=== PATIENT | female | born 1975 | race African-American/Black ===

== ENCOUNTER 2020-06-11 05:25 | Inpatient (IN) | payer MEDICARE, OTHER ==
[~2020-06-11] VITALS: Ht 167.6 cm; Wt 72.6 kg
[2020-06-11] VITALS (11 sets, daily range): BP systolic 120–170; BP diastolic 75–97
[2020-06-11] MEDS ORDERED: METFORMIN HCL500 M1 ORAL (05:31)
[2020-06-11] MEDS ORDERED: ASPIRIN81 MG ORAL (05:31)
--- NOTE | 2020-06-11 06:12 | Emergency Room Report ---
History of Present Illness General Chief Complaint: Dyspnea/Respdistress Source: Patient, EMS Present Illness HPI Disclaimer: Please note that this report is being documented using DRAGON technology. This can lead to erroneous entry secondary to incorrect interpretation by the dictating instrument. HPI: 44-year-old female history of HIV undetectable viral load, prediabetes, hypertension presents for evaluation of cough and shortness of breath. Arrives by EMS who stated she was 95% on room air and improved to the low 90s with facemask. Diagnosed with pneumonia [facility] 2 days ago. Reportedly tested negative for COVID-19 virus at that time. She was discharged on azithromycin, amoxicillin and steroids. Reports getting worse. Increasing shortness of breath and cough as well as fatigue and myalgias. Denies fever vomiting or diarrhea. Denies chest pain, palpitations. No exacerbating or relieving factors. PMH: HIV, prediabetes, obesity PSH: Reviewed Allergies: None Social Hx: Denies Allergies: Coded Allergies: No Known Allergies (Unverified , 06/11/20) COVID-19 Screening Contact w/high risk pt: No Experienced COVID-19 symptoms?: Yes COVID-19 Testing performed MATHEMATICS LECTURER: No COVID-19 Screening: Negative COVID-19 COVID-19 Testing Source: 06/09/20 Nursing Documentation-PMH Hx Asthma: Yes Hx Diabetes: Yes Review of Systems All Other Systems: negative except mentioned in HPI Physical Exam Vital Signs Date Time Temp Pulse Resp B/P (MAP) Pulse Ox O2 Delivery O2 Flow Rate FiO2 06/11/20 05:26 99.0 110 20 150/90 (110) 93 Non-Rebreather 15.0 General: Awake and alert, no acute distress HEENT: NC/AT. EOMI. Cardiovascular: Tachycardic Resp: Increased work of breathing, tachypnea, crackles left side Abdomen: Abdomen is soft, nondistended. Nontender Skin: Intact. No abrasions, laceration or rash over the exposed skin MSK: Normal tone and bulk. Moving all extremities. No obvious deformity. Neuro: Awake and alert. Mentating appropriately. Procedures Critical Care Time Critical Care Time Total critical care time: Approximately 45 minutes Due to a high probability of clinically significant, life threatening deterioration, the patient required the highest level of preparedness to intervene emergently and I personally spent this critical care time directly and personally managing the patient. This critical care time included obtaining a history, examining the patient, pulse oximetry, ordering and reviewing studies, ordering treatments, evaluating response to treatment and updating management plan as needed, frequent reassessment and discussion with other providers as well as arranging for ultimate disposition. This critical to care time was performed to assess and manage the high probability of life-threatening deterioration that could result in multiorgan failure. This critical care time is separate from the separately billable procedures and treating other patients. Medical Decision Making Diagnostic Impression: Primary Impression: Pneumonia Additional Impressions: Suspected COVID-19 virus infection Hypoxia JIMENA (acute kidney injury) Elevated d-dimer ER Course Is a 44-year-old female presenting for evaluation of worsening cough and shortness of breath recently being diagnosed with pneumonia. Patient is on antibiotics but appears to be getting worse. Concern for worsening pneumonia, COVID-19 infection, influenza, sepsis among others. Started on 30 cc/kg bolus. Patient was reportedly hypoxic on room air and improving with facemask but work of breathing remains increased. Will require admission. EKG shows sinus tachycardia but no obvious ischemic changes. Chest x-ray shows bilateral basilar congestion possible infiltrate right lower lobe. Patient treated with Zosyn. IV steroids given. Initial ABG shows 94% oxygen saturation. We will continue nonrebreather and recheck. Inflammatory markers and D-dimer elevated. Treated with Lovenox. Suspicious for COVID-19 infection. Patient admitted to panel physician, Dr. Bolton. Laboratory Tests Test 06/11/20 06:00 06/11/20 06:53 White Blood Count 8.0 K/UL (4.8-10.8) Red Blood Count 5.23 M/UL (4.20-5.40) Hemoglobin 16.1 G/DL (12.0-16.0) H Hematocrit 45.9 % (37.0-47.0) Mean Corpuscular Volume 88 FL (80-99) Mean Corpuscular Hemoglobin 30.8 PG (27.0-31.0) Mean Corpuscular Hemoglobin Concent 35.1 G/DL (32.0-36.0) Red Cell Distribution Width 12.8 % (11.6-14.8) Platelet Count 222 K/UL (150-450) Mean Platelet Volume 7.2 FL (6.5-10.1) Neutrophils (%) (Auto) 83.5 % (45.0-75.0) H Lymphocytes (%) (Auto) 11.5 % (20.0-45.0) L Monocytes (%) (Auto) 4.7 % (1.0-10.0) Eosinophils (%) (Auto) 0.0 % (0.0-3.0) Basophils (%) (Auto) 0.3 % (0.0-2.0) Prothrombin Time 10.7 SEC (9.30-11.50) Prothrombin Time INR 1.0 (0.9-1.1) Activated Partial Thromboplast Time 29 SEC (23-33) D-Dimer 2.05 mg/L FEU (0.00-0.49) H Sodium Level 136 MMOL/L (136-145) Potassium Level 4.5 MMOL/L (3.5-5.1) Chloride Level 101 MMOL/L (98-107) Carbon Dioxide Level 22 MMOL/L (21-32) Anion Gap 13 mmol/L (5-15) Blood Urea Nitrogen 18 mg/dL (7-18) Creatinine 1.8 MG/DL (0.55-1.30) H Estimated Glomerular Filtration Rate 37.1 mL/min (>60) Glucose Level 131 MG/DL (74-106) H Lactic Acid Level 1.30 mmol/L (0.4-2.0) Calcium Level 8.8 MG/DL (8.5-10.1) Phosphorus Level 3.2 MG/DL (2.5-4.9) Magnesium Level 2.2 MG/DL (1.8-2.4) Ferritin 493 NG/ML (8-388) H Total Bilirubin 0.5 MG/DL (0.2-1.0) Aspartate Amino Transferase (AST) 98 U/L (15-37) H Alanine Aminotransferase (ALT) 66 U/L (12-78) Alkaline Phosphatase 91 U/L (46-116) Lactate Dehydrogenase 425 U/L (81-234) H Total Creatine Kinase 2158 U/L (26-308) H Creatine Kinase MB 0.7 NG/ML (0.0-3.6) Creatine Kinase MB Relative Index 0.0 Troponin I 0.000 ng/mL (0.000-0.056) C-Reactive Protein, Quantitative 9.5 mg/dL (0.00-0.90) H Pro-B-Type Natriuretic Peptide Pending Total Protein 9.4 G/DL (6.4-8.2) H Albumin 3.7 G/DL (3.4-5.0) Globulin 5.7 g/dL Albumin/Globulin Ratio 0.6 (1.0-2.7) L Lipase 131 U/L (73-393) Arterial Blood pH 7.413 (7.350-7.450) Arterial Blood Partial Pressure CO2 30.8 mmHg (35.0-45.0) L Arterial Blood Partial Pressure O2 73.0 mmHg (75.0-100.0) L Arterial Blood HCO3 19.2 mmol/L (22.0-26.0) L Arterial Blood Oxygen Saturation 94.1 % (95-100) L Arterial Blood Base Excess -4.0 (-2-2) L Manan Test Positive EKG Diagnostic Results Troponin ordered: Yes When was troponin ordered?: Jun 11, 2020 EKG Time: 06:18 Rate: tachycardiac Rhythm: NSR ST Segments: no acute changes Other Impression Sinus rhythm, normal axis, normal intervals, no ST segment changes. Rhythm Strip Diag. Results Rhythm Strip Time: 06:18 EP Interpretation: yes Rate: 104 Rhythm: NSR, no PVC's, no ectopy Chest X-Ray Diagnostic Results Chest X-Ray Diagnostic Results : Chest X-Ray Ordered: Yes # of Views/Limited/Complete: 1 View Indication: Shortness of Breath EP Interpretation: Yes Interpretation: no effusion, no pneumothorax, other - Infiltrate right lower lobe with bilateral basilar congestion. Impression: Other - Right lower lobe pneumonia Electronically Signed by: Electronically signed by Dr. Reagan Gutierrez MD Last Vital Signs Date Time Temp Pulse Resp B/P (MAP) Pulse Ox O2 Delivery O2 Flow Rate FiO2 06/11/20 05:45 110 20 Non-Rebreather 15.0 06/11/20 05:45 99.0 150/90 93 Disposition: ADMITTED INPATIENT Condition: Serious Reagan Gutierrez MD Jun 11, 2020 06:12
[2020-06-11] MEDS ORDERED: dexAMETHasone 10mg/ml Inj IV ONE (06:45)
--- NOTE | 2020-06-11 06:50 | Diagnostic Imaging Report ---
EXAM: XR Chest, 1 View CLINICAL HISTORY: COUGH TECHNIQUE: Frontal view of the chest. COMPARISON: 10/03/2006. FINDINGS: Lungs: Patient's overlying oxygen mask partly obscures the right lung apex. Hazy opacities in the lower lung zones which may partly reflect atelectasis. Small effusion difficult to exclude. Severe low lung volume limit evaluation. Pleural space: Unremarkable. No pneumothorax. Heart: Cardiovascular silhouette appears prominent and accentuated by low lung volume. Mediastinum: Unremarkable. Bones/joints: Scoliosis of the thoracic spine. Vasculature: Slight prominence of the central vasculature. Tubes, lines and devices: Overlying chest leads obscure portion of the chest. IMPRESSION: 1. Low lung volume. 2. Possible mild congestion. 3. Mild bibasilar atelectasis. Tiny bilateral pleural effusions difficult to exclude 4. Upper limits of normal cardiovascular silhouette
[2020-06-11 07:14] LABS: BASOPHILS % (AUTO) 0.3 % (0.0-2.0); HEMATOCRIT 45.9 % (37.0-47.0); HEMOGLOBIN 16.1 G/DL (12.0-16.0); LYMPHOCYTES % (AUTO) 11.5 % (20.0-45.0); MEAN CORPUSCULAR VOLUME 88 FL (80-99); MONOCYTES % (AUTO) 4.7 % (1.0-10.0); NEUTROPHILS % (AUTO) 83.5 % (45.0-75.0); PLATELET COUNT 222 K/UL (150-450); RED BLOOD COUNT 5.23 M/UL (4.20-5.40); RED CELL DISTRIBUTION WIDTH 12.8 % (11.6-14.8)
[2020-06-11 07:27] LABS: ANION GAP 13 mmol/L (5-15); BLOOD UREA NITROGEN 18 mg/dL (7-18); CALCIUM 8.8 MG/DL (8.5-10.1); CARBON DIOXIDE 22 MMOL/L (21-32); CHLORIDE 101 MMOL/L (98-107); CREATININE 1.8 MG/DL (0.55-1.30); POTASSIUM 4.5 MMOL/L (3.5-5.1); SODIUM 136 MMOL/L (136-145)
[2020-06-11] MEDS ORDERED: Piperacillin/Tazobactam 3.375 GM in NS 110 ML IVPB ONE (07:30)
[2020-06-11 07:42] LABS: ALANINE AMINOTRANSFERASE 66 U/L (12-78); ALBUMIN 3.7 G/DL (3.4-5.0); ALBUMIN/GLOBULIN RATIO 0.6 (1.0-2.7); ALKALINE PHOSPHATASE 91 U/L (46-116); ASPARTATE AMINO TRANSFERASE 98 U/L (15-37); BILIRUBIN,TOTAL 0.5 MG/DL (0.2-1.0); CKMB 0.7 NG/ML (0.0-3.6); CREATINE KINASE 2158 U/L (26-308); FERRITIN 493 NG/ML (8-388); LACTATE DEHYDROGENASE 425 U/L (81-234); PHOSPHORUS 3.2 MG/DL (2.5-4.9)
[2020-06-11] MEDS ORDERED: Acetaminophen 500mg (ES) tab ORAL ONE (08:00)
[2020-06-11] MEDS ORDERED: Enoxaparin 60mg Inj SUBQ ONE (08:00)
[2020-06-11 09:24] LABS: APPEARANCE,URINE CLEAR; BILIRUBIN, URINE NEGATIVE (NEGATIVE); COLOR,URINE PALE YELLOW; GLUCOSE, URINE (UA) NEGATIVE (NEGATIVE); KETONES,URINE 1+ (NEGATIVE); LEUKOCYTE ESTERASE ,URINE NEGATIVE (NEGATIVE); NITRITE,URINE NEGATIVE (NEGATIVE); PH,URINE 5 (4.5-8.0); PROTEIN,URINE 3+ (NEGATIVE); UROBILINOGEN,URINE NORMAL MG/DL (0.0-1.0)
--- NOTE | 2020-06-11 10:15 | History and Physical Report ---
DATE OF ADMISSION: 06/11/2020 REASON FOR ADMISSION: Possible COVID pneumonia. HISTORY OF PRESENT ILLNESS: The patient is a 44-year-old female who presents with what appears to be atelectasis and what was described as fevers and recent pneumonia. The patient is unsure as to COVID status. The patient currently diagnosed with pneumonia at an outside hospital three days ago with negative COVID rapid test. The patient presents with worsening shortness of breath. The patient with significantly low oxygen saturations on admission but is now 94% on 2 liters. The patient's care discussed and reviewed with the ER physician. The patient also has a history of HIV. PAST MEDICAL HISTORY: HIV, prediabetes, obesity. PAST SURGICAL HISTORY: Reviewed. ALLERGIES: None. SOCIAL HISTORY: Nonsmoker and nondrinker. No IV drug use. PHYSICAL EXAMINATION: GENERAL: A well-developed female, in mild distress. VITAL SIGNS: Reviewed. Temperature 99, pulse 100, respiratory rate 29, blood pressure 147/86, O2 saturation 94% on 2 liters. LUNGS: Moderate breath sounds. CARDIAC: Mildly tachycardic. ABDOMEN: Soft, nontender. EXTREMITIES: No edema. LABORATORY DATA: Reviewed. Creatinine 1.8. Ferritin 493. LDH 425. Total CK 2158. C-reactive protein 9.5. IMPRESSION: 1. Pneumonia, possible COVID. 2. Elevated creatine kinase, possible mild rhabdo. 3. Elevated creatinine with acute renal failure. 4. HIV, currently nondetectable. 5. Noted metabolic acidosis and hypoxemia. RECOMMENDATION: Admit. ID evaluation to see. close monitoring in ICU . IV hydration. Empiric antibiotics. DVT prophylaxis. Obtain venous ultrasound to rule out DVT. Monitor clinically for changes. Admitted to telemetry and monitor oxygen saturation and worsening overall respiratory status. We will follow clinically for further changes. Robinson Bolton M.D. DR: Oniel JOB#: [id number] CC: ESTRELLA
--- NOTE | 2020-06-11 14:00 | Consultation ---
DATE OF CONSULTATION: 06/11/2020 INFECTIOUS DISEASE CONSULTATION CONSULTING PHYSICIAN: Kyle Calderon MD. REFERRING PHYSICIAN: Robinson Bolton MD. REASON FOR CONSULTATION: Pneumonia. HISTORY OF PRESENTING ILLNESS: This is a 44-year-old lady with history of HIV, T-cell count of 326, viral load undetectable, who comes in with cough, shortness of breath, fever, chills along with nausea. She was found to have pneumonia. COVID-19 test was negative and an Infectious Diseases consultation has been obtained for antibiotics. PAST MEDICAL HISTORY: 1. History of HIV. 2. History of prediabetes. SOCIAL HISTORY: She does not smoke, drink, or use drugs. FAMILY HISTORY: Noncontributory. REVIEW OF SYSTEMS: RESPIRATORY: She has fever and chills. She has cough. She has shortness of breath. No chest pain. CARDIAC: No chest pain. No palpitation. No dizziness. No syncope. GASTROINTESTINAL: No nausea. No vomiting. No abdominal pain or diarrhea. MEDICATIONS: As an inpatient, she has received Tylenol, Zosyn, dexamethasone. ALLERGIES: No known drug allergies. PHYSICAL EXAMINATION: VITAL SIGNS: Temperature is 99, T-max of 99, pulse of 100, respiratory rate of 29, blood pressure 147/86. O2 saturation of 94% on 2 liters of oxygen. Examination deferred due to possibility of COVID-19. LABORATORY AND DIAGNOSTIC DATA: White count of 8, hemoglobin 16.1, hematocrit 45.9, MCV 88, platelet count of 222,000, neutrophils of 83%. Sodium 136, potassium 4.5, chloride 101, bicarb 22, BUN 18, creatinine 1.8. Glucose 131. Calcium 8. Ferritin 493. Total bilirubin 0.5, AST 98, ALT 66, alkaline phosphatase 91. LDH 425. CK of 2158, CK-MB of 0.7. Troponin 0. C-reactive protein 9.5. Total protein 9.4, albumin 3.7. Lipase of 131. UA showing 0 to 2 white cells. Chest x-ray showing low lung volumes. Mild bibasilar atelectasis. Tiny bilateral pleural effusion. ASSESSMENT: This is a 44-year-old lady with history of HIV, T-cell count of 326, viral load undetectable, and prediabetes, who comes in with fever, chills, cough, shortness of breath and is found to have, 1. Community-acquired pneumonia versus atypical pneumonia. 2. COVID-19 at an outside facility. 3. Prediabetes. 4. HIV. PLAN: 1. We will start the patient on ceftriaxone and doxycycline. 2. We will follow up cultures and adjust antibiotics accordingly. 3. We will order sputum for Gram stain and culture. I would like to thank Dr. Bolton for this consultation. Kyle Calderon M.D. DR: MARISSA JOB#: [id number] CC:
[2020-06-11] MEDS ORDERED: Azithromycin 500 MG in NS 275 ML IV ONE (16:15)
[2020-06-11] MEDS ORDERED: Albuterol/Ipratropium 3ml neb HHN ONE (19:30)
[2020-06-11] MEDS ORDERED: propofoL 1,000mg/100ml 100 ML IV ONE (21:11)
--- NOTE | 2020-06-11 21:22 | Diagnostic Imaging Report ---
EXAM: XR Chest, 1 View CLINICAL HISTORY: SOB TECHNIQUE: Frontal view of the chest. COMPARISON: 06/11/2020. FINDINGS: Lungs: Bilateral vague opacities within the mid lower lung field suggestive of atelectasis versus infiltrates, stable. Pleural space: Unremarkable. No pneumothorax. Heart: Unremarkable. No cardiomegaly. Mediastinum: Unremarkable. Bones/joints: Unremarkable. Other findings: Decreased inspiratory effort. IMPRESSION: Unchanged bilateral mid lower lung field density suggestive of atelectasis versus infiltrates. Cannot exclude underlying pleural effusions.
[2020-06-11] MEDS: Doxycycline Monohydrate 100mg ORAL SCH (21:30)
[2020-06-11] MEDS: cefTRIAXone 1 GM in NS 55 ML IVPB SCH (21:32)
--- NOTE | 2020-06-11 21:42 | Emergency Room Report ---
History of Present Illness General Chief Complaint: Dyspnea/Respdistress Source: Patient, EMS Present Illness Allergies: Coded Allergies: No Known Allergies (Unverified , 06/11/20) COVID-19 Screening Contact w/high risk pt: No Experienced COVID-19 symptoms?: Yes COVID-19 Testing performed SURGICAL CONSULTANT: No COVID-19 Screening: Negative COVID-19 COVID-19 Testing Source: 06/09/20 Nursing Documentation-[facility] Hx Asthma: Yes Hx Diabetes: Yes Physical Exam Vital Signs Date Time Temp Pulse Resp B/P (MAP) Pulse Ox O2 Delivery O2 Flow Rate FiO2 06/11/20 05:26 99.0 110 40 150/90 (110) 93 Non-Rebreather 15.0 Procedures Intubation Intubation : Consent: Emergent Time of Intubation: 21:17 Intubation Method: orotracheal Tube Size (cm): 7.5 Medications: Etomidate, Rocuronium, Succinylcholine Breath Sounds after Intubation: equal, right greater than left Post Intubation Xray: Yes Attempts: One Patient Tolerated: Well Complications: None Progress Bilateral patchy infiltrates continue. Adequate intratracheal tube position. Direct visualization of vocal cords with MAC 4 blade, positive end-tidal CO2. He was premedicated with rocuronium as well as etomidate. Patient was started on a propofol drip. Medical Decision Making Diagnostic Impression: Primary Impression: Pneumonia Additional Impressions: Elevated d-dimer Suspected COVID-19 virus infection Hypoxia JIMENA (acute kidney injury) Last Vital Signs Date Time Temp Pulse Resp B/P (MAP) Pulse Ox O2 Delivery O2 Flow Rate FiO2 06/11/20 19:45 99.0 92 43 149/78 88 Non-Rebreather 15.0 Disposition: ADMITTED INPATIENT Condition: Serious Referrals: NOT CHOSEN IPA/,REFERRING (PCP) Arron Christie MD Jun 11, 2020 21:42
[2020-06-11] MEDS: propofoL 1,000mg/100ml 100 ML IV SCH (21:48)
[2020-06-11] MEDS ORDERED: LORazepam Inj 2mg/ml 1ml ONE (22:10)
--- NOTE | 2020-06-11 22:12 | Diagnostic Imaging Report ---
EXAM: XR Chest, 1 View CLINICAL HISTORY: TUBE PLCMT TECHNIQUE: Frontal view of the chest. COMPARISON: 06/11/2020. FINDINGS: Lungs: Mild bilateral basilar airspace opacity suggestive of atelectasis versus infiltrates, stable in the interval. Pleural space: Unremarkable. No pneumothorax. Heart: Unremarkable. No cardiomegaly. Mediastinum: Unremarkable. Bones/joints: Unremarkable. Tubes, lines and devices: There is an endotracheal tube with the tip 3 cm above kyung. IMPRESSION: 1. Stable bilateral basilar densities suggestive of atelectasis versus infiltrates. 2. Lines and tubes as described.
[2020-06-11] MEDS ORDERED: LORazepam Inj 2mg/ml 1ml IV ONE (22:30)
[2020-06-11] MEDS: fentaNYL 2500mcg/NS 250ml 250 ML IV SCH (23:05)
[2020-06-11 23:09] LABS: BASOPHILS % (AUTO) 0.2 % (0.0-2.0); HEMATOCRIT 45.6 % (37.0-47.0); LYMPHOCYTES % (AUTO) 12.6 % (20.0-45.0); MEAN CORPUSCULAR VOLUME 88 FL (80-99); MONOCYTES % (AUTO) 6.4 % (1.0-10.0); NEUTROPHILS % (AUTO) 80.9 % (45.0-75.0); PLATELET COUNT 228 K/UL (150-450); RED BLOOD COUNT 5.19 M/UL (4.20-5.40); RED CELL DISTRIBUTION WIDTH 13.4 % (11.6-14.8)
[2020-06-11 23:28] LABS: CALCIUM 8.4 MG/DL (8.5-10.1); CREATININE 1.6 MG/DL (0.55-1.30); POTASSIUM 4.7 MMOL/L (3.5-5.1)
[2020-06-12] VITALS (23 sets, daily range): BP systolic 112–136; BP diastolic 67–87
[2020-06-12] MEDS: propofoL 1,000mg/100ml 100 ML IV SCH ×5 (00:46→20:01)
[2020-06-12 05:37] LABS: BASOPHILS % (AUTO) 0.7 % (0.0-2.0); HEMATOCRIT 40.9 % (37.0-47.0); HEMOGLOBIN 14.6 G/DL (12.0-16.0); LYMPHOCYTES % (AUTO) 13.4 % (20.0-45.0); MEAN CORPUSCULAR VOLUME 86 FL (80-99); MONOCYTES % (AUTO) 6.6 % (1.0-10.0); NEUTROPHILS % (AUTO) 79.3 % (45.0-75.0); PLATELET COUNT 231 K/UL (150-450); RED BLOOD COUNT 4.75 M/UL (4.20-5.40); RED CELL DISTRIBUTION WIDTH 14.5 % (11.6-14.8); WHITE BLOOD COUNT 9.8 K/UL (4.8-10.8)
[2020-06-12 06:12] LABS: ANION GAP 10 mmol/L (5-15); BLOOD UREA NITROGEN 21 mg/dL (7-18); CALCIUM 7.9 MG/DL (8.5-10.1); CARBON DIOXIDE 24 MMOL/L (21-32); CHLORIDE 103 MMOL/L (98-107); CREATINE KINASE 951 U/L (26-308); CREATININE 1.4 MG/DL (0.55-1.30); POTASSIUM 5.1 MMOL/L (3.5-5.1); SODIUM 137 MMOL/L (136-145)
[2020-06-12] MEDS: fentaNYL 2500mcg/NS 250ml 250 ML IV SCH ×2 (08:17→16:16)
[2020-06-12] MEDS: Doxycycline Monohydrate 100mg ORAL SCH ×2 (08:20→18:22)
[2020-06-12] MEDS: Enoxaparin 40mg Inj SUBQ SCH (08:31)
--- NOTE | 2020-06-12 09:17 | General Progress Note ---
Subjective ROS Limited/Unobtainable: No Constitutional: Reports: no symptoms HEENT: Reports: no symptoms Cardiovascular: Reports: no symptoms Respiratory: Reports: cough, shortness of breath Gastrointestinal/Abdominal: Reports: no symptoms Genitourinary: Reports: no symptoms Neurologic/Psychiatric: Reports: no symptoms Endocrine: Reports: no symptoms Hematologic/Lymphatic: Reports: no symptoms Allergies: Coded Allergies: No Known Allergies (Unverified , 06/11/20) All Systems: reviewed and negative except above Subjective 44 yo female hx hiv and recent pna(covid neg) BIBA ambulance for sob and hypoxemia. intubated for resp failure. PMH: as above PSH: Unknown Meds: none All: NKDA Fhx:Unknown SHx: no known Hx t/e/d Objective Last 24 Hour Vital Signs Date Time Temp Pulse Resp B/P (MAP) Pulse Ox O2 Delivery O2 Flow Rate FiO2 06/12/20 08:17 18 116/72 Mechanical Ventilator 100 06/12/20 06:45 86 16 100 06/12/20 06:00 99.0 86 18 112/74 98 Mechanical Ventilator 100 06/12/20 06:00 18 112/74 Mechanical Ventilator 100 06/12/20 06:00 18 112/74 Mechanical Ventilator 100 06/12/20 05:05 18 121/81 Mechanical Ventilator 15.0 100 06/12/20 05:00 99.0 86 16 121/81 97 Mechanical Ventilator 100 06/12/20 05:00 16 121/81 Mechanical Ventilator 100 06/12/20 05:00 16 121/81 Mechanical Ventilator 100 06/12/20 04:00 99.0 82 16 112/74 98 Mechanical Ventilator 100 06/12/20 04:00 16 112/74 Mechanical Ventilator 100 06/12/20 04:00 16 112/74 100 06/12/20 03:00 99.0 80 17 116/75 97 Mechanical Ventilator 100 06/12/20 03:00 17 116/75 Mechanical Ventilator 100 06/12/20 03:00 17 116/75 Mechanical Ventilator 100 06/12/20 02:38 102 16 100 06/12/20 02:00 18 120/80 Mechanical Ventilator 100 06/12/20 02:00 18 120/80 Mechanical Ventilator 100 06/12/20 02:00 99.0 80 18 120/80 97 Mechanical Ventilator 100 12/15/20 01:00 99.0 83 20 123/80 97 Mechanical Ventilator 100 06/12/20 01:00 20 123/80 Mechanical Ventilator 100 06/12/20 01:00 20 123/80 Mechanical Ventilator 100 06/12/20 00:46 24 123/78 Mechanical Ventilator 100 06/12/20 00:00 22 123/79 Mechanical Ventilator 100 06/12/20 00:00 22 123/79 Mechanical Ventilator 100 06/12/20 00:00 99.0 84 22 123/79 98 Mechanical Ventilator 100 06/11/20 23:05 36 121/84 Mechanical Ventilator 100 06/11/20 23:00 99.0 94 32 134/88 97 Mechanical Ventilator 100 06/11/20 23:00 119 36 121/84 88 06/11/20 23:00 32 134/88 Mechanical Ventilator 100 06/11/20 22:29 119 16 149/78 88 06/11/20 22:00 99.0 111 21 170/97 96 Mechanical Ventilator 100 06/11/20 22:00 21 170/97 Mechanical Ventilator 100 06/11/20 22:00 100 06/11/20 21:48 16 149/78 Non-Rebreather 100 06/11/20 21:33 119 16 100 06/11/20 21:00 99.0 118 21 148/82 92 Non-Rebreather 15.0 06/11/20 19:45 99.0 92 43 149/78 88 Non-Rebreather 15.0 06/11/20 19:43 88 41 88 Simple Mask 10.0 97 38 87 06/11/20 19:30 99.0 118 40 138/84 85 Simple Mask 10.0 06/11/20 19:10 99.0 120 40 135/84 70 Nasal Cannula 2.0 06/11/20 16:47 88 26 120/75 93 Nasal Cannula 2.0 06/11/20 13:46 96 22 140/86 94 Nasal Cannula 2.0 Intake and Output 06/11/20 06/12/20 19:00 07:00 Intake Total 1250.338 ml Balance 1250.338 ml Intake IV Total 1250.338 ml Laboratory Tests 06/11/20 20:00: Arterial Blood pH 7.394, Arterial Blood Partial Pressure CO2 30.0L, Arterial Blood Partial Pressure O2 60.4L, Arterial Blood HCO3 17.9*L, Arterial Blood Oxygen Saturation 90.3L, Arterial Blood Base Excess -5.5L, Manan Test Positive 06/11/20 22:40: White Blood Count 10.0, Red Blood Count 5.19, Hemoglobin 16.0, Hematocrit 45.6, Mean Corpuscular Volume 88, Mean Corpuscular Hemoglobin 30.7, Mean Corpuscular Hemoglobin Concent 35.0, Red Cell Distribution Width 13.4, Platelet Count 228, Mean Platelet Volume 7.4, Neutrophils (%) (Auto) 80.9H, Lymphocytes (%) (Auto) 12.6L, Monocytes (%) (Auto) 6.4, Eosinophils (%) (Auto) 0.0, Basophils (%) (Auto) 0.2, Sodium Level 137, Potassium Level 4.7, Chloride Level 102, Carbon Dioxide Level 23, Anion Gap 13, Blood Urea Nitrogen 18, Creatinine 1.6H, Estimat Glomerular Filtration Rate 42.4, Glucose Level 156H, Calcium Level 8.4L, Triglycerides Level 217H 06/11/20 22:50: Arterial Blood pH 7.285L, Arterial Blood Partial Pressure CO2 42.5, Arterial Blood Partial Pressure O2 98.3, Arterial Blood HCO3 19.7L, Arterial Blood Oxygen Saturation 96.1, Arterial Blood Base Excess -6.7L, Manan Test Positive 06/12/20 05:00: White Blood Count 9.8, Red Blood Count 4.75, Hemoglobin 14.6, Hematocrit 40.9, Mean Corpuscular Volume 86, Mean Corpuscular Hemoglobin 30.8, Mean Corpuscular Hemoglobin Concent 35.7, Red Cell Distribution Width 14.5, Platelet Count 231, Mean Platelet Volume 7.3, Neutrophils (%) (Auto) 79.3H, Lymphocytes (%) (Auto) 13.4L, Monocytes (%) (Auto) 6.6, Eosinophils (%) (Auto) 0.0, Basophils (%) (Auto) 0.7, Sodium Level 137, Potassium Level 5.1, Chloride Level 103, Carbon Dioxide Level 24, Anion Gap 10, Blood Urea Nitrogen 21H, Creatinine 1.4H, Estimat Glomerular Filtration Rate 49.6, Glucose Level 150H, Calcium Level 7.9L, Total Creatine Kinase 951H Height (Feet): 5 Height (Inches): 6.00 Weight (Pounds): 160 General Appearance: WD/WN, lethargic EENT: normal ENT inspection Neck: supple Cardiovascular: normal rate, regular rhythm Respiratory/Chest: lungs clear, normal breath sounds, no respiratory distress, no accessory muscle use Abdomen: normal bowel sounds, non tender, soft, no organomegaly Edema: no edema noted Leg (R), no edema noted Pedal (L) Neurologic: unresponsive Assessment/Plan Assessment/Plan: a/ resp failure pna/possible covid hiv arf rhabdo p/ vent resp rx follow up covid abx per id monitor ck dvt/stress ulcer prophylaxis check venous duplex Karel Key MD Jun 12, 2020 09:17
--- NOTE | 2020-06-12 12:40 | Critical Care Progress Note ---
Assessment/Plan Assessment/Plan IMPRESSION: 1. Pneumonia, possible COVID. 2. Elevated creatine kinase, possible mild rhabdo. 3. Elevated creatinine with acute renal failure. 4. HIV, currently nondetectable. 5. metabolic acidosis 6. hypoxemia. 7. Acute hypoxemic respiratory failure RECOMMENDATION: ID to see. IV hydration. Empiric antibiotics as is and Decadron. DVT prophylaxis. venous ultrasound to rule out DVT. Monitor clinically for changes. dietary and NGT supportive care medications/laboratory data/nursing notes/ICU care reviewed in detail note reviewed and edited care discussed with RN and RT ICU time spent >40 minutes Critical Care - Subjective Interval Events: care noted intubated last night acidemic repeat pending sedated still awaiting ICU bed ROS Limited/Unobtainable: Yes Condition: critical I&O: Intake and Output 06/11/20 06/12/20 19:00 07:00 Intake Total 1272.111 ml Balance 1272.111 ml Intake IV Total 1272.111 ml Critical Care - Objective ET-Tube: 7.0 ET Position: 24 Last 24 Hour Vital Signs Date Time Temp Pulse Resp B/P (MAP) Pulse Ox O2 Delivery O2 Flow Rate FiO2 06/12/20 10:40 81 21 100 06/12/20 09:12 18 119/78 Mechanical Ventilator 100 06/12/20 09:10 18 115/65 Mechanical Ventilator 100 06/12/20 09:00 93 18 118/68 98 Mechanical Ventilator 100 06/12/20 09:00 18 118/68 Mechanical Ventilator 100 06/12/20 08:17 18 116/72 Mechanical Ventilator 100 06/12/20 08:00 99.3 89 18 121/72 99 Mechanical Ventilator 100 06/12/20 08:00 16 121/72 Mechanical Ventilator 100 06/12/20 07:00 18 123/84 Mechanical Ventilator 100 06/12/20 07:00 16 117/69 Mechanical Ventilator 100 06/12/20 07:00 90 18 117/69 99 Mechanical Ventilator 100 06/12/20 06:45 86 16 100 06/12/20 06:00 99.0 86 18 112/74 98 Mechanical Ventilator 100 06/12/20 06:00 18 112/74 Mechanical Ventilator 100 06/12/20 06:00 18 112/74 Mechanical Ventilator 100 06/12/20 05:05 18 121/81 Mechanical Ventilator 15.0 100 06/12/20 05:00 99.0 86 16 121/81 97 Mechanical Ventilator 100 06/12/20 05:00 16 121/81 Mechanical Ventilator 100 06/12/20 05:00 16 121/81 Mechanical Ventilator 100 06/12/20 04:00 99.0 82 16 112/74 98 Mechanical Ventilator 100 06/12/20 04:00 16 112/74 Mechanical Ventilator 100 06/12/20 04:00 16 112/74 100 06/12/20 03:00 99.0 80 17 116/75 97 Mechanical Ventilator 100 06/12/20 03:00 17 116/75 Mechanical Ventilator 100 06/12/20 03:00 17 116/75 Mechanical Ventilator 100 06/12/20 02:38 102 16 100 06/12/20 02:00 18 120/80 Mechanical Ventilator 100 06/12/20 02:00 18 120/80 Mechanical Ventilator 100 06/12/20 02:00 99.0 80 18 120/80 97 Mechanical Ventilator 100 06/12/20 01:00 99.0 83 20 123/80 97 Mechanical Ventilator 100 06/12/20 01:00 20 123/80 Mechanical Ventilator 100 06/12/20 01:00 20 123/80 Mechanical Ventilator 100 06/12/20 00:46 24 123/78 Mechanical Ventilator 100 06/12/20 00:00 22 123/79 Mechanical Ventilator 100 06/12/20 00:00 22 123/79 Mechanical Ventilator 100 06/12/20 00:00 99.0 84 22 123/79 98 Mechanical Ventilator 100 06/11/20 23:05 36 121/84 Mechanical Ventilator 100 06/11/20 23:00 99.0 94 32 134/88 97 Mechanical Ventilator 100 06/11/20 23:00 119 36 121/84 88 06/11/20 23:00 32 134/88 Mechanical Ventilator 100 06/11/20 22:29 119 16 149/78 88 06/11/20 22:00 99.0 111 21 170/97 96 Mechanical Ventilator 100 06/11/20 22:00 21 170/97 Mechanical Ventilator 100 06/11/20 22:00 100 06/11/20 21:48 16 149/78 Non-Rebreather 100 06/11/20 21:33 119 16 100 06/11/20 21:00 99.0 118 21 148/82 92 Non-Rebreather 15.0 06/11/20 19:45 99.0 92 43 149/78 88 Non-Rebreather 15.0 06/11/20 19:43 88 41 88 Simple Mask 10.0 97 38 87 06/11/20 19:30 99.0 118 40 138/84 85 Simple Mask 10.0 06/11/20 19:10 99.0 120 40 135/84 70 Nasal Cannula 2.0 06/11/20 16:47 88 26 120/75 93 Nasal Cannula 2.0 06/11/20 13:46 96 22 140/86 94 Nasal Cannula 2.0 Labs: Laboratory Tests 06/11/20 20:00: Arterial Blood pH 7.394, Arterial Blood Partial Pressure CO2 30.0L, Arterial Blood Partial Pressure O2 60.4L, Arterial Blood HCO3 17.9*L, Arterial Blood Oxygen Saturation 90.3L, Arterial Blood Base Excess -5.5L, Manan Test Positive 06/11/20 22:40: White Blood Count 10.0, Red Blood Count 5.19, Hemoglobin 16.0, Hematocrit 45.6, Mean Corpuscular Volume 88, Mean Corpuscular Hemoglobin 30.7, Mean Corpuscular Hemoglobin Concent 35.0, Red Cell Distribution Width 13.4, Platelet Count 228, Mean Platelet Volume 7.4, Neutrophils (%) (Auto) 80.9H, Lymphocytes (%) (Auto) 12.6L, Monocytes (%) (Auto) 6.4, Eosinophils (%) (Auto) 0.0, Basophils (%) (Auto) 0.2, Sodium Level 137, Potassium Level 4.7, Chloride Level 102, Carbon Dioxide Level 23, Anion Gap 13, Blood Urea Nitrogen 18, Creatinine 1.6H, Estimat Glomerular Filtration Rate 42.4, Glucose Level 156H, Calcium Level 8.4L, Triglycerides Level 217H 06/11/20 22:50: Arterial Blood pH 7.285L, Arterial Blood Partial Pressure CO2 42.5, Arterial Blood Partial Pressure O2 98.3, Arterial Blood HCO3 19.7L, Arterial Blood Oxygen Saturation 96.1, Arterial Blood Base Excess -6.7L, Manan Test Positive 06/12/20 05:00: White Blood Count 9.8, Red Blood Count 4.75, Hemoglobin 14.6, Hematocrit 40.9, Mean Corpuscular Volume 86, Mean Corpuscular Hemoglobin 30.8, Mean Corpuscular Hemoglobin Concent 35.7, Red Cell Distribution Width 14.5, Platelet Count 231, Mean Platelet Volume 7.3, Neutrophils (%) (Auto) 79.3H, Lymphocytes (%) (Auto) 13.4L, Monocytes (%) (Auto) 6.6, Eosinophils (%) (Auto) 0.0, Basophils (%) (Auto) 0.7, Sodium Level 137, Potassium Level 5.1, Chloride Level 103, Carbon Dioxide Level 24, Anion Gap 10, Blood Urea Nitrogen 21H, Creatinine 1.4H, Estimat Glomerular Filtration Rate 49.6, Glucose Level 150H, Calcium Level 7.9L, Total Creatine Kinase 951H Objective: deferred due to possible COVID Accucheck: 157 Robinson Bolton MD Jun 12, 2020 12:40
--- NOTE | 2020-06-12 14:52 | Diagnostic Imaging Report ---
Indication: Post orogastric tube placement Technique: One view of the upper abdomen Comparison: none Findings: Satisfactory endotracheal tube position, endotracheal tube tip projecting approximately 4 cm above the kyung. There is an orogastric tube in place, tip projected at the level of the gastric antrum. There are bilateral peripheral mostly basilar infiltrates. The heart size is normal. There is thoracic scoliotic deformity Impression: Satisfactory endotracheal and orogastric intubation Bilateral infiltrates, likely multifocal pneumonia
--- NOTE | 2020-06-12 15:22 | Diagnostic Imaging Report ---
Indication: Shortness of breath Technique: Grayscale and duplex images of the bilateral lower extremity veins Comparison: None Findings: Bilaterally, grayscale and duplex images demonstrate no evidence of intraluminal thrombus. Normal phasic Doppler waveforms, demonstrating normal augmentation response and no evidence of valvular insufficiency. Greater saphenous vein(s) and tibial veins are patent. Normal compressibility. Impression: Negative for evidence of lower extremity deep venous thrombosis bilaterally
[2020-06-12] MEDS ORDERED: Midazolam 2mg/2ml Inj IVP ONE (19:45)
[2020-06-12] MEDS: cefTRIAXone 1 GM in NS 55 ML IVPB SCH (21:35)
[2020-06-13] VITALS (33 sets, daily range): BP systolic 109–159; BP diastolic 60–84
[2020-06-13] MEDS: propofoL 1,000mg/100ml 100 ML IV SCH ×2 (00:02→05:45)
[2020-06-13] MEDS: fentaNYL 2500mcg/NS 250ml 250 ML IV SCH ×3 (00:03→15:59)
[2020-06-13] MEDS: Midazolam for drip 50 MG in NS 90 ML IV SCH ×2 (02:30→11:32)
[2020-06-13 04:29] LABS: CALCIUM 7.8 MG/DL (8.5-10.1); CREATININE 1.6 MG/DL (0.55-1.30); POTASSIUM 4.9 MMOL/L (3.5-5.1)
[2020-06-13 04:31] LABS: HEMATOCRIT 39.1 % (37.0-47.0); HEMOGLOBIN 13.9 G/DL (12.0-16.0); MEAN CORPUSCULAR VOLUME 88 FL (80-99); PLATELET COUNT 245 K/UL (150-450); RED BLOOD COUNT 4.45 M/UL (4.20-5.40); RED CELL DISTRIBUTION WIDTH 12.7 % (11.6-14.8); WHITE BLOOD COUNT 10.7 K/UL (4.8-10.8)
[2020-06-13] MEDS: Doxycycline Monohydrate 100mg ORAL SCH (09:50)
[2020-06-13] MEDS: Enoxaparin 40mg Inj SUBQ SCH (10:05)
--- NOTE | 2020-06-13 10:46 | Infectious Diseases Prog Note ---
Assessment/Plan Assessment/Plan antibiotics : ceftriaxone, doxycycline A 1. COVID 19 pneumonia on 100 percent Fi O2, saturation 94 percent 2. HIV, T-cell count of 326, viral load undetectable 3. prediabetes 4. respiratory failure P 1. start remdesivir 2. continue dexamethasone day 3 3. d/c ceftriaxone, doxycycline 4. will follow up cultures 5. continue isolation Subjective ROS Limited/Unobtainable: Yes Allergies: Coded Allergies: No Known Allergies (Unverified , 06/11/20) Objective Last 24 Hour Vital Signs Date Time Temp Pulse Resp B/P (MAP) Pulse Ox O2 Delivery O2 Flow Rate FiO2 06/13/20 09:04 94 29 90 06/13/20 09:00 18 Mechanical Ventilator 100 06/13/20 09:00 18 122/75 Mechanical Ventilator 100 06/13/20 09:00 18 122/75 Mechanical Ventilator 100 06/13/20 08:00 18 Mechanical Ventilator 100 06/13/20 08:00 18 122/75 Mechanical Ventilator 100 06/13/20 08:00 18 122/75 Mechanical Ventilator 100 06/13/20 07:41 98.1 95 18 123/74 94 Mechanical Ventilator 15.0 100 06/13/20 07:40 18 123/74 Mechanical Ventilator 100 06/13/20 07:30 18 Mechanical Ventilator 100 06/13/20 07:30 18 123/74 Mechanical Ventilator 100 06/13/20 07:15 18 Mechanical Ventilator 90 06/13/20 07:15 18 114/79 Mechanical Ventilator 90 06/13/20 07:00 20 121/76 Mechanical Ventilator 90 06/13/20 07:00 20 121/76 Mechanical Ventilator 90 06/13/20 07:00 98.1 95 20 121/76 94 Mechanical Ventilator 100 06/13/20 06:30 18 117/72 Mechanical Ventilator 95 06/13/20 06:30 18 114/72 Mechanical Ventilator 90 06/13/20 06:00 21 122/71 Mechanical Ventilator 90 06/13/20 06:00 21 122/71 Mechanical Ventilator 90 06/13/20 06:00 89 18 117/74 95 Mechanical Ventilator 100 06/13/20 05:45 19 119/73 Mechanical Ventilator 100 06/13/20 05:15 18 Mechanical Ventilator 100 06/13/20 05:15 19 119/73 Mechanical Ventilator 100 06/13/20 05:00 18 Mechanical Ventilator 100 06/13/20 05:00 18 118/70 Mechanical Ventilator 100 06/13/20 05:00 18 113/77 Mechanical Ventilator 100 06/13/20 05:00 92 14 113/76 95 Mechanical Ventilator 100 06/13/20 04:00 99.1 86 15 117/70 95 Mechanical Ventilator 100 06/13/20 04:00 17 Mechanical Ventilator 100 06/13/20 04:00 17 121/70 Mechanical Ventilator 95 06/13/20 04:00 17 121/70 Mechanical Ventilator 95 06/13/20 03:00 85 16 124/72 97 Mechanical Ventilator 100 06/13/20 03:00 18 Mechanical Ventilator 100 06/13/20 03:00 16 121/71 Mechanical Ventilator 100 06/13/20 03:00 18 118/74 Mechanical Ventilator 100 06/13/20 02:50 16 116/72 Mechanical Ventilator 100 06/13/20 02:45 18 Mechanical Ventilator 100 06/13/20 02:45 18 118/74 Mechanical Ventilator 100 06/13/20 02:40 18 124/69 Mechanical Ventilator 100 06/13/20 02:32 88 25 100 06/13/20 02:30 20 Mechanical Ventilator 100 06/13/20 02:30 18 117/74 Mechanical Ventilator 100 06/13/20 02:15 19 118/69 Mechanical Ventilator 100 06/13/20 02:00 87 15 126/74 97 Mechanical Ventilator 100 06/13/20 02:00 20 128/72 Mechanical Ventilator 100 06/13/20 02:00 24 128/72 Mechanical Ventilator 100 06/13/20 01:50 26 126/80 Mechanical Ventilator 100 06/13/20 01:45 20 122/72 Mechanical Ventilator 100 06/13/20 01:40 18 120/76 Mechanical Ventilator 100 06/13/20 01:35 20 118/68 Mechanical Ventilator 100 06/13/20 01:30 18 119/70 Mechanical Ventilator 100 06/13/20 01:25 20 120/73 Mechanical Ventilator 22 06/13/20 01:20 19 120/74 Mechanical Ventilator 100 06/13/20 01:15 18 124/70 Mechanical Ventilator 100 06/13/20 01:10 18 118/72 Mechanical Ventilator 100 06/13/20 01:05 20 113/70 Mechanical Ventilator 100 06/13/20 01:00 86 18 122/70 97 Mechanical Ventilator 100 12/16/20 01:00 17 122/75 Mechanical Ventilator 100 06/13/20 01:00 17 122/74 Mechanical Ventilator 100 06/13/20 00:03 17 117/70 Mechanical Ventilator 90 06/13/20 00:02 17 115/70 Mechanical Ventilator 90 06/13/20 00:00 98.5 84 15 118/72 97 Mechanical Ventilator 90 06/12/20 23:00 82 18 117/69 98 Mechanical Ventilator 90 06/12/20 23:00 18 117/69 Mechanical Ventilator 90 06/12/20 23:00 18 117/69 Mechanical Ventilator 90 06/12/20 22:45 94 26 90 06/12/20 22:00 86 17 116/69 95 Mechanical Ventilator 90 06/12/20 22:00 17 116/69 Mechanical Ventilator 90 06/12/20 22:00 17 116/69 Mechanical Ventilator 90 06/12/20 21:00 83 20 115/68 96 Mechanical Ventilator 90 06/12/20 21:00 20 118/68 Mechanical Ventilator 90 06/12/20 21:00 20 118/68 Mechanical Ventilator 90 06/12/20 20:01 22 122/72 Mechanical Ventilator 15.0 90 06/12/20 20:00 97.9 84 18 118/73 98 Mechanical Ventilator 90 06/12/20 20:00 20 122/72 Mechanical Ventilator 90 06/12/20 20:00 20 122/72 Mechanical Ventilator 90 06/12/20 20:00 84 16 Mechanical Ventilator 15.0 90 06/12/20 19:02 88 28 90 06/12/20 19:00 22 119/67 Mechanical Ventilator 90 06/12/20 19:00 22 119/67 Mechanical Ventilator 90 06/12/20 19:00 85 22 119/67 94 Mechanical Ventilator 90 06/12/20 18:00 87 22 136/75 95 Mechanical Ventilator 15.0 80 06/12/20 18:00 22 136/75 Mechanical Ventilator 80 06/12/20 18:00 22 136/75 Mechanical Ventilator 80 06/12/20 17:00 23 127/72 Mechanical Ventilator 80 06/12/20 17:00 23 127/72 Mechanical Ventilator 70 06/12/20 17:00 87 20 127/72 94 Mechanical Ventilator 70 06/12/20 16:16 20 121/74 Mechanical Ventilator 70 06/12/20 16:15 18 121/69 Mechanical Ventilator 70 06/12/20 16:00 97.8 87 20 121/76 95 Mechanical Ventilator 70 06/12/20 16:00 16 121/76 Mechanical Ventilator 70 06/12/20 16:00 16 121/76 Mechanical Ventilator 70 06/12/20 15:30 93 20 70 06/12/20 15:03 18 125/83 Mechanical Ventilator 70 06/12/20 15:00 91 20 122/81 95 Mechanical Ventilator 70 06/12/20 15:00 17 122/81 Mechanical Ventilator 70 06/12/20 15:00 17 122/81 Mechanical Ventilator 70 06/12/20 14:00 20 117/79 Mechanical Ventilator 70 06/12/20 14:00 20 117/79 Mechanical Ventilator 70 06/12/20 14:00 97 20 117/79 95 Mechanical Ventilator 70 06/12/20 13:00 92 21 122/87 95 Mechanical Ventilator 15.0 70 06/12/20 13:00 18 122/7 Mechanical Ventilator 70 06/12/20 13:00 18 122/87 Mechanical Ventilator 70 06/12/20 12:00 15 120/83 Mechanical Ventilator 100 06/12/20 12:00 15 120/83 Mechanical Ventilator 100 06/12/20 12:00 98.0 88 21 120/83 100 Mechanical Ventilator 100 06/12/20 11:00 17 120/85 Mechanical Ventilator 100 06/12/20 11:00 17 120/85 Mechanical Ventilator 100 06/12/20 11:00 88 21 120/85 98 Mechanical Ventilator 100 06/12/20 10:40 81 21 100 Height (Feet): 5 Height (Inches): 6.00 Weight (Pounds): 160 HEENT: other - intubated Microbiology Date/Time Source Procedure Growth Status 06/11/20 06:00 Nasopharynx Coronavirus COVID-19 PCR ([facility]) - Final Complete Laboratory Tests Test 06/12/20 12:40 06/13/20 04:08 06/13/20 08:06 Arterial Blood pH 7.312 (7.350-7.450) 7.332 (7.350-7.450) Arterial Blood Partial Pressure CO2 41.0 mmHg (35.0-45.0) 42.6 mmHg (35.0-45.0) Arterial Blood Partial Pressure O2 233.5 mmHg (75.0-100.0) H 75.5 mmHg (75.0-100.0) Arterial Blood HCO3 20.3 mmol/L (22.0-26.0) L 22.1 mmol/L (22.0-26.0) Arterial Blood Oxygen Saturation 98.4 % (95-100) 94.3 % (95-100) L Arterial Blood Base Excess -5.6 (-2-2) L -3.7 (-2-2) L Manan Test Positive Positive White Blood Count 10.7 K/UL (4.8-10.8) Red Blood Count 4.45 M/UL (4.20-5.40) Hemoglobin 13.9 G/DL (12.0-16.0) Hematocrit 39.1 % (37.0-47.0) Mean Corpuscular Volume 88 FL (80-99) Mean Corpuscular Hemoglobin 31.3 PG (27.0-31.0) H Mean Corpuscular Hemoglobin Concent 35.7 G/DL (32.0-36.0) Red Cell Distribution Width 12.7 % (11.6-14.8) Platelet Count 245 K/UL (150-450) Mean Platelet Volume 7.3 FL (6.5-10.1) Neutrophils (%) (Auto) % (45.0-75.0) Lymphocytes (%) (Auto) % (20.0-45.0) Monocytes (%) (Auto) % (1.0-10.0) Eosinophils (%) (Auto) % (0.0-3.0) Basophils (%) (Auto) % (0.0-2.0) Sodium Level 140 MMOL/L (136-145) Potassium Level 4.9 MMOL/L (3.5-5.1) Chloride Level 108 MMOL/L (98-107) H Carbon Dioxide Level 22 MMOL/L (21-32) Anion Gap 10 mmol/L (5-15) Blood Urea Nitrogen 30 mg/dL (7-18) H Creatinine 1.6 MG/DL (0.55-1.30) H Estimat Glomerular Filtration Rate 42.4 mL/min (>60) Glucose Level 146 MG/DL (74-106) H Calcium Level 7.8 MG/DL (8.5-10.1) L Triglycerides Level 319 MG/DL (30-150) H Current Medications Medications (Trade) Dose Ordered Sig/Candis Route PRN Reason Start Time Stop Time Status Last Admin Dose Admin Acetaminophen (Tylenol) 650 mg Q4H PRN ORAL fever 06/11/20 19:30 07/11/20 19:29 Ceftriaxone Sodium 1 gm/ Sodium Chloride 55 ml @ 110 mls/hr Q24H IVPB 06/11/20 22:00 06/17/20 22:29 06/12/20 21:35 Dexamethasone Sodium Phosphate (Decadron 4mg/ml vial) 6 mg DAILY IVP 06/12/20 09:00 06/20/20 09:01 06/13/20 09:50 Doxycycline Monohydrate (Doxycycline Monohydrate) 100 mg BID ORAL 06/11/20 21:30 06/18/20 09:01 06/13/20 09:50 Enoxaparin Sodium (Lovenox) 40 mg DAILY SUBQ 06/12/20 09:00 09/10/20 08:59 06/13/20 10:05 Fentanyl Citrate 250 ml @ 1 mls/hr Q24H IV 06/12/20 16:30 06/14/20 16:29 06/13/20 07:40 Midazolam HCl 50 mg/Sodium Chloride 100 ml @ 0 mls/hr Q24H IV 06/13/20 02:15 06/15/20 02:13 06/13/20 02:30 Propofol 100 ml @ 2.177 mls/ hr Q12H IV 06/12/20 15:00 06/14/20 14:49 06/13/20 05:45 Sodium Chloride 1,000 ml @ 100 mls/hr Q10H IV 06/11/20 19:30 07/11/20 19:29 06/13/20 02:31 Kyle Calderon MD Jun 13, 2020 10:46
--- NOTE | 2020-06-13 11:23 | Critical Care Progress Note ---
Assessment/Plan Assessment/Plan IMPRESSION: 1. Pneumonia, COVID. 2. Elevated creatine kinase, mild rhabdo. 3. Elevated creatinine with acute renal failure. 4. HIV, currently nondetectable. 5. metabolic acidosis 6. hypoxemia. 7. Acute hypoxemic respiratory failure RECOMMENDATION: ID follow up. IV hydration. Empiric antibiotics as is and Decadron. DVT prophylaxis. venous ultrasound to rule out DVT. Monitor clinically for changes. dietary and NGT feeds supportive care sedation will hope to wean soon medications/laboratory data/nursing notes/ICU care reviewed in detail note reviewed and edited care discussed with RN and RT ICU time spent >40 minutes Critical Care - Subjective Interval Events: on vent moved to ICU sedated Condition: critical EKG Rhythm: Sinus Rhythm Residuals: minimal Tube Feeding Tolerated: yes I&O: Intake and Output 06/12/20 06/13/20 19:00 07:00 Intake Total 1643.308 ml 1596.753 ml Output Total 1600 ml Balance 43.308 ml 1596.753 ml Intake IV Total 1643.308 ml 1596.753 ml Output Urine Total 1600 ml Critical Care - Objective ET-Tube: 7.0 ET Position: 24 Last 24 Hour Vital Signs Date Time Temp Pulse Resp B/P (MAP) Pulse Ox O2 Delivery O2 Flow Rate FiO2 06/13/20 11:00 26 Mechanical Ventilator 100 06/13/20 11:00 26 133/78 Mechanical Ventilator 100 06/13/20 10:00 24 Mechanical Ventilator 100 06/13/20 10:00 24 146/70 Mechanical Ventilator 100 06/13/20 09:04 94 29 90 06/13/20 09:00 18 Mechanical Ventilator 100 06/13/20 09:00 18 122/75 Mechanical Ventilator 100 06/13/20 09:00 18 122/75 Mechanical Ventilator 100 06/13/20 08:00 18 Mechanical Ventilator 100 06/13/20 08:00 18 122/75 Mechanical Ventilator 100 06/13/20 08:00 18 122/75 Mechanical Ventilator 100 06/13/20 07:41 98.1 95 18 123/74 94 Mechanical Ventilator 15.0 100 06/13/20 07:40 18 123/74 Mechanical Ventilator 100 06/13/20 07:30 18 Mechanical Ventilator 100 06/13/20 07:30 18 123/74 Mechanical Ventilator 100 06/13/20 07:15 18 Mechanical Ventilator 90 06/13/20 07:15 18 114/79 Mechanical Ventilator 90 06/13/20 07:00 20 121/76 Mechanical Ventilator 90 06/13/20 07:00 20 121/76 Mechanical Ventilator 90 06/13/20 07:00 98.1 95 20 121/76 94 Mechanical Ventilator 100 06/13/20 06:30 18 117/72 Mechanical Ventilator 95 06/13/20 06:30 18 114/72 Mechanical Ventilator 90 06/13/20 06:00 21 122/71 Mechanical Ventilator 90 06/13/20 06:00 21 122/71 Mechanical Ventilator 90 06/13/20 06:00 89 18 117/74 95 Mechanical Ventilator 100 06/13/20 05:45 19 119/73 Mechanical Ventilator 100 06/13/20 05:15 18 Mechanical Ventilator 100 06/13/20 05:15 19 119/73 Mechanical Ventilator 100 06/13/20 05:00 18 Mechanical Ventilator 100 06/13/20 05:00 18 118/70 Mechanical Ventilator 100 06/13/20 05:00 18 113/77 Mechanical Ventilator 100 06/13/20 05:00 92 14 113/76 95 Mechanical Ventilator 100 06/13/20 04:00 99.1 86 15 117/70 95 Mechanical Ventilator 100 06/13/20 04:00 17 Mechanical Ventilator 100 06/13/20 04:00 17 121/70 Mechanical Ventilator 95 06/13/20 04:00 17 121/70 Mechanical Ventilator 95 06/13/20 03:00 85 16 124/72 97 Mechanical Ventilator 100 06/13/20 03:00 18 Mechanical Ventilator 100 06/13/20 03:00 16 121/71 Mechanical Ventilator 100 06/13/20 03:00 18 118/74 Mechanical Ventilator 100 06/13/20 02:50 16 116/72 Mechanical Ventilator 100 06/13/20 02:45 18 Mechanical Ventilator 100 06/13/20 02:45 18 118/74 Mechanical Ventilator 100 06/13/20 02:40 18 124/69 Mechanical Ventilator 100 06/13/20 02:32 88 25 100 06/13/20 02:30 20 Mechanical Ventilator 100 06/13/20 02:30 18 117/74 Mechanical Ventilator 100 06/13/20 02:15 19 118/69 Mechanical Ventilator 100 06/13/20 02:00 87 15 126/74 97 Mechanical Ventilator 100 06/13/20 02:00 20 128/72 Mechanical Ventilator 100 06/13/20 02:00 24 128/72 Mechanical Ventilator 100 06/13/20 01:50 26 126/80 Mechanical Ventilator 100 06/13/20 01:45 20 122/72 Mechanical Ventilator 100 06/13/20 01:40 18 120/76 Mechanical Ventilator 100 06/13/20 01:35 20 118/68 Mechanical Ventilator 100 06/13/20 01:30 18 119/70 Mechanical Ventilator 100 06/13/20 01:25 20 120/73 Mechanical Ventilator 22 06/13/20 01:20 19 120/74 Mechanical Ventilator 100 06/13/20 01:15 18 124/70 Mechanical Ventilator 100 06/13/20 01:10 18 118/72 Mechanical Ventilator 100 06/13/20 01:05 20 113/70 Mechanical Ventilator 100 06/13/20 01:00 86 18 122/70 97 Mechanical Ventilator 100 06/13/20 01:00 17 122/75 Mechanical Ventilator 100 06/13/20 01:00 17 122/74 Mechanical Ventilator 100 06/13/20 00:03 17 117/70 Mechanical Ventilator 90 06/13/20 00:02 17 115/70 Mechanical Ventilator 90 06/13/20 00:00 98.5 84 15 118/72 97 Mechanical Ventilator 90 06/12/20 23:00 82 18 117/69 98 Mechanical Ventilator 90 06/12/20 23:00 18 117/69 Mechanical Ventilator 90 06/12/20 23:00 18 117/69 Mechanical Ventilator 90 06/12/20 22:45 94 26 90 06/12/20 22:00 86 17 116/69 95 Mechanical Ventilator 90 06/12/20 22:00 17 116/69 Mechanical Ventilator 90 06/12/20 22:00 17 116/69 Mechanical Ventilator 90 06/12/20 21:00 83 20 115/68 96 Mechanical Ventilator 90 06/12/20 21:00 20 118/68 Mechanical Ventilator 90 06/12/20 21:00 20 118/68 Mechanical Ventilator 90 06/12/20 20:01 22 122/72 Mechanical Ventilator 15.0 90 06/12/20 20:00 97.9 84 18 118/73 98 Mechanical Ventilator 90 06/12/20 20:00 20 122/72 Mechanical Ventilator 90 06/12/20 20:00 20 122/72 Mechanical Ventilator 90 06/12/20 20:00 84 16 Mechanical Ventilator 15.0 90 06/12/20 19:02 88 28 90 06/12/20 19:00 22 119/67 Mechanical Ventilator 90 06/12/20 19:00 22 119/67 Mechanical Ventilator 90 06/12/20 19:00 85 22 119/67 94 Mechanical Ventilator 90 06/12/20 18:00 87 22 136/75 95 Mechanical Ventilator 15.0 80 06/12/20 18:00 22 136/75 Mechanical Ventilator 80 06/12/20 18:00 22 136/75 Mechanical Ventilator 80 06/12/20 17:00 23 127/72 Mechanical Ventilator 80 06/12/20 17:00 23 127/72 Mechanical Ventilator 70 06/12/20 17:00 87 20 127/72 94 Mechanical Ventilator 70 06/12/20 16:16 20 121/74 Mechanical Ventilator 70 06/12/20 16:15 18 121/69 Mechanical Ventilator 70 06/12/20 16:00 97.8 87 20 121/76 95 Mechanical Ventilator 70 06/12/20 16:00 16 121/76 Mechanical Ventilator 70 06/12/20 16:00 16 121/76 Mechanical Ventilator 70 06/12/20 15:30 93 20 70 06/12/20 15:03 18 125/83 Mechanical Ventilator 70 06/12/20 15:00 91 20 122/81 95 Mechanical Ventilator 70 06/12/20 15:00 17 122/81 Mechanical Ventilator 70 06/12/20 15:00 17 122/81 Mechanical Ventilator 70 06/12/20 14:00 20 117/79 Mechanical Ventilator 70 06/12/20 14:00 20 117/79 Mechanical Ventilator 70 06/12/20 14:00 97 20 117/79 95 Mechanical Ventilator 70 06/12/20 13:00 92 21 122/87 95 Mechanical Ventilator 15.0 70 06/12/20 13:00 18 122/7 Mechanical Ventilator 70 06/12/20 13:00 18 122/87 Mechanical Ventilator 70 06/12/20 12:00 15 120/83 Mechanical Ventilator 100 06/12/20 12:00 15 120/83 Mechanical Ventilator 100 06/12/20 12:00 98.0 88 21 120/83 100 Mechanical Ventilator 100 Labs: Laboratory Tests 06/12/20 12:40: Arterial Blood pH 7.312L, Arterial Blood Partial Pressure CO2 41.0, Arterial Blood Partial Pressure O2 233.5H, Arterial Blood HCO3 20.3L, Arterial Blood Oxygen Saturation 98.4, Arterial Blood Base Excess -5.6L, Manan Test Positive 06/13/20 04:06: Total Bilirubin [Pending], Direct Bilirubin [Pending], Aspartate Amino Transf (AST/SGOT) [Pending], Alanine Aminotransferase (ALT/SGPT) [Pending], Alkaline Phosphatase [Pending], Total Protein [Pending], Albumin [Pending] 06/13/20 04:08: White Blood Count 10.7, Red Blood Count 4.45, Hemoglobin 13.9, Hematocrit 39.1, Mean Corpuscular Volume 88, Mean Corpuscular Hemoglobin 31.3H, Mean Corpuscular Hemoglobin Concent 35.7, Red Cell Distribution Width 12.7, Platelet Count 245, Mean Platelet Volume 7.3, Neutrophils (%) (Auto) , Lymphocytes (%) (Auto) , Monocytes (%) (Auto) , Eosinophils (%) (Auto) , Basophils (%) (Auto) , Sodium Level 140, Potassium Level 4.9, Chloride Level 108H, Carbon Dioxide Level 22, Anion Gap 10, Blood Urea Nitrogen 30H, Creatinine 1.6H, Estimat Glomerular Filtration Rate 42.4, Glucose Level 146H, Calcium Level 7.8L, Triglycerides Level 319H 06/13/20 08:06: Arterial Blood pH 7.332L, Arterial Blood Partial Pressure CO2 42.6, Arterial Blood Partial Pressure O2 75.5, Arterial Blood HCO3 22.1, Arterial Blood Oxygen Saturation 94.3L, Arterial Blood Base Excess -3.7L, Manan Test Positive Objective: deferred due to COVID Micro: Microbiology Date/Time Source Procedure Growth Status 06/11/20 06:00 Nasopharynx Coronavirus COVID-19 PCR ([facility]) - Final Complete Accucheck: 157 Robinson Bolton MD Jun 13, 2020 11:23
[2020-06-13 11:30] LABS: ALANINE AMINOTRANSFERASE 47 U/L (12-78); ALBUMIN 2.9 G/DL (3.4-5.0); ALKALINE PHOSPHATASE 68 U/L (46-116); ASPARTATE AMINO TRANSFERASE 97 U/L (15-37); BILIRUBIN,DIRECT < 0.1 MG/DL (0.0-0.3); BILIRUBIN,TOTAL 0.4 MG/DL (0.2-1.0)
--- NOTE | 2020-06-13 13:42 | Diagnostic Imaging Report ---
Indication: Shortness of breath Technique: One view of the chest Comparison: 06/11/2020 Findings: Interim placement of an orogastric tube, tip of which projects beyond the edge of the image and probably well within the stomach. Stable satisfactory position of endotracheal tube. Bilateral basilar infiltrates versus edema persists. Likely left pleural effusion persists. Cardiomegaly persists. Impression: Satisfactory orogastric intubation Otherwise stable findings as described
[2020-06-13] MEDS: MIDAZOLAM FOR DRIP IV SCH ×2 (14:21→20:33)
[2020-06-13] MEDS: NS IV SCH ×2 (14:21→20:33)
[2020-06-13] MEDS ORDERED: Loading Dose:Remdesivir 200mg/NS 210ml IV SCH ×2 (16:00)
--- NOTE | 2020-06-13 17:26 | General Progress Note ---
Subjective ROS Limited/Unobtainable: Yes Constitutional: Reports: malaise, weakness HEENT: Reports: no symptoms Cardiovascular: Reports: no symptoms Respiratory: Reports: no symptoms Gastrointestinal/Abdominal: Reports: no symptoms Genitourinary: Reports: no symptoms Neurologic/Psychiatric: Reports: no symptoms Endocrine: Reports: no symptoms Hematologic/Lymphatic: Reports: no symptoms Allergies: Coded Allergies: No Known Allergies (Unverified , 06/11/20) All Systems: reviewed and negative except above Subjective remains intubated. on the vent. sedated. no distress. covid pcr + Objective Last 24 Hour Vital Signs Date Time Temp Pulse Resp B/P (MAP) Pulse Ox O2 Delivery O2 Flow Rate FiO2 06/13/20 17:00 100 22 120/65 (83) 93 06/13/20 16:30 98 21 123/71 (88) 94 06/13/20 16:30 100 24 123/71 (88) 92 06/13/20 16:00 105 06/13/20 16:00 102 21 126/71 (89) 92 06/13/20 16:00 Mechanical Ventilator 06/13/20 16:00 24 Mechanical Ventilator 100 06/13/20 16:00 100.5 97 21 126/71 (89) 93 06/13/20 16:00 95 06/13/20 15:59 24 119/69 Mechanical Ventilator 15.0 100 06/13/20 15:58 24 119/69 Mechanical Ventilator 100 06/13/20 15:00 24 Mechanical Ventilator 100 06/13/20 15:00 22 119/69 Mechanical Ventilator 100 06/13/20 15:00 93 20 121/71 (88) 94 06/13/20 14:21 22 Mechanical Ventilator 100 06/13/20 14:00 94 23 118/69 (85) 93 06/13/20 14:00 22 Mechanical Ventilator 100 06/13/20 14:00 22 140/72 Mechanical Ventilator 100 06/13/20 13:30 94 23 127/71 (89) 94 06/13/20 13:00 22 Mechanical Ventilator 100 06/13/20 13:00 22 140/64 Mechanical Ventilator 100 06/13/20 13:00 96 23 123/71 (88) 93 06/13/20 12:30 104 27 133/67 (89) 93 06/13/20 12:00 105 06/13/20 12:00 Mechanical Ventilator 12/16/20 12:00 26 Non-Rebreather 100 06/13/20 12:00 22 Mechanical Ventilator 100 06/13/20 12:00 26 Non-Rebreather 100 06/13/20 12:00 26 Non-Rebreather 100 06/13/20 12:00 26 Non-Rebreather 100 06/13/20 12:00 22 140/75 Mechanical Ventilator 100 06/13/20 12:00 100.3 101 27 142/84 (103) 94 06/13/20 11:32 26 Mechanical Ventilator 100 06/13/20 11:05 101 26 90 06/13/20 11:00 107 35 159/81 (107) 94 06/13/20 11:00 26 Mechanical Ventilator 100 06/13/20 11:00 26 133/78 Mechanical Ventilator 100 06/13/20 10:04 Mechanical Ventilator 06/13/20 10:00 102 35 150/80 (103) 94 06/13/20 10:00 24 Mechanical Ventilator 100 06/13/20 10:00 24 146/70 Mechanical Ventilator 100 06/13/20 10:00 100 06/13/20 09:30 91 06/13/20 09:04 94 29 90 06/13/20 09:04 94 29 94 Mechanical Ventilator 90 06/13/20 09:00 18 Mechanical Ventilator 100 06/13/20 09:00 18 122/75 Mechanical Ventilator 100 06/13/20 09:00 18 122/75 Mechanical Ventilator 100 06/13/20 09:00 100.0 100 35 150/80 (103) 96 06/13/20 08:40 98.1 95 18 123/74 97 Mechanical Ventilator 15.0 100 06/13/20 08:00 18 Mechanical Ventilator 100 06/13/20 08:00 18 122/75 Mechanical Ventilator 100 06/13/20 08:00 18 122/75 Mechanical Ventilator 100 06/13/20 07:41 98.1 95 18 123/74 94 Mechanical Ventilator 15.0 100 06/13/20 07:40 18 123/74 Mechanical Ventilator 100 06/13/20 07:30 18 Mechanical Ventilator 100 06/13/20 07:30 18 123/74 Mechanical Ventilator 100 06/13/20 07:15 18 Mechanical Ventilator 90 06/13/20 07:15 18 114/79 Mechanical Ventilator 90 06/13/20 07:00 20 121/76 Mechanical Ventilator 90 06/13/20 07:00 20 121/76 Mechanical Ventilator 90 06/13/20 07:00 98.1 95 20 121/76 94 Mechanical Ventilator 100 06/13/20 06:30 18 117/72 Mechanical Ventilator 95 06/13/20 06:30 18 114/72 Mechanical Ventilator 90 06/13/20 06:00 21 122/71 Mechanical Ventilator 90 06/13/20 06:00 21 122/71 Mechanical Ventilator 90 06/13/20 06:00 89 18 117/74 95 Mechanical Ventilator 100 06/13/20 05:45 19 119/73 Mechanical Ventilator 100 06/13/20 05:15 18 Mechanical Ventilator 100 06/13/20 05:15 19 119/73 Mechanical Ventilator 100 06/13/20 05:00 18 Mechanical Ventilator 100 06/13/20 05:00 18 118/70 Mechanical Ventilator 100 06/13/20 05:00 18 113/77 Mechanical Ventilator 100 06/13/20 05:00 92 14 113/76 95 Mechanical Ventilator 100 06/13/20 04:00 99.1 86 15 117/70 95 Mechanical Ventilator 100 06/13/20 04:00 17 Mechanical Ventilator 100 06/13/20 04:00 17 121/70 Mechanical Ventilator 95 06/13/20 04:00 17 121/70 Mechanical Ventilator 95 06/13/20 03:00 85 16 124/72 97 Mechanical Ventilator 100 06/13/20 03:00 18 Mechanical Ventilator 100 06/13/20 03:00 16 121/71 Mechanical Ventilator 100 06/13/20 03:00 18 118/74 Mechanical Ventilator 100 06/13/20 02:50 16 116/72 Mechanical Ventilator 100 06/13/20 02:45 18 Mechanical Ventilator 100 06/13/20 02:45 18 118/74 Mechanical Ventilator 100 06/13/20 02:40 18 124/69 Mechanical Ventilator 100 06/13/20 02:32 88 25 100 06/13/20 02:30 20 Mechanical Ventilator 100 06/13/20 02:30 18 117/74 Mechanical Ventilator 100 06/13/20 02:15 19 118/69 Mechanical Ventilator 100 06/13/20 02:00 87 15 126/74 97 Mechanical Ventilator 100 06/13/20 02:00 20 128/72 Mechanical Ventilator 100 06/13/20 02:00 24 128/72 Mechanical Ventilator 100 06/13/20 01:50 26 126/80 Mechanical Ventilator 100 06/13/20 01:45 20 122/72 Mechanical Ventilator 100 06/13/20 01:40 18 120/76 Mechanical Ventilator 100 06/13/20 01:35 20 118/68 Mechanical Ventilator 100 06/13/20 01:30 18 119/70 Mechanical Ventilator 100 06/13/20 01:25 20 120/73 Mechanical Ventilator 22 06/13/20 01:20 19 120/74 Mechanical Ventilator 100 06/13/20 01:15 18 124/70 Mechanical Ventilator 100 06/13/20 01:10 18 118/72 Mechanical Ventilator 100 06/13/20 01:05 20 113/70 Mechanical Ventilator 100 06/13/20 01:00 86 18 122/70 97 Mechanical Ventilator 100 06/13/20 01:00 17 122/75 Mechanical Ventilator 100 06/13/20 01:00 17 122/74 Mechanical Ventilator 100 06/13/20 00:03 17 117/70 Mechanical Ventilator 90 06/13/20 00:02 17 115/70 Mechanical Ventilator 90 06/13/20 00:00 98.5 84 15 118/72 97 Mechanical Ventilator 90 06/12/20 23:00 82 18 117/69 98 Mechanical Ventilator 90 06/12/20 23:00 18 117/69 Mechanical Ventilator 90 06/12/20 23:00 18 117/69 Mechanical Ventilator 90 06/12/20 22:45 94 26 90 06/12/20 22:00 86 17 116/69 95 Mechanical Ventilator 90 06/12/20 22:00 17 116/69 Mechanical Ventilator 90 06/12/20 22:00 17 116/69 Mechanical Ventilator 90 06/12/20 21:00 83 20 115/68 96 Mechanical Ventilator 90 06/12/20 21:00 20 118/68 Mechanical Ventilator 90 06/12/20 21:00 20 118/68 Mechanical Ventilator 90 06/12/20 20:01 22 122/72 Mechanical Ventilator 15.0 90 06/12/20 20:00 97.9 84 18 118/73 98 Mechanical Ventilator 90 06/12/20 20:00 20 122/72 Mechanical Ventilator 90 06/12/20 20:00 20 122/72 Mechanical Ventilator 90 06/12/20 20:00 84 16 Mechanical Ventilator 15.0 90 06/12/20 19:02 88 28 90 06/12/20 19:00 22 119/67 Mechanical Ventilator 90 06/12/20 19:00 22 119/67 Mechanical Ventilator 90 06/12/20 19:00 85 22 119/67 94 Mechanical Ventilator 90 06/12/20 18:00 87 22 136/75 95 Mechanical Ventilator 15.0 80 06/12/20 18:00 22 136/75 Mechanical Ventilator 80 06/12/20 18:00 22 136/75 Mechanical Ventilator 80 Intake and Output 06/12/20 06/13/20 19:00 07:00 Intake Total 1643.308 ml 1596.753 ml Output Total 1600 ml Balance 43.308 ml 1596.753 ml Intake IV Total 1643.308 ml 1596.753 ml Output Urine Total 1600 ml Laboratory Tests 06/13/20 04:06: Total Bilirubin 0.4, Direct Bilirubin < 0.1, Aspartate Amino Transf (AST/SGOT) 97H, Alanine Aminotransferase (ALT/SGPT) 47, Alkaline Phosphatase 68, Total Prot ein 8.2, Albumin 2.9L 06/13/20 04:08: White Blood Count 10.7, Red Blood Count 4.45, Hemoglobin 13.9, Hematocrit 39.1, Mean Corpuscular Volume 88, Mean Corpuscular Hemoglobin 31.3H, Mean Corpuscular Hemoglobin Concent 35.7, Red Cell Distribution Width 12.7, Platelet Count 245, Mean Platelet Volume 7.3, Neutrophils (%) (Auto) , Lymphocytes (%) (Auto) , Monocytes (%) (Auto) , Eosinophils (%) (Auto) , Basophils (%) (Auto) , Sodium Level 140, Potassium Level 4.9, Chloride Level 108H, Carbon Dioxide Level 22, Anion Gap 10, Blood Urea Nitrogen 30H, Creatinine 1.6H, Estimat Glomerular Filtration Rate 42.4, Glucose Level 146H, Calcium Level 7.8L, Triglycerides Level 319H 06/13/20 08:06: Arterial Blood pH 7.332L, Arterial Blood Partial Pressure CO2 42.6, Arterial Blood Partial Pressure O2 75.5, Arterial Blood HCO3 22.1, Arterial Blood Oxygen Saturation 94.3L, Arterial Blood Base Excess -3.7L, Manan Test Positive Height (Feet): 5 Height (Inches): 6.00 Weight (Pounds): 160 General Appearance: WD/WN, alert EENT: normal ENT inspection Neck: supple Cardiovascular: normal rate, regular rhythm Respiratory/Chest: chest wall non-tender, lungs clear, normal breath sounds Abdomen: normal bowel sounds, non tender, soft, no organomegaly Pelvis: normal external exam Edema: no edema noted Arm (L), no edema noted Arm (R) Assessment/Plan Assessment/Plan: a/ resp failure pna due to covid hiv arf rhabdo p/ vent resp rx follow up covid abx per id monitor ck dvt/stress ulcer prophylaxis check venous duplex Karel Key MD Jun 13, 2020 17:26
[2020-06-14] VITALS (39 sets, daily range): BP systolic 119–180; BP diastolic 59–102
[2020-06-14] MEDS: fentaNYL 2500mcg/NS 250ml 250 ML IV SCH ×3 (04:11→19:29)
[2020-06-14 05:23] LABS: HEMATOCRIT 39.3 % (37.0-47.0); HEMOGLOBIN 13.7 G/DL (12.0-16.0); MEAN CORPUSCULAR VOLUME 89 FL (80-99); PLATELET COUNT 266 K/UL (150-450); RED BLOOD COUNT 4.41 M/UL (4.20-5.40); WHITE BLOOD COUNT 14.2 K/UL (4.8-10.8)
[2020-06-14 05:51] LABS: ALBUMIN 2.5 G/DL (3.4-5.0); ALBUMIN/GLOBULIN RATIO 0.5 (1.0-2.7); BILIRUBIN,DIRECT 0.2 MG/DL (0.0-0.3); BILIRUBIN,TOTAL 0.6 MG/DL (0.2-1.0); CALCIUM 8.2 MG/DL (8.5-10.1); CREATININE 1.5 MG/DL (0.55-1.30); POTASSIUM 4.8 MMOL/L (3.5-5.1)
[2020-06-14] MEDS: NS IV SCH ×2 (06:12→23:00)
[2020-06-14] MEDS: MIDAZOLAM FOR DRIP IV SCH ×2 (06:12→23:00)
--- NOTE | 2020-06-14 07:36 | General Progress Note ---
Subjective ROS Limited/Unobtainable: Yes Constitutional: Reports: malaise, weakness HEENT: Reports: no symptoms Cardiovascular: Reports: no symptoms Respiratory: Reports: no symptoms Gastrointestinal/Abdominal: Reports: no symptoms Genitourinary: Reports: no symptoms Neurologic/Psychiatric: Reports: pre-existing deficit Endocrine: Reports: no symptoms Hematologic/Lymphatic: Reports: no symptoms Allergies: Coded Allergies: No Known Allergies (Unverified , 06/11/20) All Systems: reviewed and negative except above Subjective remains intubated. on the vent. sedated. no distress. covid pcr + +fevers. 92% on 90%fi02 Objective Last 24 Hour Vital Signs Date Time Temp Pulse Resp B/P (MAP) Pulse Ox O2 Delivery O2 Flow Rate FiO2 06/14/20 07:00 111 25 136/79 (98) 92 06/14/20 06:30 110 16 06/14/20 06:30 111 24 139/78 (98) 91 06/14/20 06:12 16 Mechanical Ventilator 90 06/14/20 06:00 16 Mechanical Ventilator 90 06/14/20 06:00 16 139/78 Mechanical Ventilator 90 06/14/20 06:00 107 25 147/80 (102) 92 06/14/20 05:30 104 25 142/76 (98) 93 06/14/20 05:00 100 23 148/75 (99) 93 06/14/20 05:00 16 Mechanical Ventilator 90 06/14/20 05:00 16 142/76 Mechanical Ventilator 90 06/14/20 04:30 96 24 132/76 (94) 92 06/14/20 04:11 16 131/71 90 06/14/20 04:00 99.5 92 25 131/71 (91) 91 06/14/20 04:00 16 Mechanical Ventilator 90 06/14/20 04:00 16 141/62 Mechanical Ventilator 90 06/14/20 04:00 91 06/14/20 04:00 Mechanical Ventilator 06/14/20 03:30 89 22 119/79 (92) 91 06/14/20 03:10 68 23 90 06/14/20 03:00 16 Mechanical Ventilator 90 06/14/20 03:00 16 128/78 Mechanical Ventilator 90 06/14/20 03:00 91 24 128/78 (95) 91 06/14/20 02:30 90 25 135/82 (99) 90 06/14/20 02:00 83 20 127/72 (90) 94 06/14/20 02:00 16 Mechanical Ventilator 90 06/14/20 02:00 16 127/74 Mechanical Ventilator 90 06/14/20 01:30 83 19 124/75 (91) 93 06/14/20 01:00 16 Mechanical Ventilator 90 06/14/20 01:00 16 128/74 Mechanical Ventilator 90 06/14/20 01:00 82 21 128/74 (92) 93 06/14/20 00:30 87 20 124/75 (91) 93 06/14/20 00:00 99 06/14/20 00:00 16 Mechanical Ventilator 90 06/14/20 00:00 16 123/69 Mechanical Ventilator 90 06/14/20 00:00 99.7 87 19 123/69 (87) 92 06/14/20 00:00 Mechanical Ventilator 06/13/20 23:30 87 17 109/69 (82) 94 06/13/20 23:30 108 21 90 06/13/20 23:00 89 17 123/65 (84) 94 06/13/20 23:00 16 Mechanical Ventilator 90 06/13/20 23:00 16 Mechanical Ventilator 90 06/13/20 23:00 16 123/65 Mechanical Ventilator 90 06/13/20 23:00 16 117/81 Mechanical Ventilator 90 06/13/20 22:45 16 Mechanical Ventilator 90 06/13/20 22:45 16 115/75 Mechanical Ventilator 90 06/13/20 22:30 87 17 122/70 (87) 95 06/13/20 22:00 16 Mechanical Ventilator 90 06/13/20 22:00 16 116/86 Mechanical Ventilator 90 06/13/20 22:00 100.0 95 17 119/73 (88) 94 06/13/20 21:45 95 18 125/60 (81) 94 06/13/20 21:45 16 Mechanical Ventilator 90 06/13/20 21:45 16 125/60 Mechanical Ventilator 90 06/13/20 21:30 95 18 125/68 (87) 93 06/13/20 21:03 101.2 06/13/20 21:00 23 Mechanical Ventilator 90 06/13/20 21:00 23 131/70 Mechanical Ventilator 90 06/13/20 21:00 100 21 130/68 (88) 92 06/13/20 20:33 18 Mechanical Ventilator 90 06/13/20 20:30 101.7 97 19 128/69 (88) 92 06/13/20 20:00 100 23 137/70 (92) 92 06/13/20 20:00 23 Mechanical Ventilator 90 06/13/20 20:00 23 137/70 Mechanical Ventilator 90 06/13/20 20:00 97 20 20:00 Mechanical Ventilator 06/13/20 19:30 97 16 124/69 (87) 95 06/13/20 19:00 110 20 90 06/13/20 19:00 101 20 122/72 (89) 95 06/13/20 19:00 22 Mechanical Ventilator 90 06/13/20 19:00 22 140/62 Mechanical Ventilator 90 06/13/20 18:00 99.7 102 20 118/67 (84) 92 06/13/20 18:00 24 Mechanical Ventilator 100 06/13/20 18:00 24 140/70 Mechanical Ventilator 100 06/13/20 17:00 24 Mechanical Ventilator 100 06/13/20 17:00 24 140/72 Mechanical Ventilator 100 06/13/20 17:00 100 22 120/65 (83) 93 06/13/20 16:52 99.7 06/13/20 16:30 98 21 123/71 (88) 94 06/13/20 16:30 100 24 123/71 (88) 92 06/13/20 16:00 105 06/13/20 16:00 102 21 126/71 (89) 92 06/13/20 16:00 Mechanical Ventilator 06/13/20 16:00 24 Mechanical Ventilator 100 06/13/20 16:00 100.5 97 21 126/71 (89) 93 06/13/20 16:00 95 06/13/20 15:59 24 119/69 Mechanical Ventilator 15.0 100 06/13/20 15:58 24 119/69 Mechanical Ventilator 100 06/13/20 15:00 24 Mechanical Ventilator 100 06/13/20 15:00 22 119/69 Mechanical Ventilator 100 06/13/20 15:00 93 20 121/71 (88) 94 06/13/20 14:55 99 21 90 06/13/20 14:21 22 Mechanical Ventilator 100 06/13/20 14:21 22 Mechanical Ventilator 100 12/16/20 14:00 94 23 118/69 (85) 93 06/13/20 14:00 22 Mechanical Ventilator 100 06/13/20 14:00 22 140/72 Mechanical Ventilator 100 06/13/20 13:30 94 23 127/71 (89) 94 06/13/20 13:00 22 Mechanical Ventilator 100 06/13/20 13:00 22 140/64 Mechanical Ventilator 100 06/13/20 13:00 96 23 123/71 (88) 93 06/13/20 12:30 104 27 133/67 (89) 93 06/13/20 12:00 105 06/13/20 12:00 Mechanical Ventilator 06/13/20 12:00 26 Non-Rebreather 100 06/13/20 12:00 22 Mechanical Ventilator 100 06/13/20 12:00 26 Non-Rebreather 100 06/13/20 12:00 26 Non-Rebreather 100 06/13/20 12:00 26 Non-Rebreather 100 06/13/20 12:00 22 140/75 Mechanical Ventilator 100 06/13/20 12:00 100.3 101 27 142/84 (103) 94 06/13/20 11:32 26 Mechanical Ventilator 100 06/13/20 11:05 101 26 90 06/13/20 11:00 107 35 159/81 (107) 94 06/13/20 11:00 26 Mechanical Ventilator 100 06/13/20 11:00 26 133/78 Mechanical Ventilator 100 06/13/20 10:04 Mechanical Ventilator 06/13/20 10:00 102 35 150/80 (103) 94 06/13/20 10:00 24 Mechanical Ventilator 100 06/13/20 10:00 24 146/70 Mechanical Ventilator 100 06/13/20 10:00 100 06/13/20 09:30 91 06/13/20 09:04 94 29 90 06/13/20 09:04 94 29 94 Mechanical Ventilator 90 06/13/20 09:00 18 Mechanical Ventilator 100 06/13/20 09:00 18 122/75 Mechanical Ventilator 100 06/13/20 09:00 18 122/75 Mechanical Ventilator 100 06/13/20 09:00 100.0 100 35 150/80 (103) 96 06/13/20 08:40 98.1 95 18 123/74 97 Mechanical Ventilator 15.0 100 06/13/20 08:00 18 Mechanical Ventilator 100 06/13/20 08:00 18 122/75 Mechanical Ventilator 100 06/13/20 08:00 18 122/75 Mechanical Ventilator 100 06/13/20 07:41 98.1 95 18 123/74 94 Mechanical Ventilator 15.0 100 06/13/20 07:40 18 123/74 Mechanical Ventilator 100 Intake and Output 06/13/20 06/14/20 19:00 07:00 Intake Total 1539.191 ml 1788.50 ml Output Total 1625 ml Balance 1539.191 ml 163.50 ml Intake Free Water 200 ml IV Total 1539.191 ml 1588.50 ml Output Urine Total 1625 ml # Voids 420 Laboratory Tests 06/13/20 08:06: Arterial Blood pH 7.332L, Arterial Blood Partial Pressure CO2 42.6, Arterial Blood Partial Pressure O2 75.5, Arterial Blood HCO3 22.1, Arterial Blood Oxygen Saturation 94.3L, Arterial Blood Base Excess -3.7L, Manan Test Positive 06/14/20 04:00: White Blood Count 14.2H, Red Blood Count 4.41, Hemoglobin 13.7, Hematocrit 39.3, Mean Corpuscular Volume 89, Mean Corpuscular Hemoglobin 31.1H, Mean Corpuscular Hemoglobin Concent 34.9, Red Cell Distribution Width 13.0, Platelet Count 266, Mean Platelet Volume 6.8, Neutrophils (%) (Auto) , Lymphocytes (%) (Auto) , Monocytes (%) (Auto) , Eosinophils (%) (Auto) , Basophils (%) (Auto) , Neutrophils % (Manual) [Pending], Lymphocytes % (Manual) [Pending], Platelet Estimate [Pending], Platelet Morphology [Pending], Sodium Level 143, Potassium Level 4.8, Chloride Level 109H, Carbon Dioxide Level 25, Anion Gap 9, Blood Urea Nitrogen 29H, Creatinine 1.5H, Estimat Glomerular Filtration Rate 45.7, Glucose Level 120H, Calcium Level 8.2L, Total Bilirubin 0.6, Direct Bilirubin 0.2, Aspartate Amino Transf (AST/SGOT) 192H, Alanine Aminotransferase (ALT/SGPT) 57, Alkaline Phosphatase 79, Total Protein 8.0, Albumin 2.5L, Globulin 5.5, Albumin/Globulin Ratio 0.5L Height (Feet): 5 Height (Inches): 6.00 Weight (Pounds): 160 Objective deferred due to covid+ Assessment/Plan Problem List: (1) Pneumonia due to COVID-19 virus ICD Codes: U07.1 - COVID-19; J12.89 - Other viral pneumonia (2) Hypoxia ICD Codes: R09.02 - Hypoxemia SNOMED: 310163374 (3) Elevated d-dimer ICD Codes: R79.89 - Other specified abnormal findings of blood chemistry SNOMED: 921030377 (4) JIMENA (acute kidney injury) ICD Codes: N17.9 - Acute kidney failure, unspecified SNOMED: 78540122, 6507390 (5) Pneumonia ICD Codes: J18.9 - Pneumonia, unspecified organism SNOMED: 654934884 Status: stable, not improved Assessment/Plan: a/ resp failure pna due to covid arf rhabdo ?DM venous duplex neg p/ vent resp rx follow up covid abx per id monitor ck monitor bs dvt/stress ulcer prophylaxis critical and guarded Karel Key MD Jun 14, 2020 07:36
--- NOTE | 2020-06-14 07:56 | Infectious Diseases Prog Note ---
Assessment/Plan Assessment/Plan A 1. COVID 19 pneumonia 2. HIV, T-cell count of 326, viral load undetectable 3. prediabetes 4. respiratory failure with hypoxemia 5. Acute renal failure P 1. Continue remdesivir 2. continue dexamethasone day 4 3. will follow up cultures 4. continue isolation Subjective ROS Limited/Unobtainable: Yes Allergies: Coded Allergies: No Known Allergies (Unverified , 06/11/20) Objective Last 24 Hour Vital Signs Date Time Temp Pulse Resp B/P (MAP) Pulse Ox O2 Delivery O2 Flow Rate FiO2 06/14/20 07:00 111 25 136/79 (98) 92 06/14/20 06:30 110 16 06/14/20 06:30 111 24 139/78 (98) 91 06/14/20 06:12 16 Mechanical Ventilator 90 06/14/20 06:00 16 Mechanical Ventilator 90 06/14/20 06:00 16 139/78 Mechanical Ventilator 90 06/14/20 06:00 107 25 147/80 (102) 92 06/14/20 05:30 104 25 142/76 (98) 93 06/14/20 05:00 100 23 148/75 (99) 93 06/14/20 05:00 16 Mechanical Ventilator 90 06/14/20 05:00 16 142/76 Mechanical Ventilator 90 06/14/20 04:30 96 24 132/76 (94) 92 06/14/20 04:11 16 131/71 90 06/14/20 04:00 99.5 92 25 131/71 (91) 91 06/14/20 04:00 16 Mechanical Ventilator 90 06/14/20 04:00 16 141/62 Mechanical Ventilator 90 06/14/20 04:00 91 06/14/20 04:00 Mechanical Ventilator 06/14/20 03:30 89 22 119/79 (92) 91 06/14/20 03:10 68 23 90 06/14/20 03:00 16 Mechanical Ventilator 90 06/14/20 03:00 16 128/78 Mechanical Ventilator 90 06/14/20 03:00 91 24 128/78 (95) 91 06/14/20 02:30 90 25 135/82 (99) 90 06/14/20 02:00 83 20 127/72 (90) 94 06/14/20 02:00 16 Mechanical Ventilator 90 12/17/20 02:00 16 127/74 Mechanical Ventilator 90 06/14/20 01:30 83 19 124/75 (91) 93 06/14/20 01:00 16 Mechanical Ventilator 90 06/14/20 01:00 16 128/74 Mechanical Ventilator 90 06/14/20 01:00 82 21 128/74 (92) 93 06/14/20 00:30 87 20 124/75 (91) 93 06/14/20 00:00 99 06/14/20 00:00 16 Mechanical Ventilator 90 06/14/20 00:00 16 123/69 Mechanical Ventilator 90 06/14/20 00:00 99.7 87 19 123/69 (87) 92 06/14/20 00:00 Mechanical Ventilator 06/13/20 23:30 87 17 109/69 (82) 94 06/13/20 23:30 108 21 90 06/13/20 23:00 89 17 123/65 (84) 94 06/13/20 23:00 16 Mechanical Ventilator 90 06/13/20 23:00 16 Mechanical Ventilator 90 06/13/20 23:00 16 123/65 Mechanical Ventilator 90 06/13/20 23:00 16 117/81 Mechanical Ventilator 90 06/13/20 22:45 16 Mechanical Ventilator 90 06/13/20 22:45 16 115/75 Mechanical Ventilator 90 06/13/20 22:30 87 17 122/70 (87) 95 06/13/20 22:00 16 Mechanical Ventilator 90 06/13/20 22:00 16 116/86 Mechanical Ventilator 90 06/13/20 22:00 100.0 95 17 119/73 (88) 94 06/13/20 21:45 95 18 125/60 (81) 94 06/13/20 21:45 16 Mechanical Ventilator 90 06/13/20 21:45 16 125/60 Mechanical Ventilator 90 06/13/20 21:30 95 18 125/68 (87) 93 06/13/20 21:03 101.2 06/13/20 21:00 23 Mechanical Ventilator 90 06/13/20 21:00 23 131/70 Mechanical Ventilator 90 06/13/20 21:00 100 21 130/68 (88) 92 06/13/20 20:33 18 Mechanical Ventilator 90 06/13/20 20:30 101.7 97 19 128/69 (88) 92 06/13/20 20:00 100 23 137/70 (92) 92 06/13/20 20:00 23 Mechanical Ventilator 90 06/13/20 20:00 23 137/70 Mechanical Ventilator 90 06/13/20 20:00 97 06/13/20 20:00 Mechanical Ventilator 06/13/20 19:30 97 16 124/69 (87) 95 06/13/20 19:00 110 20 90 06/13/20 19:00 101 20 122/72 (89) 95 06/13/20 19:00 22 Mechanical Ventilator 90 06/13/20 19:00 22 140/62 Mechanical Ventilator 90 06/13/20 18:00 99.7 102 20 118/67 (84) 92 06/13/20 18:00 24 Mechanical Ventilator 100 06/13/20 18:00 24 140/70 Mechanical Ventilator 100 06/13/20 17:00 24 Mechanical Ventilator 100 06/13/20 17:00 24 140/72 Mechanical Ventilator 100 06/13/20 17:00 100 22 120/65 (83) 93 06/13/20 16:52 99.7 06/13/20 16:30 98 21 123/71 (88) 94 06/13/20 16:30 100 24 123/71 (88) 92 06/13/20 16:00 105 06/13/20 16:00 102 21 126/71 (89) 92 06/13/20 16:00 Mechanical Ventilator 06/13/20 16:00 24 Mechanical Ventilator 100 06/13/20 16:00 100.5 97 21 126/71 (89) 93 06/13/20 16:00 95 06/13/20 15:59 24 119/69 Mechanical Ventilator 15.0 100 06/13/20 15:58 24 119/69 Mechanical Ventilator 100 06/13/20 15:00 24 Mechanical Ventilator 100 06/13/20 15:00 22 119/69 Mechanical Ventilator 100 06/13/20 15:00 93 20 121/71 (88) 94 06/13/20 14:55 99 21 90 06/13/20 14:21 22 Mechanical Ventilator 100 06/13/20 14:21 22 Mechanical Ventilator 100 06/13/20 14:00 94 23 118/69 (85) 93 06/13/20 14:00 22 Mechanical Ventilator 100 06/13/20 14:00 22 140/72 Mechanical Ventilator 100 06/13/20 13:30 94 23 127/71 (89) 94 06/13/20 13:00 22 Mechanical Ventilator 100 06/13/20 13:00 22 140/64 Mechanical Ventilator 100 06/13/20 13:00 96 23 123/71 (88) 93 06/13/20 12:30 104 27 133/67 (89) 93 06/13/20 12:00 105 06/13/20 12:00 Mechanical Ventilator 06/13/20 12:00 26 Non-Rebreather 100 06/13/20 12:00 22 Mechanical Ventilator 100 06/13/20 12:00 26 Non-Rebreather 100 06/13/20 12:00 26 Non-Rebreather 100 06/13/20 12:00 26 Non-Rebreather 100 06/13/20 12:00 22 140/75 Mechanical Ventilator 100 06/13/20 12:00 100.3 101 27 142/84 (103) 94 06/13/20 11:32 26 Mechanical Ventilator 100 06/13/20 11:05 101 26 90 06/13/20 11:00 107 35 159/81 (107) 94 06/13/20 11:00 26 Mechanical Ventilator 100 06/13/20 11:00 26 133/78 Mechanical Ventilator 100 06/13/20 10:04 Mechanical Ventilator 06/13/20 10:00 102 35 150/80 (103) 94 06/13/20 10:00 24 Mechanical Ventilator 100 06/13/20 10:00 24 146/70 Mechanical Ventilator 100 06/13/20 10:00 100 06/13/20 09:30 91 06/13/20 09:04 94 29 90 06/13/20 09:04 94 29 94 Mechanical Ventilator 90 06/13/20 09:00 18 Mechanical Ventilator 100 06/13/20 09:00 18 122/75 Mechanical Ventilator 100 06/13/20 09:00 18 122/75 Mechanical Ventilator 100 06/13/20 09:00 100.0 100 35 150/80 (103) 96 06/13/20 08:40 98.1 95 18 123/74 97 Mechanical Ventilator 15.0 100 06/13/20 08:00 18 Mechanical Ventilator 100 06/13/20 08:00 18 122/75 Mechanical Ventilator 100 06/13/20 08:00 18 122/75 Mechanical Ventilator 100 Height (Feet): 5 Height (Inches): 6.00 Weight (Pounds): 160 HEENT: other - orally intubated Respiratory/Chest: other - on ventilator Cardiovascular: tachycardia Abdomen: soft, non tender Extremities: no edema Neurologic/Psychiatric: other - sedated Laboratory Tests Test 06/13/20 08:06 06/14/20 04:00 Arterial Blood pH 7.332 (7.350-7.450) Arterial Blood Partial Pressure CO2 42.6 mmHg (35.0-45.0) Arterial Blood Partial Pressure O2 75.5 mmHg (75.0-100.0) Arterial Blood HCO3 22.1 mmol/L (22.0-26.0) Arterial Blood Oxygen Saturation 94.3 % (95-100) L Arterial Blood Base Excess -3.7 (-2-2) L Manan Test Positive White Blood Count 14.2 K/UL (4.8-10.8) H Red Blood Count 4.41 M/UL (4.20-5.40) Hemoglobin 13.7 G/DL (12.0-16.0) Hematocrit 39.3 % (37.0-47.0) Mean Corpuscular Volume 89 FL (80-99) Mean Corpuscular Hemoglobin 31.1 PG (27.0-31.0) H Mean Corpuscular Hemoglobin Concent 34.9 G/DL (32.0-36.0) Red Cell Distribution Width 13.0 % (11.6-14.8) Platelet Count 266 K/UL (150-450) Mean Platelet Volume 6.8 FL (6.5-10.1) Neutrophils (%) (Auto) % (45.0-75.0) Lymphocytes (%) (Auto) % (20.0-45.0) Monocytes (%) (Auto) % (1.0-10.0) Eosinophils (%) (Auto) % (0.0-3.0) Basophils (%) (Auto) % (0.0-2.0) Neutrophils % (Manual) Pending Lymphocytes % (Manual) Pending Platelet Estimate Pending Platelet Morphology Pending Sodium Level 143 MMOL/L (136-145) Potassium Level 4.8 MMOL/L (3.5-5.1) Chloride Level 109 MMOL/L (98-107) H Carbon Dioxide Level 25 MMOL/L (21-32) Anion Gap 9 mmol/L (5-15) Blood Urea Nitrogen 29 mg/dL (7-18) H Creatinine 1.5 MG/DL (0.55-1.30) H Estimat Glomerular Filtration Rate 45.7 mL/min (>60) Glucose Level 120 MG/DL (74-106) H Calcium Level 8.2 MG/DL (8.5-10.1) L Total Bilirubin 0.6 MG/DL (0.2-1.0) Direct Bilirubin 0.2 MG/DL (0.0-0.3) Aspartate Amino Transf (AST/SGOT) 192 U/L (15-37) H Alanine Aminotransferase (ALT/SGPT) 57 U/L (12-78) Alkaline Phosphatase 79 U/L (46-116) Total Protein 8.0 G/DL (6.4-8.2) Albumin 2.5 G/DL (3.4-5.0) L Globulin 5.5 g/dL Albumin/Globulin Ratio 0.5 (1.0-2.7) L Current Medications Medications (Trade) Dose Ordered Sig/Candis Route PRN Reason Start Time Stop Time Status Last Admin Dose Admin Acetaminophen (Tylenol) 650 mg Q4H PRN ORAL fever 06/11/20 19:30 07/11/20 19:29 06/13/20 20:32 Dexamethasone Sodium Phosphate (Decadron 4mg/ml vial) 6 mg DAILY IVP 06/12/20 09:00 06/20/20 09:01 06/13/20 09:50 Enoxaparin Sodium (Lovenox) 40 mg DAILY SUBQ 06/12/20 09:00 09/10/20 08:59 06/13/20 10:05 Fentanyl Citrate 250 ml @ 1 mls/hr Q24H IV 06/12/20 16:30 06/14/20 16:29 06/14/20 04:11 Midazolam HCl 100 mg/Sodium Chloride 200 ml @ 0 mls/hr Q24H IV 06/13/20 14:00 06/15/20 13:59 06/14/20 06:12 Remdesivir 100 mg/ Sodium Chloride 250 ml @ 250 mls/hr Q24H IV 06/14/20 16:00 06/17/20 16:59 Sodium Chloride 1,000 ml @ 100 mls/hr Q10H IV 06/11/20 19:30 07/11/20 19:29 06/14/20 06:12 Juan Velazquez MD Jun 14, 2020 07:56
[2020-06-14] MEDS: Enoxaparin 40mg Inj SUBQ SCH (09:27)
--- NOTE | 2020-06-14 15:38 | Critical Care Progress Note ---
Assessment/Plan Assessment/Plan IMPRESSION: 1. Pneumonia, COVID. 2. Elevated creatine kinase, mild rhabdo. 3. Elevated creatinine with acute renal failure. 4. HIV, currently nondetectable. 5. metabolic acidosis 6. hypoxemia. 7. Acute hypoxemic respiratory failure RECOMMENDATION: ID follow up. IV hydration. Empiric antibiotics as is and Decadron. DVT prophylaxis. Monitor clinically for changes. dietary and NGT feeds supportive care sedation cannot wean at present remains critical at present medications/laboratory data/nursing notes/ICU care reviewed in detail note reviewed and edited care discussed with RN and RT ICU time spent >40 minutes Critical Care - Subjective Interval Events: care noted on vent oxygenation worse reviewed sedated ROS Limited/Unobtainable: Yes Condition: critical EKG Rhythm: Sinus Rhythm Residuals: minimal Tube Feeding Tolerated: yes I&O: Intake and Output 06/13/20 06/14/20 19:00 07:00 Intake Total 1539.191 ml 1886.00 ml Output Total 1625 ml Balance 1539.191 ml 261.00 ml Intake Free Water 200 ml IV Total 1539.191 ml 1686.00 ml Output Urine Total 1625 ml # Voids 420 Critical Care - Objective ET-Tube: 7.0 ET Position: 24 Last 24 Hour Vital Signs Date Time Temp Pulse Resp B/P (MAP) Pulse Ox O2 Delivery O2 Flow Rate FiO2 06/14/20 15:30 72 16 121/78 (92) 100 06/14/20 15:00 78 19 122/79 (93) 100 06/14/20 14:30 74 18 122/77 (92) 100 06/14/20 14:00 23 Mechanical Ventilator 85 06/14/20 14:00 23 125/77 Mechanical Ventilator 85 06/14/20 14:00 84 22 125/77 (93) 95 06/14/20 13:00 21 Mechanical Ventilator 85 06/14/20 13:00 21 125/74 Mechanical Ventilator 85 06/14/20 13:00 75 17 128/76 (93) 97 06/14/20 12:00 77 25 130/82 (98) 97 06/14/20 12:00 78 06/14/20 12:00 97.4 06/14/20 12:00 Mechanical Ventilator Mechanical Ventilator 06/14/20 12:00 21 Mechanical Ventilator 85 06/14/20 12:00 21 125/80 Mechanical Ventilator 85 06/14/20 11:54 81 19 90 06/14/20 11:30 73 17 127/75 (92) 97 06/14/20 11:00 85 23 121/74 (90) 92 06/14/20 11:00 20 Mechanical Ventilator 90 06/14/20 11:00 21 127/75 Mechanical Ventilator 90 06/14/20 10:30 92 20 128/78 (95) 96 06/14/20 10:00 97 22 120/83 (95) 96 06/14/20 10:00 21 Mechanical Ventilator 90 06/14/20 10:00 21 128/78 Mechanical Ventilator 90 06/14/20 10:00 90 06/14/20 09:50 100.1 06/14/20 09:30 101 21 143/81 (101) 96 06/14/20 09:00 107 25 141/78 (99) 94 06/14/20 09:00 108 23 90 06/14/20 09:00 23 Mechanical Ventilator 90 06/14/20 09:00 23 143/81 Mechanical Ventilator 90 06/14/20 08:30 112 26 147/80 (102) 93 06/14/20 08:00 101.0 129 34 180/80 (113) 90 06/14/20 08:00 Mechanical Ventilator Mechanical Ventilator 06/14/20 08:00 26 Mechanical Ventilator 90 06/14/20 08:00 26 147/80 Mechanical Ventilator 90 06/14/20 08:00 88 06/14/20 07:12 112 25 90 06/14/20 07:00 111 25 136/79 (98) 92 06/14/20 07:00 26 Mechanical Ventilator 90 06/14/20 07:00 24 156/79 Mechanical Ventilator 90 06/14/20 06:30 110 16 06/14/20 06:30 111 24 139/78 (98) 91 06/14/20 06:12 16 Mechanical Ventilator 90 06/14/20 06:00 16 Mechanical Ventilator 90 06/14/20 06:00 16 139/78 Mechanical Ventilator 90 06/14/20 06:00 107 25 147/80 (102) 92 06/14/20 05:30 104 25 142/76 (98) 93 06/14/20 05:00 100 23 148/75 (99) 93 06/14/20 05:00 16 Mechanical Ventilator 90 06/14/20 05:00 16 142/76 Mechanical Ventilator 90 06/14/20 04:30 96 24 132/76 (94) 92 06/14/20 04:11 16 131/71 90 06/14/20 04:00 99.5 92 25 131/71 (91) 91 06/14/20 04:00 16 Mechanical Ventilator 90 06/14/20 04:00 16 141/62 Mechanical Ventilator 90 06/14/20 04:00 91 06/14/20 04:00 Mechanical Ventilator 06/14/20 03:30 89 22 119/79 (92) 91 06/14/20 03:10 68 23 90 06/14/20 03:00 16 Mechanical Ventilator 90 06/14/20 03:00 16 128/78 Mechanical Ventilator 90 06/14/20 03:00 91 24 128/78 (95) 91 06/14/20 02:30 90 25 135/82 (99) 90 06/14/20 02:00 83 20 127/72 (90) 94 06/14/20 02:00 16 Mechanical Ventilator 90 06/14/20 02:00 16 127/74 Mechanical Ventilator 90 06/14/20 01:30 83 19 124/75 (91) 93 06/14/20 01:00 16 Mechanical Ventilator 90 06/14/20 01:00 16 128/74 Mechanical Ventilator 90 06/14/20 01:00 82 21 128/74 (92) 93 06/14/20 00:30 87 20 124/75 (91) 93 06/14/20 00:00 99 06/14/20 00:00 16 Mechanical Ventilator 90 06/14/20 00:00 16 123/69 Mechanical Ventilator 90 06/14/20 00:00 99.7 87 19 123/69 (87) 92 06/14/20 00:00 Mechanical Ventilator 06/13/20 23:30 87 17 109/69 (82) 94 06/13/20 23:30 108 21 90 06/13/20 23:00 89 17 123/65 (84) 94 06/13/20 23:00 16 Mechanical Ventilator 90 06/13/20 23:00 16 Mechanical Ventilator 90 06/13/20 23:00 16 123/65 Mechanical Ventilator 90 06/13/20 23:00 16 117/81 Mechanical Ventilator 90 06/13/20 22:45 16 Mechanical Ventilator 90 06/13/20 22:45 16 115/75 Mechanical Ventilator 90 06/13/20 22:30 87 17 122/70 (87) 95 06/13/20 22:00 16 Mechanical Ventilator 90 06/13/20 22:00 16 116/86 Mechanical Ventilator 90 06/13/20 22:00 100.0 95 17 119/73 (88) 94 06/13/20 21:45 95 18 125/60 (81) 94 06/13/20 21:45 16 Mechanical Ventilator 90 06/13/20 21:45 16 125/60 Mechanical Ventilator 90 06/13/20 21:30 95 18 125/68 (87) 93 06/13/20 21:03 101.2 06/13/20 21:00 23 Mechanical Ventilator 90 06/13/20 21:00 23 131/70 Mechanical Ventilator 90 06/13/20 21:00 100 21 130/68 (88) 92 06/13/20 20:33 18 Mechanical Ventilator 90 06/13/20 20:30 101.7 97 19 128/69 (88) 92 06/13/20 20:00 100 23 137/70 (92) 92 06/13/20 20:00 23 Mechanical Ventilator 90 06/13/20 20:00 23 137/70 Mechanical Ventilator 90 06/13/20 20:00 97 06/13/20 20:00 Mechanical Ventilator 06/13/20 19:30 97 16 124/69 (87) 95 06/13/20 19:00 110 20 90 06/13/20 19:00 101 20 122/72 (89) 95 06/13/20 19:00 22 Mechanical Ventilator 90 06/13/20 19:00 22 140/62 Mechanical Ventilator 90 06/13/20 18:00 99.7 102 20 118/67 (84) 92 06/13/20 18:00 24 Mechanical Ventilator 100 06/13/20 18:00 24 140/70 Mechanical Ventilator 100 06/13/20 17:00 24 Mechanical Ventilator 100 06/13/20 17:00 24 140/72 Mechanical Ventilator 100 06/13/20 17:00 100 22 120/65 (83) 93 06/13/20 16:52 99.7 06/13/20 16:30 98 21 123/71 (88) 94 06/13/20 16:30 100 24 123/71 (88) 92 12/16/20 16:00 105 06/13/20 16:00 102 21 126/71 (89) 92 06/13/20 16:00 Mechanical Ventilator 06/13/20 16:00 24 Mechanical Ventilator 100 06/13/20 16:00 100.5 97 21 126/71 (89) 93 06/13/20 16:00 95 06/13/20 15:59 24 119/69 Mechanical Ventilator 15.0 100 06/13/20 15:58 24 119/69 Mechanical Ventilator 100 Labs: Laboratory Tests 06/14/20 04:00: White Blood Count 14.2H, Red Blood Count 4.41, Hemoglobin 13.7, Hematocrit 39.3, Mean Corpuscular Volume 89, Mean Corpuscular Hemoglobin 31.1H, Mean Corpuscular Hemoglobin Concent 34.9, Red Cell Distribution Width 13.0, Platelet Count 266, Mean Platelet Volume 6.8, Neutrophils (%) (Auto) , Lymphocytes (%) (Auto) , Monocytes (%) (Auto) , Eosinophils (%) (Auto) , Basophils (%) (Auto) , Differential Total Cells Counted 100, Neutrophils % (Manual) 90H, Lymphocytes % (Manual) 7L, Monocytes % (Manual) 3, Eosinophils % (Manual) 0, Basophils % (Manual) 0, Band Neutrophils 0, Platelet Estimate Adequate, Platelet Morphology Normal, Red Blood Cell Morphology Normal, Sodium Level 143, Potassium Level 4.8, Chloride Level 109H, Carbon Dioxide Level 25, Anion Gap 9, Blood Urea Nitrogen 29H, Creatinine 1.5H, Estimat Glomerular Filtration Rate 45.7, Glucose Level 120H, Calcium Level 8.2L, Total Bilirubin 0.6, Direct Bilirubin 0.2, Aspartate Amino Transf (AST/SGOT) 192H, Alanine Aminotransferase (ALT/SGPT) 57, Alkaline Phosphatase 79, Total Protein 8.0, Albumin 2.5L, Globulin 5.5, Albumin/Globulin Ratio 0.5L 06/14/20 08:36: Arterial Blood pH 7.336L, Arterial Blood Partial Pressure CO2 44.8, Arterial Blood Partial Pressure O2 72.1L, Arterial Blood HCO3 23.4, Arterial Blood Oxygen Saturation 92.9L, Arterial Blood Base Excess -2.6L, Manan Test Positive Objective: deferred due to COVID Accucheck: 157 Robinson Bolton MD Jun 14, 2020 15:38
[2020-06-14] MEDS: Maintenance Dose:Remdesivir 100mg/NS 230ml x 4 Doses IV SCH ×2 (16:14)
[2020-06-15] VITALS (25 sets, daily range): BP systolic 128–179; BP diastolic 71–91
[2020-06-15 05:40] LABS: HEMATOCRIT 42.3 % (37.0-47.0); HEMOGLOBIN 14.3 G/DL (12.0-16.0); MEAN CORPUSCULAR VOLUME 91 FL (80-99); PLATELET COUNT 293 K/UL (150-450); RED BLOOD COUNT 4.65 M/UL (4.20-5.40); RED CELL DISTRIBUTION WIDTH 12.7 % (11.6-14.8); WHITE BLOOD COUNT 18.2 K/UL (4.8-10.8)
[2020-06-15 06:11] LABS: ALBUMIN 2.4 G/DL (3.4-5.0); ALBUMIN/GLOBULIN RATIO 0.4 (1.0-2.7); BILIRUBIN,DIRECT 0.2 MG/DL (0.0-0.3); BILIRUBIN,TOTAL 0.4 MG/DL (0.2-1.0); CALCIUM 8.7 MG/DL (8.5-10.1); CREATININE 1.4 MG/DL (0.55-1.30); POTASSIUM 5.2 MMOL/L (3.5-5.1)
--- NOTE | 2020-06-15 07:45 | General Progress Note ---
Subjective ROS Limited/Unobtainable: No Constitutional: Reports: malaise, weakness HEENT: Reports: no symptoms Cardiovascular: Reports: no symptoms Respiratory: Reports: no symptoms Gastrointestinal/Abdominal: Reports: no symptoms Genitourinary: Reports: no symptoms Neurologic/Psychiatric: Reports: no symptoms Endocrine: Reports: no symptoms Hematologic/Lymphatic: Reports: no symptoms Allergies: Coded Allergies: No Known Allergies (Unverified , 06/11/20) All Systems: reviewed and negative except above Subjective no events. remains intubated. elevated k. on steroids and remdesivir Objective Last 24 Hour Vital Signs Date Time Temp Pulse Resp B/P (MAP) Pulse Ox O2 Delivery O2 Flow Rate FiO2 06/15/20 07:00 94 23 136/82 (100) 94 06/15/20 07:00 23 136/82 Mechanical Ventilator 85 06/15/20 07:00 25 85 06/15/20 06:00 99.7 106 25 164/86 (112) 97 06/15/20 06:00 25 164/86 Mechanical Ventilator 85 06/15/20 06:00 25 Mechanical Ventilator 85 06/15/20 05:00 109 23 173/87 (115) 96 06/15/20 05:00 23 173/87 Mechanical Ventilator 85 06/15/20 05:00 23 Mechanical Ventilator 85 06/15/20 04:00 104 06/15/20 04:00 104 21 152/80 (104) 97 06/15/20 04:00 18 128/85 Mechanical Ventilator 85 06/15/20 04:00 21 85 06/15/20 04:00 Mechanical Ventilator Mechanical Ventilator 06/15/20 03:15 85 20 85 06/15/20 03:00 81 18 128/85 (99) 97 06/15/20 03:00 18 128/85 Mechanical Ventilator 85 06/15/20 03:00 18 85 06/15/20 02:00 18 128/83 Mechanical Ventilator 85 06/15/20 02:00 18 Mechanical Ventilator 85 06/15/20 02:00 79 18 128/83 (98) 97 06/15/20 01:00 22 139/87 Mechanical Ventilator 85 06/15/20 01:00 22 Mechanical Ventilator 85 06/15/20 01:00 87 22 139/87 (104) 95 06/15/20 00:00 20 149/91 Mechanical Ventilator 85 06/15/20 00:00 22 Mechanical Ventilator 85 06/15/20 00:00 99.8 95 20 149/91 (110) 96 06/15/20 00:00 Mechanical Ventilator Mechanical Ventilator 06/14/20 23:37 99 21 85 06/14/20 23:00 104 21 150/90 (110) 95 06/14/20 23:00 21 150/90 Mechanical Ventilator 85 06/14/20 23:00 21 Mechanical Ventilator 85 06/14/20 22:00 92 20 133/102 (112) 91 06/14/20 22:00 20 133/102 Mechanical Ventilator 85 06/14/20 21:00 82 23 138/80 (99) 98 06/14/20 21:00 23 138/80 Mechanical Ventilator 85 06/14/20 21:00 23 Mechanical Ventilator 85 06/14/20 20:00 73 16 129/81 (97) 99 06/14/20 20:00 Mechanical Ventilator Mechanical Ventilator 06/14/20 20:00 16 129/81 Mechanical Ventilator 85 06/14/20 20:00 16 Mechanical Ventilator 85 06/14/20 20:00 73 06/14/20 19:54 85 19 85 06/14/20 19:29 22 125/85 96 06/14/20 19:00 85 20 125/85 (98) 94 06/14/20 19:00 21 Mechanical Ventilator 85 06/14/20 19:00 21 135/83 Mechanical Ventilator 85 06/14/20 18:30 85 20 140/83 (102) 95 06/14/20 18:00 21 Mechanical Ventilator 85 06/14/20 18:00 21 140/83 Mechanical Ventilator 85 06/14/20 18:00 92 21 133/84 (100) 94 06/14/20 17:30 94 29 127/59 (81) 97 06/14/20 17:00 97 22 143/82 (102) 93 06/14/20 17:00 24 Mechanical Ventilator 85 06/14/20 17:00 21 139/82 Mechanical Ventilator 85 06/14/20 16:00 Mechanical Ventilator Mechanical Ventilator 06/14/20 16:00 24 Mechanical Ventilator 85 06/14/20 16:00 22 139/86 Mechanical Ventilator 85 06/14/20 16:00 98.2 81 15 120/81 (94) 98 06/14/20 16:00 97 06/14/20 15:30 72 16 121/78 (92) 100 06/14/20 15:25 89 20 90 06/14/20 15:00 78 19 122/79 (93) 100 06/14/20 15:00 21 Mechanical Ventilator 85 06/14/20 15:00 19 121/78 Mechanical Ventilator 85 06/14/20 14:30 74 18 122/77 (92) 100 06/14/20 14:00 23 Mechanical Ventilator 85 06/14/20 14:00 23 125/77 Mechanical Ventilator 85 06/14/20 14:00 84 22 125/77 (93) 95 06/14/20 13:00 21 Mechanical Ventilator 85 06/14/20 13:00 21 125/74 Mechanical Ventilator 85 06/14/20 13:00 75 17 128/76 (93) 97 06/14/20 12:00 77 25 130/82 (98) 97 06/14/20 12:00 78 06/14/20 12:00 97.4 06/14/20 12:00 Mechanical Ventilator Mechanical Ventilator 06/14/20 12:00 21 Mechanical Ventilator 85 06/14/20 12:00 21 125/80 Mechanical Ventilator 85 06/14/20 11:54 81 19 90 06/14/20 11:30 73 17 127/75 (92) 97 06/14/20 11:00 85 23 121/74 (90) 92 06/14/20 11:00 20 Mechanical Ventilator 90 06/14/20 11:00 21 127/75 Mechanical Ventilator 90 06/14/20 10:30 92 20 128/78 (95) 96 06/14/20 10:00 97 22 120/83 (95) 96 06/14/20 10:00 21 Mechanical Ventilator 90 06/14/20 10:00 21 128/78 Mechanical Ventilator 90 06/14/20 10:00 90 06/14/20 09:50 100.1 06/14/20 09:30 101 21 143/81 (101) 96 06/14/20 09:00 107 25 141/78 (99) 94 06/14/20 09:00 108 23 90 06/14/20 09:00 23 Mechanical Ventilator 90 06/14/20 09:00 23 143/81 Mechanical Ventilator 90 06/14/20 08:30 112 26 147/80 (102) 93 06/14/20 08:00 101.0 129 34 180/80 (113) 90 06/14/20 08:00 Mechanical Ventilator Mechanical Ventilator 06/14/20 08:00 26 Mechanical Ventilator 90 06/14/20 08:00 26 147/80 Mechanical Ventilator 90 06/14/20 08:00 88 Intake and Output 06/14/20 06/15/20 19:00 07:00 Intake Total 1839.5 ml 1561.04 ml Output Total 1775 ml 1375 ml Balance 64.5 ml 186.04 ml IV Total 1799.5 ml 1341.04 ml Tube Feeding 40 ml 220 ml Output Urine Total 1775 ml 1375 ml Laboratory Tests 06/14/20 08:36: Arterial Blood pH 7.336L, Arterial Blood Partial Pressure CO2 44.8, Arterial Blood Partial Pressure O2 72.1L, Arterial Blood HCO3 23.4, Arterial Blood Oxygen Saturation 92.9L, Arterial Blood Base Excess -2.6L, Manan Test Positive 06/15/20 04:40: White Blood Count 18.2H, Red Blood Count 4.65, Hemoglobin 14.3, Hematocrit 42.3, Mean Corpuscular Volume 91, Mean Corpuscular Hemoglobin 30.9, Mean Corpuscular Hemoglobin Concent 33.9, Red Cell Distribution Width 12.7, Platelet Count 293, Mean Platelet Volume 7.7, Neutrophils (%) (Auto) , Lymphocytes (%) (Auto) , Monocytes (%) (Auto) , Eosinophils (%) (Auto) , Basophils (%) (Auto) , Neutrophils % (Manual) [Pending], Lymphocytes % (Manual) [Pending], Platelet Estimate [Pending], Platelet Morphology [Pending], Sodium Level 146H, Potassium Level 5.2H, Chloride Level 112H, Carbon Dioxide Level 27, Anion Gap 7, Blood Urea Nitrogen 35H, Creatinine 1.4H, Estimat Glomerular Filtration Rate 49.6, Glucose Level 175H, Calcium Level 8.7, Total Bilirubin 0.4, Direct Bilirubin 0.2, Aspartate Amino Transf (AST/SGOT) 146H, Alanine Aminotransferase (ALT/SGPT) 70, Alkaline Phosphatase 95, Total Protein 8.2, Albumin 2.4L, Globulin 5.8, Albumin/Globulin Ratio 0.4L Height (Feet): 5 Height (Inches): 6.00 Weight (Pounds): 160 Objective deferred due to covid+ Assessment/Plan Problem List: (1) Pneumonia due to COVID-19 virus ICD Codes: U07.1 - COVID-19; J12.89 - Other viral pneumonia (2) Hypoxia ICD Codes: R09.02 - Hypoxemia SNOMED: 990041474 (3) Elevated d-dimer ICD Codes: R79.89 - Other specified abnormal findings of blood chemistry SNOMED: 744245796 (4) JIMENA (acute kidney injury) ICD Codes: N17.9 - Acute kidney failure, unspecified SNOMED: 51306969, 1048386 (5) Pneumonia ICD Codes: J18.9 - Pneumonia, unspecified organism SNOMED: 880852574 Status: stable, not improved Assessment/Plan: a/ resp failure pna due to covid arf rhabdo ?DM venous duplex neg p/ vent resp rx steroids/remdesivir monitor bs hypotonic ivf dvt/stress ulcer prophylaxis critical and guarded Karel Key MD Jun 15, 2020 07:45
[2020-06-15] MEDS: Enoxaparin 40mg Inj SUBQ SCH (08:59)
[2020-06-15] MEDS: fentaNYL 2500mcg/NS 250ml 250 ML IV SCH ×2 (09:00→21:30)
--- NOTE | 2020-06-15 10:52 | Diagnostic Imaging Report ---
Indication: Shortness of breath Technique: One view of the chest Comparison: 06/13/2020 Findings: Body habitus limits evaluation. The heart is enlarged. Cardiomegaly persists. Bilateral mid and lower lung infiltrates versus edema are unchanged. Impression: Unchanged, over one day, findings as above.
--- NOTE | 2020-06-15 11:35 | Infectious Diseases Prog Note ---
Assessment/Plan Assessment/Plan antibiotics : remdesivir A 1. COVID 19 pneumonia on 85 percent Fi O2, saturation 96 percent 2. HIV, T-cell count of 326, viral load undetectable 3. prediabetes 4. respiratory failure P 1. continue remdesivir day 3 2. continue dexamethasone day 5 3. will follow up cultures 4. continue isolation Subjective ROS Limited/Unobtainable: Yes Allergies: Coded Allergies: No Known Allergies (Unverified , 06/11/20) Objective Last 24 Hour Vital Signs Date Time Temp Pulse Resp B/P (MAP) Pulse Ox O2 Delivery O2 Flow Rate FiO2 06/15/20 11:00 16 134/79 Mechanical Ventilator 85 06/15/20 11:00 16 Mechanical Ventilator 85 06/15/20 11:00 78 20 134/79 (97) 96 06/15/20 10:30 79 21 138/71 (93) 94 06/15/20 10:00 81 23 137/80 (99) 94 06/15/20 10:00 22 137/80 Mechanical Ventilator 85 06/15/20 10:00 22 Mechanical Ventilator 85 06/15/20 09:00 80 22 141/82 (101) 94 06/15/20 09:00 23 144/88 Mechanical Ventilator 85 06/15/20 09:00 23 Mechanical Ventilator 85 06/15/20 08:00 Mechanical Ventilator Mechanical Ventilator 06/15/20 08:00 98.6 83 23 149/79 (102) 94 06/15/20 08:00 23 149/79 Mechanical Ventilator 85 06/15/20 08:00 23 Mechanical Ventilator 85 06/15/20 08:00 85 06/15/20 07:35 93 22 85 06/15/20 07:00 94 23 136/82 (100) 94 06/15/20 07:00 23 136/82 Mechanical Ventilator 85 06/15/20 07:00 25 85 06/15/20 06:30 106 16 06/15/20 06:00 99.7 106 25 164/86 (112) 97 06/15/20 06:00 25 164/86 Mechanical Ventilator 85 06/15/20 06:00 25 Mechanical Ventilator 85 06/15/20 05:00 109 23 173/87 (115) 96 06/15/20 05:00 23 173/87 Mechanical Ventilator 85 06/15/20 05:00 23 Mechanical Ventilator 85 06/15/20 04:00 104 06/15/20 04:00 104 21 152/80 (104) 97 06/15/20 04:00 18 128/85 Mechanical Ventilator 85 06/15/20 04:00 21 85 06/15/20 04:00 Mechanical Ventilator Mechanical Ventilator 06/15/20 03:15 85 20 85 06/15/20 03:00 81 18 128/85 (99) 97 06/15/20 03:00 18 128/85 Mechanical Ventilator 85 06/15/20 03:00 18 85 06/15/20 02:00 18 128/83 Mechanical Ventilator 85 06/15/20 02:00 18 Mechanical Ventilator 85 06/15/20 02:00 79 18 128/83 (98) 97 06/15/20 01:00 22 139/87 Mechanical Ventilator 85 06/15/20 01:00 22 Mechanical Ventilator 85 06/15/20 01:00 87 22 139/87 (104) 95 06/15/20 00:00 20 149/91 Mechanical Ventilator 85 06/15/20 00:00 22 Mechanical Ventilator 85 06/15/20 00:00 99.8 95 20 149/91 (110) 96 06/15/20 00:00 Mechanical Ventilator Mechanical Ventilator 06/14/20 23:37 99 21 85 06/14/20 23:00 104 21 150/90 (110) 95 06/14/20 23:00 21 150/90 Mechanical Ventilator 85 06/14/20 23:00 21 Mechanical Ventilator 85 06/14/20 22:00 92 20 133/102 (112) 91 06/14/20 22:00 20 133/102 Mechanical Ventilator 85 06/14/20 21:00 82 23 138/80 (99) 98 06/14/20 21:00 23 138/80 Mechanical Ventilator 85 06/14/20 21:00 23 Mechanical Ventilator 85 06/14/20 20:00 73 16 129/81 (97) 99 06/14/20 20:00 Mechanical Ventilator Mechanical Ventilator 06/14/20 20:00 16 129/81 Mechanical Ventilator 85 06/14/20 20:00 16 Mechanical Ventilator 85 06/14/20 20:00 73 06/14/20 19:54 85 19 85 06/14/20 19:29 22 125/85 96 06/14/20 19:00 85 20 125/85 (98) 94 06/14/20 19:00 21 Mechanical Ventilator 85 06/14/20 19:00 21 135/83 Mechanical Ventilator 85 06/14/20 18:30 85 20 140/83 (102) 95 06/14/20 18:00 21 Mechanical Ventilator 85 06/14/20 18:00 21 140/83 Mechanical Ventilator 85 06/14/20 18:00 92 21 133/84 (100) 94 06/14/20 17:30 94 29 127/59 (81) 97 06/14/20 17:00 97 22 143/82 (102) 93 06/14/20 17:00 24 Mechanical Ventilator 85 06/14/20 17:00 21 139/82 Mechanical Ventilator 85 06/14/20 16:00 Mechanical Ventilator Mechanical Ventilator 06/14/20 16:00 24 Mechanical Ventilator 85 06/14/20 16:00 22 139/86 Mechanical Ventilator 85 06/14/20 16:00 98.2 81 15 120/81 (94) 98 06/14/20 16:00 97 06/14/20 15:30 72 16 121/78 (92) 100 06/14/20 15:25 89 20 90 06/14/20 15:00 78 19 122/79 (93) 100 06/14/20 15:00 21 Mechanical Ventilator 85 06/14/20 15:00 19 121/78 Mechanical Ventilator 85 06/14/20 14:30 74 18 122/77 (92) 100 06/14/20 14:00 23 Mechanical Ventilator 85 06/14/20 14:00 23 125/77 Mechanical Ventilator 85 06/14/20 14:00 84 22 125/77 (93) 95 06/14/20 13:00 21 Mechanical Ventilator 85 06/14/20 13:00 21 125/74 Mechanical Ventilator 85 06/14/20 13:00 75 17 128/76 (93) 97 06/14/20 12:00 77 25 130/82 (98) 97 06/14/20 12:00 78 06/14/20 12:00 97.4 06/14/20 12:00 Mechanical Ventilator Mechanical Ventilator 06/14/20 12:00 21 Mechanical Ventilator 85 06/14/20 12:00 21 125/80 Mechanical Ventilator 85 06/14/20 11:54 81 19 90 Height (Feet): 5 Height (Inches): 6.00 Weight (Pounds): 160 Laboratory Tests Test 06/15/20 04:40 White Blood Count 18.2 K/UL (4.8-10.8) H Red Blood Count 4.65 M/UL (4.20-5.40) Hemoglobin 14.3 G/DL (12.0-16.0) Hematocrit 42.3 % (37.0-47.0) Mean Corpuscular Volume 91 FL (80-99) Mean Corpuscular Hemoglobin 30.9 PG (27.0-31.0) Mean Corpuscular Hemoglobin Concent 33.9 G/DL (32.0-36.0) Red Cell Distribution Width 12.7 % (11.6-14.8) Platelet Count 293 K/UL (150-450) Mean Platelet Volume 7.7 FL (6.5-10.1) Neutrophils (%) (Auto) % (45.0-75.0) Lymphocytes (%) (Auto) % (20.0-45.0) Monocytes (%) (Auto) % (1.0-10.0) Eosinophils (%) (Auto) % (0.0-3.0) Basophils (%) (Auto) % (0.0-2.0) Differential Total Cells Counted 100 Neutrophils % (Manual) 91 % (45-75) H Lymphocytes % (Manual) 4 % (20-45) L Monocytes % (Manual) 5 % (1-10) Eosinophils % (Manual) 0 % (0-3) Basophils % (Manual) 0 % (0-2) Band Neutrophils 0 % (0-8) Platelet Estimate Adequate Platelet Morphology Normal Red Blood Cell Morphology Normal Sodium Level 146 MMOL/L (136-145) H Potassium Level 5.2 MMOL/L (3.5-5.1) H Chloride Level 112 MMOL/L (98-107) H Carbon Dioxide Level 27 MMOL/L (21-32) Anion Gap 7 mmol/L (5-15) Blood Urea Nitrogen 35 mg/dL (7-18) H Creatinine 1.4 MG/DL (0.55-1.30) H Estimat Glomerular Filtration Rate 49.6 mL/min (>60) Glucose Level 175 MG/DL (74-106) H Calcium Level 8.7 MG/DL (8.5-10.1) Total Bilirubin 0.4 MG/DL (0.2-1.0) Direct Bilirubin 0.2 MG/DL (0.0-0.3) Aspartate Amino Transf (AST/SGOT) 146 U/L (15-37) H Alanine Aminotransferase (ALT/SGPT) 70 U/L (12-78) Alkaline Phosphatase 95 U/L (46-116) Total Protein 8.2 G/DL (6.4-8.2) Albumin 2.4 G/DL (3.4-5.0) L Globulin 5.8 g/dL Albumin/Globulin Ratio 0.4 (1.0-2.7) L Current Medications Medications (Trade) Dose Ordered Sig/Candis Route PRN Reason Start Time Stop Time Status Last Admin Dose Admin Acetaminophen (Tylenol) 650 mg Q4H PRN ORAL fever 06/11/20 19:30 07/11/20 19:29 06/14/20 09:20 Dexamethasone Sodium Phosphate (Decadron 4mg/ml vial) 6 mg DAILY IVP 06/12/20 09:00 06/20/20 09:01 06/15/20 08:58 Dextrose 1,000 ml @ 100 mls/hr Q10H IV 06/15/20 07:15 07/15/20 07:14 06/15/20 07:00 Enoxaparin Sodium (Lovenox) 40 mg DAILY SUBQ 06/12/20 09:00 09/10/20 08:59 06/15/20 08:59 Fentanyl Citrate 250 ml @ 0 mls/hr Q24H IV 06/14/20 17:21 06/16/20 17:20 06/15/20 09:00 Midazolam HCl 100 mg/Sodium Chloride 200 ml @ 0 mls/hr Q24H IV 06/13/20 14:00 06/18/20 13:59 06/14/20 23:00 Remdesivir 100 mg/ Sodium Chloride 250 ml @ 250 mls/hr Q24H IV 06/14/20 16:00 06/17/20 16:59 06/14/20 16:14 Kyle Calderon MD Jun 15, 2020 11:35
--- NOTE | 2020-06-15 13:08 | Critical Care Progress Note ---
Assessment/Plan Assessment/Plan IMPRESSION: 1. Pneumonia, COVID. 2. Elevated creatine kinase, mild rhabdo. 3. Elevated creatinine with acute renal failure. 4. HIV, currently nondetectable. 5. metabolic acidosis 6. hypoxemia. 7. Acute hypoxemic respiratory failure 8. hypernatremia 9. leukocytosis RECOMMENDATION: ID follow up. IV hydration. Empiric antibiotics as is and Decadron. DVT prophylaxis. Monitor clinically for changes. dietary and NGT feeds supportive care sedation D5w for now and monitor lytes cannot wean at present remains critical at present try to decrease fio2 as able medications/laboratory data/nursing notes/ICU care reviewed in detail note reviewed and edited care discussed with RN and RT ICU time spent >40 minutes Critical Care - Subjective Interval Events: worsening oxygenation abnormal electrolytes on vent not improved sedated ROS Limited/Unobtainable: Yes Condition: critical EKG Rhythm: Sinus Rhythm Residuals: minimal Tube Feeding Tolerated: yes I&O: Intake and Output 06/14/20 06/15/20 19:00 07:00 Intake Total 1839.5 ml 1581.04 ml Output Total 1775 ml 1500 ml Balance 64.5 ml 81.04 ml IV Total 1799.5 ml 1341.04 ml Tube Feeding 40 ml 240 ml Output Urine Total 1775 ml 1500 ml Critical Care - Objective ET-Tube: 7.0 ET Position: 24 Last 24 Hour Vital Signs Date Time Temp Pulse Resp B/P (MAP) Pulse Ox O2 Delivery O2 Flow Rate FiO2 06/15/20 13:00 94 20 131/82 (98) 99 06/15/20 12:00 90 06/15/20 12:00 97.8 83 21 134/80 (98) 98 06/15/20 12:00 21 134/80 Mechanical Ventilator 85 06/15/20 12:00 22 Mechanical Ventilator 85 06/15/20 12:00 Mechanical Ventilator Mechanical Ventilator 06/15/20 11:00 16 134/79 Mechanical Ventilator 85 06/15/20 11:00 16 Mechanical Ventilator 85 06/15/20 11:00 78 20 134/79 (97) 96 06/15/20 10:30 79 21 138/71 (93) 94 06/15/20 10:00 81 23 137/80 (99) 94 06/15/20 10:00 22 137/80 Mechanical Ventilator 85 06/15/20 10:00 22 Mechanical Ventilator 85 06/15/20 09:00 80 22 141/82 (101) 94 06/15/20 09:00 23 144/88 Mechanical Ventilator 85 06/15/20 09:00 23 Mechanical Ventilator 85 06/15/20 08:00 82 06/15/20 08:00 Mechanical Ventilator Mechanical Ventilator 06/15/20 08:00 98.6 83 23 149/79 (102) 94 06/15/20 08:00 23 149/79 Mechanical Ventilator 85 06/15/20 08:00 23 Mechanical Ventilator 85 06/15/20 08:00 85 06/15/20 07:35 93 22 85 06/15/20 07:00 94 23 136/82 (100) 94 06/15/20 07:00 23 136/82 Mechanical Ventilator 85 06/15/20 07:00 25 85 06/15/20 06:30 106 16 06/15/20 06:00 99.7 106 25 164/86 (112) 97 06/15/20 06:00 25 164/86 Mechanical Ventilator 85 06/15/20 06:00 25 Mechanical Ventilator 85 06/15/20 05:00 109 23 173/87 (115) 96 06/15/20 05:00 23 173/87 Mechanical Ventilator 85 06/15/20 05:00 23 Mechanical Ventilator 85 06/15/20 04:00 104 06/15/20 04:00 104 21 152/80 (104) 97 06/15/20 04:00 18 128/85 Mechanical Ventilator 85 06/15/20 04:00 21 85 06/15/20 04:00 Mechanical Ventilator Mechanical Ventilator 06/15/20 03:15 85 20 85 06/15/20 03:00 81 18 128/85 (99) 97 06/15/20 03:00 18 128/85 Mechanical Ventilator 85 06/15/20 03:00 18 85 06/15/20 02:00 18 128/83 Mechanical Ventilator 85 06/15/20 02:00 18 Mechanical Ventilator 85 06/15/20 02:00 79 18 128/83 (98) 97 06/15/20 01:00 22 139/87 Mechanical Ventilator 85 06/15/20 01:00 22 Mechanical Ventilator 85 06/15/20 01:00 87 22 139/87 (104) 95 06/15/20 00:00 20 149/91 Mechanical Ventilator 85 06/15/20 00:00 22 Mechanical Ventilator 85 06/15/20 00:00 99.8 95 20 149/91 (110) 96 06/15/20 00:00 Mechanical Ventilator Mechanical Ventilator 06/14/20 23:37 99 21 85 06/14/20 23:00 104 21 150/90 (110) 95 06/14/20 23:00 21 150/90 Mechanical Ventilator 85 06/14/20 23:00 21 Mechanical Ventilator 85 06/14/20 22:00 92 20 133/102 (112) 91 06/14/20 22:00 20 133/102 Mechanical Ventilator 85 06/14/20 21:00 82 23 138/80 (99) 98 06/14/20 21:00 23 138/80 Mechanical Ventilator 85 06/14/20 21:00 23 Mechanical Ventilator 85 06/14/20 20:00 73 16 129/81 (97) 99 06/14/20 20:00 Mechanical Ventilator Mechanical Ventilator 06/14/20 20:00 16 129/81 Mechanical Ventilator 85 06/14/20 20:00 16 Mechanical Ventilator 85 06/14/20 20:00 73 06/14/20 19:54 85 19 85 06/14/20 19:29 22 125/85 96 06/14/20 19:00 85 20 125/85 (98) 94 06/14/20 19:00 21 Mechanical Ventilator 85 06/14/20 19:00 21 135/83 Mechanical Ventilator 85 06/14/20 18:30 85 20 140/83 (102) 95 06/14/20 18:00 21 Mechanical Ventilator 85 06/14/20 18:00 21 140/83 Mechanical Ventilator 85 06/14/20 18:00 92 21 133/84 (100) 94 06/14/20 17:30 94 29 127/59 (81) 97 06/14/20 17:00 97 22 143/82 (102) 93 06/14/20 17:00 24 Mechanical Ventilator 85 06/14/20 17:00 21 139/82 Mechanical Ventilator 85 06/14/20 16:00 Mechanical Ventilator Mechanical Ventilator 06/14/20 16:00 24 Mechanical Ventilator 85 06/14/20 16:00 22 139/86 Mechanical Ventilator 85 06/14/20 16:00 98.2 81 15 120/81 (94) 98 06/14/20 16:00 97 06/14/20 15:30 72 16 121/78 (92) 100 06/14/20 15:25 89 20 90 06/14/20 15:00 78 19 122/79 (93) 100 06/14/20 15:00 21 Mechanical Ventilator 85 06/14/20 15:00 19 121/78 Mechanical Ventilator 85 06/14/20 14:30 74 18 122/77 (92) 100 06/14/20 14:00 23 Mechanical Ventilator 85 06/14/20 14:00 23 125/77 Mechanical Ventilator 85 06/14/20 14:00 84 22 125/77 (93) 95 Labs: Laboratory Tests 06/15/20 04:40: White Blood Count 18.2H, Red Blood Count 4.65, Hemoglobin 14.3, Hematocrit 42.3, Mean Corpuscular Volume 91, Mean Corpuscular Hemoglobin 30.9, Mean Corpuscular Hemoglobin Concent 33.9, Red Cell Distribution Width 12.7, Platelet Count 293, Mean Platelet Volume 7.7, Neutrophils (%) (Auto) , Lymphocytes (%) (Auto) , Monocytes (%) (Auto) , Eosinophils (%) (Auto) , Basophils (%) (Auto) , Differential Total Cells Counted 100, Neutrophils % (Manual) 91H, Lymphocytes % (Manual) 4L, Monocytes % (Manual) 5, Eosinophils % (Manual) 0, Basophils % (Manual) 0, Band Neutrophils 0, Platelet Estimate Adequate, Platelet Morphology Normal, Red Blood Cell Morphology Normal, Sodium Level 146H, Potassium Level 5.2H, Chloride Level 112H, Carbon Dioxide Level 27, Anion Gap 7, Blood Urea Nitrogen 35H, Creatinine 1.4H, Estimat Glomerular Filtration Rate 49.6, Glucose Level 175H, Calcium Level 8.7, Total Bilirubin 0.4, Direct Bilirubin 0.2, Aspartate Amino Transf (AST/SGOT) 146H, Alanine Aminotransferase (ALT/SGPT) 70, Alkaline Phosphatase 95, Total Protein 8.2, Albumin 2.4L, Globulin 5.8, Albumin/Globulin Ratio 0.4L Objective: deferred due to COVID Accucheck: 157 Robinson Bolton MD Jun 15, 2020 13:08
[2020-06-15] MEDS: MIDAZOLAM FOR DRIP IV SCH (15:00)
[2020-06-15] MEDS: NS IV SCH (15:00)
[2020-06-15] MEDS: Maintenance Dose:Remdesivir 100mg/NS 230ml x 4 Doses IV SCH ×2 (16:08)
[2020-06-16] VITALS (28 sets, daily range): BP systolic 92–179; BP diastolic 59–99
[2020-06-16] MEDS: MIDAZOLAM FOR DRIP IV SCH ×2 (06:00→23:00)
[2020-06-16] MEDS: NS IV SCH ×2 (06:00→23:00)
[2020-06-16 06:43] LABS: ALBUMIN 2.7 G/DL (3.4-5.0); ALBUMIN/GLOBULIN RATIO 0.4 (1.0-2.7); BILIRUBIN,DIRECT 0.5 MG/DL (0.0-0.3); CALCIUM 8.8 MG/DL (8.5-10.1); CREATININE 1.7 MG/DL (0.55-1.30); POTASSIUM 5.1 MMOL/L (3.5-5.1)
[2020-06-16] MEDS ORDERED: dilTIAZem Premix 125mg/125ml 125 ML IVPB SCH (08:30)
--- NOTE | 2020-06-16 08:40 | General Progress Note ---
Subjective ROS Limited/Unobtainable: No Constitutional: Reports: malaise, weakness HEENT: Reports: no symptoms Cardiovascular: Reports: no symptoms Respiratory: Reports: no symptoms Gastrointestinal/Abdominal: Reports: difficulty swallowing Genitourinary: Reports: no symptoms Neurologic/Psychiatric: Reports: no symptoms Endocrine: Reports: no symptoms Hematologic/Lymphatic: Reports: no symptoms Allergies: Coded Allergies: No Known Allergies (Unverified , 06/11/20) All Systems: reviewed and negative except above Subjective no events. on the vent. fio2 50%. elevated Na noted. Cr elevated. Objective Last 24 Hour Vital Signs Date Time Temp Pulse Resp B/P (MAP) Pulse Ox O2 Delivery O2 Flow Rate FiO2 06/16/20 08:00 161 29 136/83 (100) 94 06/16/20 08:00 Mechanical Ventilator Mechanical Ventilator 06/16/20 07:00 164 31 149/80 (103) 95 06/16/20 07:00 31 149/80 Mechanical Ventilator 50 06/16/20 07:00 31 Mechanical Ventilator 50 06/16/20 06:30 154 31 06/16/20 06:14 103.0 06/16/20 06:00 31 158/79 Mechanical Ventilator 50 06/16/20 06:00 20 Mechanical Ventilator 50 06/16/20 06:00 154 31 158/79 (105) 87 06/16/20 05:00 30 167/82 Mechanical Ventilator 50 06/16/20 05:00 30 Mechanical Ventilator 50 06/16/20 05:00 147 30 167/82 (110) 96 06/16/20 04:00 147 28 174/80 (111) 96 06/16/20 04:00 28 174/80 Mechanical Ventilator 50 06/16/20 04:00 28 50 06/16/20 04:00 Mechanical Ventilator Mechanical Ventilator 06/16/20 04:00 147 06/16/20 03:30 144 30 177/77 (110) 96 06/16/20 03:00 30 177/77 Mechanical Ventilator 50 06/16/20 03:00 30 50 06/16/20 03:00 134 28 166/99 (121) 95 06/16/20 02:59 129 29 50 06/16/20 02:00 133 29 163/73 (103) 89 06/16/20 02:00 29 163/73 Mechanical Ventilator 50 06/16/20 02:00 29 50 06/16/20 01:00 27 179/86 Mechanical Ventilator 50 06/16/20 01:00 27 Mechanical Ventilator 50 06/16/20 01:00 140 27 179/86 (117) 98 06/16/20 00:00 131 25 172/83 (112) 100 06/16/20 00:00 Mechanical Ventilator Mechanical Ventilator 06/16/20 00:00 25 172/83 Mechanical Ventilator 50 06/16/20 00:00 25 Mechanical Ventilator 50 06/15/20 23:48 138 23 50 06/15/20 23:00 131 18 177/85 (115) 100 06/15/20 23:00 18 177/85 Mechanical Ventilator 50 06/15/20 23:00 18 06/15/20 22:00 132 18 151/89 (109) 100 06/15/20 22:00 18 151/89 Mechanical Ventilator 50 06/15/20 22:00 18 Mechanical Ventilator 50 06/15/20 21:30 18 161/88 Mechanical Ventilator 50 06/15/20 21:30 18 161/88 Mechanical Ventilator 50 06/15/20 21:00 18 151/89 Mechanical Ventilator 50 06/15/20 21:00 18 50 06/15/20 21:00 19 06/15/20 21:00 127 19 179/84 (115) 100 06/15/20 20:00 98.9 117 20 168/89 (115) 100 06/15/20 20:00 20 168/89 Mechanical Ventilator 50 06/15/20 20:00 20 50 06/15/20 20:00 Mechanical Ventilator Mechanical Ventilator 06/15/20 20:00 117 06/15/20 19:54 104 18 50 06/15/20 19:00 21 133/87 Mechanical Ventilator 50 06/15/20 19:00 21 Mechanical Ventilator 50 06/15/20 19:00 97 21 133/87 (102) 100 06/15/20 18:00 21 139/86 Mechanical Ventilator 50 06/15/20 18:00 21 Mechanical Ventilator 50 06/15/20 18:00 96 21 139/86 (103) 100 06/15/20 17:00 20 152/84 Mechanical Ventilator 50 06/15/20 17:00 22 Mechanical Ventilator 50 06/15/20 17:00 96 23 152/84 (106) 95 06/15/20 16:00 98.6 88 20 140/88 (105) 100 06/15/20 16:00 Mechanical Ventilator Mechanical Ventilator 06/15/20 16:00 21 140/88 Mechanical Ventilator 50 06/15/20 16:00 21 Mechanical Ventilator 50 06/15/20 16:00 88 06/15/20 15:46 100 23 50 06/15/20 15:00 21 158/82 Mechanical Ventilator 65 06/15/20 15:00 21 Mechanical Ventilator 65 06/15/20 15:00 103 21 158/82 (107) 99 06/15/20 14:00 23 169/84 Mechanical Ventilator 65 06/15/20 14:00 23 Mechanical Ventilator 65 06/15/20 14:00 99 21 173/84 (113) 98 06/15/20 13:00 21 131/82 Mechanical Ventilator 65 06/15/20 13:00 22 Mechanical Ventilator 65 06/15/20 13:00 94 20 131/82 (98) 99 06/15/20 12:00 65 06/15/20 12:00 90 06/15/20 12:00 97.8 83 21 134/80 (98) 98 06/15/20 12:00 21 134/80 Mechanical Ventilator 85 06/15/20 12:00 22 Mechanical Ventilator 85 06/15/20 12:00 Mechanical Ventilator Mechanical Ventilator 06/15/20 11:31 84 23 65 06/15/20 11:00 16 134/79 Mechanical Ventilator 85 06/15/20 11:00 16 Mechanical Ventilator 85 06/15/20 11:00 78 20 134/79 (97) 96 06/15/20 10:30 79 21 138/71 (93) 94 06/15/20 10:00 81 23 137/80 (99) 94 06/15/20 10:00 22 137/80 Mechanical Ventilator 85 06/15/20 10:00 22 Mechanical Ventilator 85 06/15/20 09:00 80 22 141/82 (101) 94 06/15/20 09:00 23 144/88 Mechanical Ventilator 85 06/15/20 09:00 23 Mechanical Ventilator 85 Intake and Output 06/15/20 06/16/20 19:00 07:00 Intake Total 1942 ml 1764 ml Output Total 1475 ml 1500 ml Balance 467 ml 264 ml Intake Free Water 30 ml IV Total 1702 ml 1494 ml Tube Feeding 240 ml 240 ml Output Urine Total 1475 ml 1500 ml Laboratory Tests 06/16/20 05:30: Sodium Level 150H, Potassium Level 5.1, Chloride Level 113H, Carbon Dioxide Level 29, Anion Gap 9, Blood Urea Nitrogen 37H, Creatinine 1.7H, Estimat Glomerular Filtration Rate 39.5, Glucose Level 196H, Calcium Level 8.8, Total Bilirubin 1.0, Direct Bilirubin 0.5H, Aspartate Amino Transf (AST/SGOT) 108H, Alanine Aminotransferase (ALT/SGPT) 85H, Alkaline Phosphatase 114, Total Protein 8.9H, Albumin 2.7L, Globulin 6.2, Albumin/Globulin Ratio 0.4L Height (Feet): 5 Height (Inches): 6.00 Weight (Pounds): 160 Objective deferred due to covid+ Assessment/Plan Problem List: (1) Pneumonia due to COVID-19 virus ICD Codes: U07.1 - COVID-19; J12.89 - Other viral pneumonia (2) Hypoxia ICD Codes: R09.02 - Hypoxemia SNOMED: 078615324 (3) Elevated d-dimer ICD Codes: R79.89 - Other specified abnormal findings of blood chemistry SNOMED: 494672884 (4) JIMENA (acute kidney injury) ICD Codes: N17.9 - Acute kidney failure, unspecified SNOMED: 78949368, 3471257 (5) Pneumonia ICD Codes: J18.9 - Pneumonia, unspecified organism SNOMED: 183770214 Status: stable, not improved Assessment/Plan: a/ resp failure pna due to covid arf rhabdo ?DM venous duplex neg p/ vent resp rx steroids/remdesivir monitor bs water flushes dvt/stress ulcer prophylaxis critical and guarded Karel Key MD Jun 16, 2020 08:40
[2020-06-16] MEDS: Enoxaparin 40mg Inj SUBQ SCH (09:34)
[2020-06-16] MEDS: fentaNYL 2500mcg/NS 250ml 250 ML IV SCH ×2 (10:00→23:02)
[2020-06-16] MEDS: Maintenance Dose:Remdesivir 100mg/NS 230ml x 4 Doses IV SCH ×2 (16:27)
--- NOTE | 2020-06-16 19:06 | Critical Care Progress Note ---
Assessment/Plan Assessment/Plan IMPRESSION: 1. Pneumonia, COVID. 2. Elevated creatine kinase, mild rhabdo. 3. Elevated creatinine with acute renal failure. 4. HIV, currently nondetectable. 5. metabolic acidosis 6. hypoxemia. 7. Acute hypoxemic respiratory failure 8. hypernatremia 9. leukocytosis 10. SVT RECOMMENDATION: Cardizem drip; cardiology called. ID follow up. IV hydration. Empiric antibiotics as is and Decadron. DVT prophylaxis. Monitor clinically for changes. dietary and NGT feeds supportive care sedation D5w and free water; monitor sodium cannot wean at present remains critical at present try to decrease fio2 as able message left for mother medications/laboratory data/nursing notes/ICU care reviewed in detail note reviewed and edited care discussed with RN and RT ICU time spent >40 minutes Critical Care - Subjective Interval Events: doing poorly on higher oxygen acidotic tachycardic when seen ROS Limited/Unobtainable: Yes Condition: critical EKG Rhythm: Sinus Tachycardia Residuals: minimal Tube Feeding Tolerated: yes I&O: Intake and Output 06/15/20 06/16/20 19:00 07:00 Intake Total 1942 ml 1764 ml Output Total 1475 ml 1500 ml Balance 467 ml 264 ml Intake Free Water 30 ml IV Total 1702 ml 1494 ml Tube Feeding 240 ml 240 ml Output Urine Total 1475 ml 1500 ml Critical Care - Objective ET-Tube: 7.0 ET Position: 24 Last 24 Hour Vital Signs Date Time Temp Pulse Resp B/P (MAP) Pulse Ox O2 Delivery O2 Flow Rate FiO2 06/16/20 19:00 135 25 121/79 (93) 100 06/16/20 19:00 28 114/76 Mechanical Ventilator 80 06/16/20 19:00 28 Mechanical Ventilator 80 06/16/20 18:00 28 115/78 Mechanical Ventilator 80 06/16/20 18:00 28 Mechanical Ventilator 80 06/16/20 18:00 120 28 115/78 (90) 100 06/16/20 17:00 28 108/70 Mechanical Ventilator 80 06/16/20 17:00 28 Mechanical Ventilator 80 06/16/20 17:00 118 28 108/71 (83) 100 06/16/20 16:00 117 06/16/20 16:00 28 112/73 Mechanical Ventilator 80 06/16/20 16:00 28 Mechanical Ventilator 80 06/16/20 16:00 80 06/16/20 16:00 98.8 114 31 107/61 (76) 100 06/16/20 16:00 Mechanical Ventilator Mechanical Ventilator 06/16/20 15:28 126 28 100 06/16/20 15:00 128 28 96/67 (77) 100 06/16/20 15:00 28 96/67 Mechanical Ventilator 80 06/16/20 15:00 28 Mechanical Ventilator 80 06/16/20 14:00 28 97/71 Mechanical Ventilator 100 06/16/20 14:00 28 Mechanical Ventilator 100 06/16/20 14:00 132 28 97/71 (80) 100 06/16/20 13:00 133 25 92/74 (80) 100 06/16/20 13:00 28 92/74 Mechanical Ventilator 100 06/16/20 13:00 28 Mechanical Ventilator 100 06/16/20 12:00 100.5 141 28 94/62 (73) 100 06/16/20 12:00 100 06/16/20 12:00 136 06/16/20 12:00 28 94/62 Mechanical Ventilator 100 06/16/20 12:00 28 Mechanical Ventilator 100 06/16/20 12:00 Mechanical Ventilator Mechanical Ventilator 06/16/20 11:17 145 28 100 06/16/20 11:00 147 27 101/59 (73) 89 06/16/20 11:00 26 101/59 Mechanical Ventilator 80 06/16/20 11:00 26 Mechanical Ventilator 80 06/16/20 11:00 147 27 101/59 (73) 89 06/16/20 10:30 101.4 151 27 100/68 (79) 97 06/16/20 10:26 151 27 101/64 (76) 96 06/16/20 10:00 21 199/74 Mechanical Ventilator 80 06/16/20 10:00 21 Mechanical Ventilator 80 06/16/20 10:00 102.2 155 28 103/61 (75) 93 06/16/20 09:30 159 30 119/74 (89) 92 06/16/20 09:00 103.0 161 30 123/75 (91) 92 06/16/20 09:00 30 123/75 Mechanical Ventilator 80 06/16/20 09:00 30 Mechanical Ventilator 80 06/16/20 08:00 50 06/16/20 08:00 161 29 136/83 (100) 94 06/16/20 08:00 Mechanical Ventilator Mechanical Ventilator 06/16/20 08:00 164 06/16/20 08:00 31 136/83 Mechanical Ventilator 50 06/16/20 08:00 31 Mechanical Ventilator 50 06/16/20 07:49 162 31 50 06/16/20 07:00 164 31 149/80 (103) 95 06/16/20 07:00 31 149/80 Mechanical Ventilator 50 06/16/20 07:00 31 Mechanical Ventilator 50 06/16/20 06:30 154 31 06/16/20 06:14 103.0 06/16/20 06:00 31 158/79 Mechanical Ventilator 50 06/16/20 06:00 20 Mechanical Ventilator 50 06/16/20 06:00 154 31 158/79 (105) 87 06/16/20 05:00 30 167/82 Mechanical Ventilator 50 06/16/20 05:00 30 Mechanical Ventilator 50 06/16/20 05:00 147 30 167/82 (110) 96 06/16/20 04:00 147 28 174/80 (111) 96 06/16/20 04:00 28 174/80 Mechanical Ventilator 50 06/16/20 04:00 28 50 06/16/20 04:00 Mechanical Ventilator Mechanical Ventilator 06/16/20 04:00 147 06/16/20 03:30 144 30 177/77 (110) 96 06/16/20 03:00 30 177/77 Mechanical Ventilator 50 06/16/20 03:00 30 50 06/16/20 03:00 134 28 166/99 (121) 95 06/16/20 02:59 129 29 50 06/16/20 02:00 133 29 163/73 (103) 89 06/16/20 02:00 29 163/73 Mechanical Ventilator 50 06/16/20 02:00 29 50 06/16/20 01:00 27 179/86 Mechanical Ventilator 50 06/16/20 01:00 27 Mechanical Ventilator 50 06/16/20 01:00 140 27 179/86 (117) 98 06/16/20 00:00 131 25 172/83 (112) 100 06/16/20 00:00 Mechanical Ventilator Mechanical Ventilator 06/16/20 00:00 25 172/83 Mechanical Ventilator 50 06/16/20 00:00 25 Mechanical Ventilator 50 06/15/20 23:48 138 23 50 06/15/20 23:00 131 18 177/85 (115) 100 06/15/20 23:00 18 177/85 Mechanical Ventilator 50 06/15/20 23:00 18 06/15/20 22:00 132 18 151/89 (109) 100 06/15/20 22:00 18 151/89 Mechanical Ventilator 50 06/15/20 22:00 18 Mechanical Ventilator 50 06/15/20 21:30 18 161/88 Mechanical Ventilator 50 06/15/20 21:30 18 161/88 Mechanical Ventilator 50 06/15/20 21:00 18 151/89 Mechanical Ventilator 50 06/15/20 21:00 18 50 06/15/20 21:00 19 06/15/20 21:00 127 19 179/84 (115) 100 06/15/20 20:00 98.9 117 20 168/89 (115) 100 06/15/20 20:00 20 168/89 Mechanical Ventilator 50 06/15/20 20:00 20 50 06/15/20 20:00 Mechanical Ventilator Mechanical Ventilator 06/15/20 20:00 117 06/15/20 19:54 104 18 50 Labs: Laboratory Tests 06/16/20 05:30: Sodium Level 150H, Potassium Level 5.1, Chloride Level 113H, Carbon Dioxide Level 29, Anion Gap 9, Blood Urea Nitrogen 37H, Creatinine 1.7H, Estimat Glomerular Filtration Rate 39.5, Glucose Level 196H, Calcium Level 8.8, Total Bilirubin 1.0, Direct Bilirubin 0.5H, Aspartate Amino Transf (AST/SGOT) 108H, Alanine Aminotransferase (ALT/SGPT) 85H, Alkaline Phosphatase 114, Total Protein 8.9H, Albumin 2.7L, Globulin 6.2, Albumin/Globulin Ratio 0.4L 06/16/20 09:23: Arterial Blood pH 7.207*L, Arterial Blood Partial Pressure CO2 68.6*H, Arterial Blood Partial Pressure O2 66.6L, Arterial Blood HCO3 26.6H, Arterial Blood Oxygen Saturation 89.7*L, Arterial Blood Base Excess -3.1L, Manan Test Positive 06/16/20 14:25: Arterial Blood pH 7.226*L, Arterial Blood Partial Pressure CO2 60.7*H, Arterial Blood Partial Pressure O2 182.6H, Arterial Blood HCO3 24.6, Arterial Blood Oxyge n Saturation 98.6, Arterial Blood Base Excess -4.2L, Manan Test Positive Objective: deferred due to COVID Micro: Microbiology Date/Time Source Procedure Growth Status 06/15/20 07:40 Rectum Received Accucheck: 157 Robinson Bolton MD Jun 16, 2020 19:06
[2020-06-17] VITALS (26 sets, daily range): BP systolic 93–176; BP diastolic 74–98
--- NOTE | 2020-06-17 03:00 | Consultation ---
DATE OF CONSULTATION: 06/16/2020 CARDIOLOGY CONSULTATION CONSULTING PHYSICIAN: Olegario Olguin M.D. REQUESTING PHYSICIAN: Karel Key M.D. REASON FOR CONSULTATION: Tachycardia. HISTORY OF PRESENT ILLNESS: This is a 44-year-old male, who was admitted to the hospital several days ago with respiratory failure due to COVID-19 pneumonia complicated by hypoxia. The patient has been on antiviral, anticoagulant, and steroid therapies. Today, he developed rapid heart rates. Cardiology consultation has been requested. PAST MEDICAL HISTORY: 1. HIV/AIDS with undetectable viral load. 2. Type 2 diabetes mellitus. 3. Obesity. MEDICATIONS: Reviewed. ALLERGIES: None. FAMILY HISTORY: Noncontributory. SOCIAL HISTORY: Negative for smoking, alcohol, or substance abuse. REVIEW OF SYSTEMS: Not obtainable. PHYSICAL EXAMINATION: Orally intubated, sedated, noncommunicative at this time. Temperature 103, blood pressure 123/75, heart rate 161, respiratory rate 30, and oxygen saturation on 80% FiO2 is 92%. The patient is not examined due to COVID-19 pneumonia. DIAGNOSTIC DATA: Electrocardiogram on June 11, 2020 revealed sinus tachycardia with possible septal infarction of indeterminate age. Chest x-ray yesterday revealed cardiomegaly and bilateral mid and lower lung infiltrates, respiratory failure, hypoxic, COVID-19 pneumonia, sinus tachycardia, paroxysmal supraventricular tachycardia, and HIV positive. PLAN: 1. Antiviral, anticoagulant, and steroid therapy. 2. Monitor acid-base parameters. 3. Discontinue diltiazem. 4. Consider beta-hipolito for sustained sinus tachycardia. 5. DVT prophylaxis. 6. Echocardiogram. 7. Check natriuretic peptide assay. 8. Consider diuresis. Olegario Olguin M.D. DR: [place] JOB#: [id number] CC:
[2020-06-17 06:05] LABS: HEMATOCRIT 44.3 % (37.0-47.0); HEMOGLOBIN 14.3 G/DL (12.0-16.0); MEAN CORPUSCULAR VOLUME 96 FL (80-99); PLATELET COUNT 191 K/UL (150-450); RED CELL DISTRIBUTION WIDTH 14.3 % (11.6-14.8)
--- NOTE | 2020-06-17 06:51 | Critical Care Progress Note ---
Assessment/Plan Assessment/Plan IMPRESSION: 1. Pneumonia, COVID. 2. Elevated creatine kinase 3. Acute renal failure. 4. HIV, currently nondetectable. 5. metabolic acidosis 6. hypoxemia. 7. Acute hypoxemic respiratory failure 8. hypernatremia 9. leukocytosis 10. SVT improved RECOMMENDATION: Cardizem drip off; cardiology noted. ID follow up. IV hydration. On Decadron. DVT prophylaxis. Monitor clinically for changes. dietary and NGT feeds supportive care sedation for now monitor lytes cannot wean at present remains critical at present try to decrease fio2 as able- currently on 80% message left for mother- awaiting call back medications/laboratory data/nursing notes/ICU care reviewed in detail note reviewed and edited care discussed with RN and RT ICU time spent >40 minutes Critical Care - Subjective ROS Limited/Unobtainable: Yes Condition: critical EKG Rhythm: Sinus Tachycardia Residuals: minimal Tube Feeding Tolerated: yes I&O: Intake and Output 06/16/20 06/17/20 19:00 07:00 Intake Total 1553.165 ml 792 ml Output Total 900 ml 348 ml Balance 653.165 ml 444 ml IV Total 873.165 ml 192 ml Tube Feeding 680 ml 600 ml Output Urine Total 900 ml 348 ml # Bowel Movements 1 Critical Care - Objective ET-Tube: 7.0 ET Position: 24 Last 24 Hour Vital Signs Date Time Temp Pulse Resp B/P (MAP) Pulse Ox O2 Delivery O2 Flow Rate FiO2 06/17/20 06:30 133 29 06/17/20 05:00 112 29 128/78 (95) 100 06/17/20 05:00 29 Mechanical Ventilator 80 06/17/20 04:00 80 06/17/20 04:00 98.2 94 24 93/78 (83) 99 06/17/20 04:00 24 Mechanical Ventilator 80 06/17/20 04:00 98 06/17/20 04:00 Mechanical Ventilator Mechanical Ventilator 06/17/20 03:22 97 27 60 06/17/20 03:00 29 Mechanical Ventilator 80 06/17/20 03:00 97 29 120/82 (95) 100 06/17/20 02:00 103 28 121/79 (93) 100 06/17/20 02:00 28 121/79 Mechanical Ventilator 80 06/17/20 02:00 28 Mechanical Ventilator 80 06/17/20 01:00 30 104/80 Mechanical Ventilator 80 06/17/20 01:00 30 Mechanical Ventilator 80 06/17/20 01:00 110 30 104/80 (88) 100 06/17/20 00:00 Mechanical Ventilator Mechanical Ventilator 06/17/20 00:00 80 06/17/20 00:00 32 116/74 Mechanical Ventilator 80 06/17/20 00:00 32 Mechanical Ventilator 80 06/17/20 00:00 98.1 118 32 116/74 (88) 100 06/17/20 00:00 122 06/16/20 23:02 28 113/74 Non-Rebreather 15.0 80 06/16/20 23:02 26 Mechanical Ventilator 80 06/16/20 23:00 126 26 113/74 (87) 100 06/16/20 23:00 28 15.0 80 06/16/20 22:56 126 27 80 06/16/20 22:00 135 22 106/79 (88) 100 06/16/20 22:00 22 Mechanical Ventilator 80 06/16/20 21:00 139 26 113/74 (87) 100 06/16/20 21:00 26 Mechanical Ventilator 80 06/16/20 20:00 80 06/16/20 20:00 101.3 141 28 119/75 (90) 100 06/16/20 20:00 Mechanical Ventilator Mechanical Ventilator 06/16/20 20:00 28 Mechanical Ventilator 80 06/16/20 20:00 138 06/16/20 19:05 141 28 80 06/16/20 19:00 135 25 121/79 (93) 100 06/16/20 19:00 28 114/76 Mechanical Ventilator 80 06/16/20 19:00 28 Mechanical Ventilator 80 06/16/20 18:00 28 115/78 Mechanical Ventilator 80 06/16/20 18:00 28 Mechanical Ventilator 80 06/16/20 18:00 120 28 115/78 (90) 100 06/16/20 17:00 28 108/70 Mechanical Ventilator 80 06/16/20 17:00 28 Mechanical Ventilator 80 06/16/20 17:00 118 28 108/71 (83) 100 06/16/20 16:00 117 06/16/20 16:00 28 112/73 Mechanical Ventilator 80 06/16/20 16:00 28 Mechanical Ventilator 80 06/16/20 16:00 80 06/16/20 16:00 98.8 114 31 107/61 (76) 100 06/16/20 16:00 Mechanical Ventilator Mechanical Ventilator 06/16/20 15:28 126 28 100 06/16/20 15:00 128 28 96/67 (77) 100 06/16/20 15:00 28 96/67 Mechanical Ventilator 80 06/16/20 15:00 28 Mechanical Ventilator 80 06/16/20 14:00 28 97/71 Mechanical Ventilator 100 06/16/20 14:00 28 Mechanical Ventilator 100 06/16/20 14:00 132 28 97/71 (80) 100 06/16/20 13:00 133 25 92/74 (80) 100 06/16/20 13:00 28 92/74 Mechanical Ventilator 100 06/16/20 13:00 28 Mechanical Ventilator 100 06/16/20 12:00 100.5 141 28 94/62 (73) 100 06/16/20 12:00 100 06/16/20 12:00 136 06/16/20 12:00 28 94/62 Mechanical Ventilator 100 06/16/20 12:00 28 Mechanical Ventilator 100 06/16/20 12:00 Mechanical Ventilator Mechanical Ventilator 06/16/20 11:17 145 28 100 06/16/20 11:00 147 27 101/59 (73) 89 06/16/20 11:00 26 101/59 Mechanical Ventilator 80 06/16/20 11:00 26 Mechanical Ventilator 80 06/16/20 11:00 147 27 101/59 (73) 89 06/16/20 10:30 101.4 151 27 100/68 (79) 97 06/16/20 10:26 151 27 101/64 (76) 96 06/16/20 10:00 21 199/74 Mechanical Ventilator 80 06/16/20 10:00 21 Mechanical Ventilator 80 06/16/20 10:00 102.2 155 28 103/61 (75) 93 06/16/20 09:30 159 30 119/74 (89) 92 06/16/20 09:00 103.0 161 30 123/75 (91) 92 06/16/20 09:00 30 123/75 Mechanical Ventilator 80 06/16/20 09:00 30 Mechanical Ventilator 80 06/16/20 08:00 50 06/16/20 08:00 161 29 136/83 (100) 94 06/16/20 08:00 Mechanical Ventilator Mechanical Ventilator 06/16/20 08:00 164 06/16/20 08:00 31 136/83 Mechanical Ventilator 50 06/16/20 08:00 31 Mechanical Ventilator 50 06/16/20 07:49 162 31 50 06/16/20 07:00 164 31 149/80 (103) 95 06/16/20 07:00 31 149/80 Mechanical Ventilator 50 06/16/20 07:00 31 Mechanical Ventilator 50 Labs: Laboratory Tests 06/16/20 09:23: Arterial Blood pH 7.207*L, Arterial Blood Partial Pressure CO2 68.6*H, Arterial Blood Partial Pressure O2 66.6L, Arterial Blood HCO3 26.6H, Arterial Blood Oxygen Saturation 89.7*L, Arterial Blood Base Excess -3.1L, Manan Test Positive 06/16/20 14:25: Arterial Blood pH 7.226*L, Arterial Blood Partial Pressure CO2 60.7*H, Arterial Blood Partial Pressure O2 182.6H, Arterial Blood HCO3 24.6, Arterial Blood Oxygen Saturation 98.6, Arterial Blood Base Excess -4.2L, Manan Test Positive 06/17/20 05:21: White Blood Count 13.0H, Red Blood Count 4.60, Hemoglobin 14.3, Hematocrit 44.3, Mean Corpuscular Volume 96, Mean Corpuscular Hemoglobin 31.0, Mean Corpuscular Hemoglobin Concent 32.2, Red Cell Distribution Width 14.3, Platelet Count 191, Mean Platelet Volume 7.5, Neutrophils (%) (Auto) , Lymphocytes (%) (Auto) , Monocytes (%) (Auto) , Eosinophils (%) (Auto) , Basophils (%) (Auto) , Neutrophils % (Manual) [Pending], Lymphocytes % (Manual) [Pending], Platelet Estimate [Pending], Platelet Morphology [Pending], Sodium Level [Pending], Potassium Level [Pending], Chloride Level [Pending], Carbon Dioxide Level [Pending], Blood Urea Nitrogen [Pending], Creatinine [Pending], Estimat Glomerular Filtration Rate [Pending], Glucose Level [Pending], Calcium Level [Pending], Total Bilirubin [Pending], Direct Bilirubin [Pending], Aspartate Amino Transf (AST/SGOT) [Pending], Alanine Aminotransferase (ALT/SGPT) [Pending], Alkaline Phosphatase [Pending], Pro-B-Type Natriuretic Peptide [Pending], Total Protein [Pending], Albumin [Pending], Globulin [Pending] Objective: deferred due to COVID Micro: Microbiology Date/Time Source Procedure Growth Status 06/15/20 07:40 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 Complete 06/15/20 07:40 Nasal Nares MRSA Culture - Final NO METHICILLIN RESISTANT STAPH AUREUS... Complete Accucheck: 157 Robinson Boltno MD Jun 17, 2020 06:51
--- NOTE | 2020-06-17 07:50 | General Progress Note ---
Subjective ROS Limited/Unobtainable: No Constitutional: Reports: malaise, weakness HEENT: Reports: no symptoms Cardiovascular: Reports: no symptoms Respiratory: Reports: cough Gastrointestinal/Abdominal: Reports: no symptoms Genitourinary: Reports: no symptoms Neurologic/Psychiatric: Reports: no symptoms Endocrine: Reports: no symptoms Hematologic/Lymphatic: Reports: no symptoms Allergies: Coded Allergies: No Known Allergies (Unverified , 06/11/20) All Systems: reviewed and negative except above Subjective tachycardic. sedation weaned down earlier. awake. on 80% fio2. on water. Objective Last 24 Hour Vital Signs Date Time Temp Pulse Resp B/P (MAP) Pulse Ox O2 Delivery O2 Flow Rate FiO2 06/17/20 07:31 138 29 157/85 (109) 100 06/17/20 07:00 138 29 157/85 (109) 100 06/17/20 07:00 29 157/85 Mechanical Ventilator 80 06/17/20 07:00 29 80 06/17/20 06:30 133 29 06/17/20 06:00 27 175/84 Mechanical Ventilator 80 06/17/20 06:00 28 80 06/17/20 06:00 121 27 175/84 (114) 100 06/17/20 05:00 112 29 128/78 (95) 100 06/17/20 05:00 29 128/78 Mechanical Ventilator 80 06/17/20 05:00 29 Mechanical Ventilator 80 06/17/20 04:00 80 06/17/20 04:00 98.2 94 24 93/78 (83) 99 06/17/20 04:00 24 93/78 Mechanical Ventilator 80 06/17/20 04:00 24 Mechanical Ventilator 80 06/17/20 04:00 98 06/17/20 04:00 Mechanical Ventilator Mechanical Ventilator 06/17/20 03:22 97 27 60 06/17/20 03:00 29 120/82 Mechanical Ventilator 80 06/17/20 03:00 29 Mechanical Ventilator 80 06/17/20 03:00 97 29 120/82 (95) 100 06/17/20 02:00 103 28 121/79 (93) 100 06/17/20 02:00 28 121/79 Mechanical Ventilator 80 06/17/20 02:00 28 Mechanical Ventilator 80 06/17/20 01:00 30 104/80 Mechanical Ventilator 80 06/17/20 01:00 30 Mechanical Ventilator 80 12/20/20 01:00 110 30 104/80 (88) 100 06/17/20 00:00 Mechanical Ventilator Mechanical Ventilator 06/17/20 00:00 80 06/17/20 00:00 32 116/74 Mechanical Ventilator 80 06/17/20 00:00 32 Mechanical Ventilator 80 06/17/20 00:00 98.1 118 32 116/74 (88) 100 06/17/20 00:00 122 06/16/20 23:02 28 113/74 Non-Rebreather 15.0 80 06/16/20 23:02 26 Mechanical Ventilator 80 06/16/20 23:00 126 26 113/74 (87) 100 06/16/20 23:00 28 15.0 80 06/16/20 22:56 126 27 80 06/16/20 22:00 135 22 106/79 (88) 100 06/16/20 22:00 22 Mechanical Ventilator 80 06/16/20 21:00 139 26 113/74 (87) 100 06/16/20 21:00 26 Mechanical Ventilator 80 06/16/20 20:00 80 06/16/20 20:00 101.3 141 28 119/75 (90) 100 06/16/20 20:00 Mechanical Ventilator Mechanical Ventilator 06/16/20 20:00 28 Mechanical Ventilator 80 06/16/20 20:00 138 06/16/20 19:05 141 28 80 06/16/20 19:00 135 25 121/79 (93) 100 06/16/20 19:00 28 114/76 Mechanical Ventilator 80 06/16/20 19:00 28 Mechanical Ventilator 80 06/16/20 18:00 28 115/78 Mechanical Ventilator 80 06/16/20 18:00 28 Mechanical Ventilator 80 06/16/20 18:00 120 28 115/78 (90) 100 06/16/20 17:00 28 108/70 Mechanical Ventilator 80 06/16/20 17:00 28 Mechanical Ventilator 80 06/16/20 17:00 118 28 108/71 (83) 100 06/16/20 16:00 117 06/16/20 16:00 28 112/73 Mechanical Ventilator 80 06/16/20 16:00 28 Mechanical Ventilator 80 06/16/20 16:00 80 06/16/20 16:00 98.8 114 31 107/61 (76) 100 06/16/20 16:00 Mechanical Ventilator Mechanical Ventilator 06/16/20 15:28 126 28 100 06/16/20 15:00 128 28 96/67 (77) 100 06/16/20 15:00 28 96/67 Mechanical Ventilator 80 06/16/20 15:00 28 Mechanical Ventilator 80 06/16/20 14:00 28 97/71 Mechanical Ventilator 100 06/16/20 14:00 28 Mechanical Ventilator 100 06/16/20 14:00 132 28 97/71 (80) 100 06/16/20 13:00 133 25 92/74 (80) 100 06/16/20 13:00 28 92/74 Mechanical Ventilator 100 06/16/20 13:00 28 Mechanical Ventilator 100 06/16/20 12:00 100.5 141 28 94/62 (73) 100 06/16/20 12:00 100 06/16/20 12:00 136 06/16/20 12:00 28 94/62 Mechanical Ventilator 100 06/16/20 12:00 28 Mechanical Ventilator 100 06/16/20 12:00 Mechanical Ventilator Mechanical Ventilator 06/16/20 11:17 145 28 100 06/16/20 11:00 147 27 101/59 (73) 89 06/16/20 11:00 26 101/59 Mechanical Ventilator 80 06/16/20 11:00 26 Mechanical Ventilator 80 06/16/20 11:00 147 27 101/59 (73) 89 06/16/20 10:30 101.4 151 27 100/68 (79) 97 06/16/20 10:26 151 27 101/64 (76) 96 06/16/20 10:00 21 199/74 Mechanical Ventilator 80 06/16/20 10:00 21 Mechanical Ventilator 80 06/16/20 10:00 102.2 155 28 103/61 (75) 93 06/16/20 09:30 159 30 119/74 (89) 92 06/16/20 09:00 103.0 161 30 123/75 (91) 92 06/16/20 09:00 30 123/75 Mechanical Ventilator 80 06/16/20 09:00 30 Mechanical Ventilator 80 06/16/20 08:00 50 06/16/20 08:00 161 29 136/83 (100) 94 06/16/20 08:00 Mechanical Ventilator Mechanical Ventilator 06/16/20 08:00 164 06/16/20 08:00 31 136/83 Mechanical Ventilator 50 06/16/20 08:00 31 Mechanical Ventilator 50 06/16/20 07:49 162 31 50 Intake and Output 06/16/20 06/17/20 19:00 07:00 Intake Total 1553.165 ml 1130 ml Output Total 900 ml 1392 ml Balance 653.165 ml -262 ml IV Total 873.165 ml 230 ml Tube Feeding 680 ml 900 ml Output Urine Total 900 ml 1392 ml # Bowel Movements 2 Laboratory Tests 06/16/20 09:23: Arterial Blood pH 7.207*L, Arterial Blood Partial Pressure CO2 68.6*H, Arterial Blood Partial Pressure O2 66.6L, Arterial Blood HCO3 26.6H, Arterial Blood Oxygen Saturation 89.7*L, Arterial Blood Base Excess -3.1L, Manan Test Positive 06/16/20 14:25: Arterial Blood pH 7.226*L, Arterial Blood Partial Pressure CO2 60.7*H, Arterial Blood Partial Pressure O2 182.6H, Arterial Blood HCO3 24.6, Arterial Blood Oxygen Saturation 98.6, Arterial Blood Base Excess -4.2L, Manan Test Positive 06/17/20 05:21: White Blood Count 13.0H, Red Blood Count 4.60, Hemoglobin 14.3, Hematocrit 44.3, Mean Corpuscular Volume 96, Mean Corpuscular Hemoglobin 31.0, Mean Corpuscular Hemoglobin Concent 32.2, Red Cell Distribution Width 14.3, Platelet Count 191, Mean Platelet Volume 7.5, Neutrophils (%) (Auto) , Lymphocytes (%) (Auto) , Monocytes (%) (Auto) , Eosinophils (%) (Auto) , Basophils (%) (Auto) , Neutrophils % (Manual) [Pending], Lymphocytes % (Manual) [Pending], Platelet Estimate [Pending], Platelet Morphology [Pending], Pro-B-Type Natriuretic Peptide [Pending] Height (Feet): 5 Height (Inches): 6.00 Weight (Pounds): 160 Objective deferred due to covid+ Assessment/Plan Problem List: (1) Pneumonia due to COVID-19 virus ICD Codes: U07.1 - COVID-19; J12.89 - Other viral pneumonia (2) Hypoxia ICD Codes: R09.02 - Hypoxemia SNOMED: 561698460 (3) Elevated d-dimer ICD Codes: R79.89 - Other specified abnormal findings of blood chemistry SNOMED: 044478456 (4) JIMENA (acute kidney injury) ICD Codes: N17.9 - Acute kidney failure, unspecified SNOMED: 71005088, 8002812 (5) Pneumonia ICD Codes: J18.9 - Pneumonia, unspecified organism SNOMED: 251037892 Status: stable, not improved Assessment/Plan: a/ resp failure pna due to covid arf rhabdo hypernatremia- on water flush. labs pending p/ vent resp rx steroids/remdesivir monitor bs water flushes start feeds sedation as needed dvt/stress ulcer prophylaxis critical and guarded Karel Key MD Jun 17, 2020 07:50
[2020-06-17] MEDS: Enoxaparin 40mg Inj SUBQ SCH (08:06)
[2020-06-17 09:32] LABS: CALCIUM 8.1 MG/DL (8.5-10.1); CREATININE 2.4 MG/DL (0.55-1.30); POTASSIUM 5.9 MMOL/L (3.5-5.1)
[2020-06-17 09:36] LABS: ALBUMIN 2.2 G/DL (3.4-5.0); ALBUMIN/GLOBULIN RATIO 0.4 (1.0-2.7); BILIRUBIN,DIRECT 0.2 MG/DL (0.0-0.3); BILIRUBIN,TOTAL 0.6 MG/DL (0.2-1.0)
--- NOTE | 2020-06-17 11:37 | Infectious Diseases Prog Note ---
Assessment/Plan Assessment/Plan A 1. COVID 19 pneumonia 2. HIV, T-cell count of 326, viral load undetectable 3. prediabetes 4. respiratory failure with hypoxemia 5. Acute renal failure P 1. Continue remdesivir 2. continue dexamethasone 3. will follow up cultures 4. continue isolation Subjective ROS Limited/Unobtainable: Yes Constitutional: Reports: fever, other - Yvyu=396.3 Allergies: Coded Allergies: No Known Allergies (Unverified , 06/11/20) Objective Last 24 Hour Vital Signs Date Time Temp Pulse Resp B/P (MAP) Pulse Ox O2 Delivery O2 Flow Rate FiO2 06/17/20 10:00 101.3 140 29 161/85 (110) 100 06/17/20 10:00 28 161/85 Endotracheal Tube 45 06/17/20 10:00 28 Endotracheal Tube 45 06/17/20 09:30 29 166/84 Endotracheal Tube 45 06/17/20 09:27 45 06/17/20 09:15 28 160/85 Endotracheal Tube 45 06/17/20 09:00 145 27 153/81 (105) 100 06/17/20 09:00 28 153/81 Endotracheal Tube 45 06/17/20 09:00 28 Endotracheal Tube 45 06/17/20 08:45 28 150/80 Endotracheal Tube 45 06/17/20 08:30 28 158/88 Endotracheal Tube 45 06/17/20 08:15 28 154/85 Endotracheal Tube 45 06/17/20 08:00 45 06/17/20 08:00 99.6 143 30 172/89 (116) 100 06/17/20 08:00 28 166/86 Endotracheal Tube 45 06/17/20 08:00 28 Endotracheal Tube 45 06/17/20 08:00 Mechanical Ventilator Mechanical Ventilator 06/17/20 08:00 141 06/17/20 07:58 145 30 60 06/17/20 07:45 28 172/89 Endotracheal Tube 45 06/17/20 07:31 138 29 157/85 (109) 100 06/17/20 07:30 28 160/82 Endotracheal Tube 45 06/17/20 07:15 28 157/80 Endotracheal Tube 45 06/17/20 07:00 138 29 157/85 (109) 100 06/17/20 07:00 29 157/85 Mechanical Ventilator 80 06/17/20 07:00 29 80 06/17/20 06:30 133 29 06/17/20 06:00 27 175/84 Mechanical Ventilator 80 06/17/20 06:00 28 80 06/17/20 06:00 121 27 175/84 (114) 100 06/17/20 05:00 112 29 128/78 (95) 100 06/17/20 05:00 29 128/78 Mechanical Ventilator 80 06/17/20 05:00 29 Mechanical Ventilator 80 06/17/20 04:00 80 06/17/20 04:00 98.2 94 24 93/78 (83) 99 06/17/20 04:00 24 93/78 Mechanical Ventilator 80 06/17/20 04:00 24 Mechanical Ventilator 80 06/17/20 04:00 98 06/17/20 04:00 Mechanical Ventilator Mechanical Ventilator 06/17/20 03:22 97 27 60 06/17/20 03:00 29 120/82 Mechanical Ventilator 80 06/17/20 03:00 29 Mechanical Ventilator 80 06/17/20 03:00 97 29 120/82 (95) 100 06/17/20 02:00 103 28 121/79 (93) 100 06/17/20 02:00 28 121/79 Mechanical Ventilator 80 06/17/20 02:00 28 Mechanical Ventilator 80 06/17/20 01:00 30 104/80 Mechanical Ventilator 80 06/17/20 01:00 30 Mechanical Ventilator 80 06/17/20 01:00 110 30 104/80 (88) 100 06/17/20 00:00 Mechanical Ventilator Mechanical Ventilator 06/17/20 00:00 80 06/17/20 00:00 32 116/74 Mechanical Ventilator 80 06/17/20 00:00 32 Mechanical Ventilator 80 06/17/20 00:00 98.1 118 32 116/74 (88) 100 06/17/20 00:00 122 06/16/20 23:02 28 113/74 Non-Rebreather 15.0 80 06/16/20 23:02 26 Mechanical Ventilator 80 06/16/20 23:00 126 26 113/74 (87) 100 06/16/20 23:00 28 15.0 80 06/16/20 22:56 126 27 80 06/16/20 22:00 135 22 106/79 (88) 100 06/16/20 22:00 22 Mechanical Ventilator 80 06/16/20 21:00 139 26 113/74 (87) 100 06/16/20 21:00 26 Mechanical Ventilator 80 06/16/20 20:00 80 06/16/20 20:00 101.3 141 28 119/75 (90) 100 06/16/20 20:00 Mechanical Ventilator Mechanical Ventilator 06/16/20 20:00 28 Mechanical Ventilator 80 06/16/20 20:00 138 06/16/20 19:05 141 28 80 06/16/20 19:00 135 25 121/79 (93) 100 06/16/20 19:00 28 114/76 Mechanical Ventilator 80 06/16/20 19:00 28 Mechanical Ventilator 80 06/16/20 18:00 28 115/78 Mechanical Ventilator 80 06/16/20 18:00 28 Mechanical Ventilator 80 06/16/20 18:00 120 28 115/78 (90) 100 06/16/20 17:00 28 108/70 Mechanical Ventilator 80 06/16/20 17:00 28 Mechanical Ventilator 80 06/16/20 17:00 118 28 108/71 (83) 100 06/16/20 16:00 117 06/16/20 16:00 28 112/73 Mechanical Ventilator 80 06/16/20 16:00 28 Mechanical Ventilator 80 06/16/20 16:00 80 06/16/20 16:00 98.8 114 31 107/61 (76) 100 06/16/20 16:00 Mechanical Ventilator Mechanical Ventilator 06/16/20 15:28 126 28 100 06/16/20 15:00 128 28 96/67 (77) 100 06/16/20 15:00 28 96/67 Mechanical Ventilator 80 06/16/20 15:00 28 Mechanical Ventilator 80 06/16/20 14:00 28 97/71 Mechanical Ventilator 100 06/16/20 14:00 28 Mechanical Ventilator 100 06/16/20 14:00 132 28 97/71 (80) 100 06/16/20 13:00 133 25 92/74 (80) 100 06/16/20 13:00 28 92/74 Mechanical Ventilator 100 06/16/20 13:00 28 Mechanical Ventilator 100 06/16/20 12:00 100.5 141 28 94/62 (73) 100 06/16/20 12:00 100 06/16/20 12:00 136 06/16/20 12:00 28 94/62 Mechanical Ventilator 100 06/16/20 12:00 28 Mechanical Ventilator 100 06/16/20 12:00 Mechanical Ventilator Mechanical Ventilator Height (Feet): 5 Height (Inches): 6.00 Weight (Pounds): 160 HEENT: mucous membranes moist Respiratory/Chest: other - on ventilator , FIo2=70% Cardiovascular: tachycardia Abdomen: soft, non tender Extremities: no edema Neurologic/Psychiatric: other - sedated Microbiology Date/Time Source Procedure Growth Status 06/15/20 07:40 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 Complete 06/15/20 07:40 Nasal Nares MRSA Culture - Final NO METHICILLIN RESISTANT STAPH AUREUS... Complete Laboratory Tests Test 06/16/20 14:25 06/17/20 05:21 06/17/20 09:09 Arterial Blood pH 7.226 (7.350-7.450) 7.328 (7.350-7.450) Arterial Blood Partial Pressure CO2 60.7 mmHg (35.0-45.0) *H 53.6 mmHg (35.0-45.0) H Arterial Blood Partial Pressure O2 182.6 mmHg (75.0-100.0) H 106.9 mmHg (75.0-100.0) H Arterial Blood HCO3 24.6 mmol/L (22.0-26.0) 27.5 mmol/L (22.0-26.0) H Arterial Blood Oxygen Saturation 98.6 % (95-100) 96.7 % (95-100) Arterial Blood Base Excess -4.2 (-2-2) L 0.5 (-2-2) Manan Test Positive Positive White Blood Count 13.0 K/UL (4.8-10.8) H Red Blood Count 4.60 M/UL (4.20-5.40) Hemoglobin 14.3 G/DL (12.0-16.0) Hematocrit 44.3 % (37.0-47.0) Mean Corpuscular Volume 96 FL (80-99) Mean Corpuscular Hemoglobin 31.0 PG (27.0-31.0) Mean Corpuscular Hemoglobin Concent 32.2 G/DL (32.0-36.0) Red Cell Distribution Width 14.3 % (11.6-14.8) Platelet Count 191 K/UL (150-450) Mean Platelet Volume 7.5 FL (6.5-10.1) Neutrophils (%) (Auto) % (45.0-75.0) Lymphocytes (%) (Auto) % (20.0-45.0) Monocytes (%) (Auto) % (1.0-10.0) Eosinophils (%) (Auto) % (0.0-3.0) Basophils (%) (Auto) % (0.0-2.0) Differential Total Cells Counted 100 Neutrophils % (Manual) 93 % (45-75) H Lymphocytes % (Manual) 4 % (20-45) L Monocytes % (Manual) 3 % (1-10) Eosinophils % (Manual) 0 % (0-3) Basophils % (Manual) 0 % (0-2) Band Neutrophils 0 % (0-8) Platelet Estimate Adequate Platelet Morphology Normal Anisocytosis 1+ Sodium Level 147 MMOL/L (136-145) H Potassium Level 5.9 MMOL/L (3.5-5.1) H Chloride Level 112 MMOL/L (98-107) H Carbon Dioxide Level 23 MMOL/L (21-32) Anion Gap 12 mmol/L (5-15) Blood Urea Nitrogen 64 mg/dL (7-18) H Creatinine 2.4 MG/DL (0.55-1.30) H Estimat Glomerular Filtration Rate 26.7 mL/min (>60) Glucose Level 325 MG/DL (74-106) #H Calcium Level 8.1 MG/DL (8.5-10.1) L Total Bilirubin 0.6 MG/DL (0.2-1.0) Direct Bilirubin 0.2 MG/DL (0.0-0.3) Aspartate Amino Transf (AST/SGOT) 70 U/L (15-37) H Alanine Aminotransferase (ALT/SGPT) 69 U/L (12-78) Alkaline Phosphatase 106 U/L (46-116) Pro-B-Type Natriuretic Peptide Pending Total Protein 8.1 G/DL (6.4-8.2) Albumin 2.2 G/DL (3.4-5.0) L Globulin 5.9 g/dL Albumin/Globulin Ratio 0.4 (1.0-2.7) L Current Medications Medications (Trade) Dose Ordered Sig/Candis Route PRN Reason Start Time Stop Time Status Last Admin Dose Admin Acetaminophen (Tylenol) 650 mg Q4H PRN ORAL fever 06/11/20 19:30 07/11/20 19:29 06/16/20 05:44 Dexamethasone Sodium Phosphate (Decadron 4mg/ml vial) 6 mg DAILY IVP 06/12/20 09:00 06/20/20 09:01 06/17/20 08:06 Enoxaparin Sodium (Lovenox) 40 mg DAILY SUBQ 06/12/20 09:00 09/10/20 08:59 06/17/20 08:06 Fentanyl Citrate 250 ml @ 1 mls/hr Q24H IV 06/16/20 18:30 06/18/20 18:29 06/16/20 23:02 Midazolam HCl 100 mg/Sodium Chloride 200 ml @ 0 mls/hr Q24H IV 06/13/20 14:00 06/18/20 13:59 06/16/20 23:00 Remdesivir 100 mg/ Sodium Chloride 250 ml @ 250 mls/hr Q24H IV 06/14/20 16:00 06/17/20 16:59 06/16/20 16:27 Juan Velazquez MD Jun 17, 2020 11:37
[2020-06-17] MEDS ORDERED: LORazepam Inj 2mg/ml 1ml IV PRN (13:45)
[2020-06-17] MEDS ORDERED: Sodium Polystyrene Sulfonate 15gm Powder NG SCH (13:45)
[2020-06-17] MEDS ORDERED: Metoprolol Tartrate 5mg/5ml Inj IVP SCH (16:00)
[2020-06-17] MEDS: Maintenance Dose:Remdesivir 100mg/NS 230ml x 4 Doses IV SCH ×2 (16:13)
[2020-06-17] MEDS: fentaNYL 2500mcg/NS 250ml 250 ML IV SCH (17:40)
[2020-06-17] MEDS: NS IV SCH (17:40)
[2020-06-17] MEDS: MIDAZOLAM FOR DRIP IV SCH (17:40)
--- NOTE | 2020-06-17 21:28 | Cardiology Progress Note ---
Subjective DATE OF SERVICE: Jun 17, 2020 Remains Critical & Guarded Still sedated, but weaning off drips. On full vent support. ABG: (06/17) 7.33/54/109 Objective Last 24 Hour Vital Signs Date Time Temp Pulse Resp B/P (MAP) Pulse Ox O2 Delivery O2 Flow Rate FiO2 06/17/20 20:39 113 120/80 06/17/20 19:00 106 28 118/75 (89) 97 06/17/20 19:00 28 118/75 Endotracheal Tube 45 06/17/20 19:00 28 Endotracheal Tube 45 06/17/20 18:54 106 28 45 06/17/20 18:00 108 28 122/76 (91) 96 06/17/20 18:00 28 120/80 Endotracheal Tube 45 06/17/20 18:00 28 Endotracheal Tube 45 06/17/20 17:40 30 Endotracheal Tube 45 06/17/20 17:00 28 133/78 Endotracheal Tube 45 06/17/20 17:00 28 45 06/17/20 17:00 101.6 120 29 133/78 (96) 99 06/17/20 16:44 101.4 06/17/20 16:12 135 159/84 06/17/20 16:00 100.5 141 28 159/84 (109) 100 06/17/20 16:00 113 06/17/20 16:00 45 06/17/20 16:00 30 159/84 Endotracheal Tube 45 06/17/20 16:00 30 Endotracheal Tube 45 06/17/20 16:00 Mechanical Ventilator Mechanical Ventilator 06/17/20 15:54 140 31 60 06/17/20 15:38 140 31 167/91 99 06/17/20 15:08 137 28 176/95 95 06/17/20 15:00 31 176/95 Endotracheal Tube 45 06/17/20 15:00 31 Endotracheal Tube 45 06/17/20 15:00 135 31 176/95 (122) 100 06/17/20 14:00 29 161/98 Endotracheal Tube 45 06/17/20 14:00 29 45 06/17/20 14:00 116 28 161/98 (119) 100 06/17/20 13:54 117 144/91 06/17/20 13:00 118 28 147/88 (107) 98 06/17/20 13:00 28 147/88 Endotracheal Tube 45 06/17/20 13:00 28 Endotracheal Tube 45 06/17/20 12:00 29 163/89 Endotracheal Tube 45 06/17/20 12:00 29 Endotracheal Tube 45 06/17/20 12:00 99.5 129 29 163/89 (113) 100 06/17/20 12:00 45 06/17/20 12:00 Mechanical Ventilator Mechanical Ventilator 06/17/20 12:00 132 06/17/20 11:57 126 41 60 06/17/20 11:00 30 164/88 Endotracheal Tube 45 06/17/20 11:00 30 Endotracheal Tube 45 06/17/20 11:00 132 31 164/88 (113) 98 06/17/20 10:00 101.3 140 29 161/85 (110) 100 06/17/20 10:00 28 161/85 Endotracheal Tube 45 06/17/20 10:00 28 Endotracheal Tube 45 06/17/20 09:30 29 166/84 Endotracheal Tube 45 06/17/20 09:27 45 06/17/20 09:15 28 160/85 Endotracheal Tube 45 06/17/20 09:00 145 27 153/81 (105) 100 06/17/20 09:00 28 153/81 Endotracheal Tube 45 06/17/20 09:00 28 Endotracheal Tube 45 06/17/20 08:45 28 150/80 Endotracheal Tube 45 06/17/20 08:30 28 158/88 Endotracheal Tube 45 06/17/20 08:15 28 154/85 Endotracheal Tube 45 06/17/20 08:00 45 06/17/20 08:00 99.6 143 30 172/89 (116) 100 06/17/20 08:00 28 166/86 Endotracheal Tube 45 06/17/20 08:00 28 Endotracheal Tube 45 06/17/20 08:00 Mechanical Ventilator Mechanical Ventilator 06/17/20 08:00 141 06/17/20 07:58 145 30 60 06/17/20 07:45 28 172/89 Endotracheal Tube 45 06/17/20 07:31 138 29 157/85 (109) 100 06/17/20 07:30 28 160/82 Endotracheal Tube 45 06/17/20 07:15 28 157/80 Endotracheal Tube 45 06/17/20 07:00 138 29 157/85 (109) 100 06/17/20 07:00 29 157/85 Mechanical Ventilator 80 06/17/20 07:00 29 80 06/17/20 06:30 133 29 06/17/20 06:00 27 175/84 Mechanical Ventilator 80 06/17/20 06:00 28 80 06/17/20 06:00 121 27 175/84 (114) 100 06/17/20 05:00 112 29 128/78 (95) 100 06/17/20 05:00 29 128/78 Mechanical Ventilator 80 06/17/20 05:00 29 Mechanical Ventilator 80 06/17/20 04:00 80 06/17/20 04:00 98.2 94 24 93/78 (83) 99 06/17/20 04:00 24 93/78 Mechanical Ventilator 80 06/17/20 04:00 24 Mechanical Ventilator 80 06/17/20 04:00 98 06/17/20 04:00 Mechanical Ventilator Mechanical Ventilator 06/17/20 03:22 97 27 60 06/17/20 03:00 29 120/82 Mechanical Ventilator 80 06/17/20 03:00 29 Mechanical Ventilator 80 06/17/20 03:00 97 29 120/82 (95) 100 06/17/20 02:00 103 28 121/79 (93) 100 06/17/20 02:00 28 121/79 Mechanical Ventilator 80 06/17/20 02:00 28 Mechanical Ventilator 80 06/17/20 01:00 30 104/80 Mechanical Ventilator 80 06/17/20 01:00 30 Mechanical Ventilator 80 06/17/20 01:00 110 30 104/80 (88) 100 06/17/20 00:00 Mechanical Ventilator Mechanical Ventilator 06/17/20 00:00 80 06/17/20 00:00 32 116/74 Mechanical Ventilator 80 06/17/20 00:00 32 Mechanical Ventilator 80 06/17/20 00:00 98.1 118 32 116/74 (88) 100 06/17/20 00:00 122 06/16/20 23:02 28 113/74 Non-Rebreather 15.0 80 06/16/20 23:02 26 Mechanical Ventilator 80 06/16/20 23:00 126 26 113/74 (87) 100 06/16/20 23:00 28 15.0 80 06/16/20 22:56 126 27 80 06/16/20 22:00 135 22 106/79 (88) 100 06/16/20 22:00 22 Mechanical Ventilator 80 ROS: unchanged from 06/16/20 HEENT: Orally intubated, Mechanically Ventilated, Thin Trach secretions RHYTHM: ST LUNGS: bilateral rhonchi ABDOMEN: non tender, soft, no organomegaly, slightly distended EXTREMITIES: normal range of motion, non-tender, trace edema Laboratory Tests Test 06/17/20 05:21 06/17/20 09:09 White Blood Count 13.0 K/UL (4.8-10.8) H Red Blood Count 4.60 M/UL (4.20-5.40) Hemoglobin 14.3 G/DL (12.0-16.0) Hematocrit 44.3 % (37.0-47.0) Mean Corpuscular Volume 96 FL (80-99) Mean Corpuscular Hemoglobin 31.0 PG (27.0-31.0) Mean Corpuscular Hemoglobin Concent 32.2 G/DL (32.0-36.0) Red Cell Distribution Width 14.3 % (11.6-14.8) Platelet Count 191 K/UL (150-450) Mean Platelet Volume 7.5 FL (6.5-10.1) Neutrophils (%) (Auto) % (45.0-75.0) Lymphocytes (%) (Auto) % (20.0-45.0) Monocytes (%) (Auto) % (1.0-10.0) Eosinophils (%) (Auto) % (0.0-3.0) Basophils (%) (Auto) % (0.0-2.0) Differential Total Cells Counted 100 Neutrophils % (Manual) 93 % (45-75) H Lymphocytes % (Manual) 4 % (20-45) L Monocytes % (Manual) 3 % (1-10) Eosinophils % (Manual) 0 % (0-3) Basophils % (Manual) 0 % (0-2) Band Neutrophils 0 % (0-8) Platelet Estimate Adequate Platelet Morphology Normal Anisocytosis 1+ Sodium Level 147 MMOL/L (136-145) H Potassium Level 5.9 MMOL/L (3.5-5.1) H Chloride Level 112 MMOL/L (98-107) H Carbon Dioxide Level 23 MMOL/L (21-32) Anion Gap 12 mmol/L (5-15) Blood Urea Nitrogen 64 mg/dL (7-18) H Creatinine 2.4 MG/DL (0.55-1.30) H Estimat Glomerular Filtration Rate 26.7 mL/min (>60) Glucose Level 325 MG/DL (74-106) #H Calcium Level 8.1 MG/DL (8.5-10.1) L Total Bilirubin 0.6 MG/DL (0.2-1.0) Direct Bilirubin 0.2 MG/DL (0.0-0.3) Aspartate Amino Transf (AST/SGOT) 70 U/L (15-37) H Alanine Aminotransferase (ALT/SGPT) 69 U/L (12-78) Alkaline Phosphatase 106 U/L (46-116) Pro-B-Type Natriuretic Peptide Pending Total Protein 8.1 G/DL (6.4-8.2) Albumin 2.2 G/DL (3.4-5.0) L Globulin 5.9 g/dL Albumin/Globulin Ratio 0.4 (1.0-2.7) L Arterial Blood pH 7.328 (7.350-7.450) Arterial Blood Partial Pressure CO2 53.6 mmHg (35.0-45.0) H Arterial Blood Partial Pressure O2 106.9 mmHg (75.0-100.0) H Arterial Blood HCO3 27.5 mmol/L (22.0-26.0) H Arterial Blood Oxygen Saturation 96.7 % (95-100) Arterial Blood Base Excess 0.5 (-2-2) Manan Test Positive Microbiology Date/Time Source Procedure Growth Status 06/15/20 07:40 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 Complete 06/15/20 07:40 Nasal Nares MRSA Culture - Final NO METHICILLIN RESISTANT STAPH AUREUS... Complete Assessment/Plan Assessment/Plan Covid 19 PNA Respiratory failure Secondary sinus tachycardia Rhabdomyolysis Dehydration/hypernatremia Acute renal failure Acute myocardial ischemia Sepsis HIV + Paroxysmal SVT Metabolic acidosis Vent support IVF hydration F/U labs Anti-viral rx per ID No anti-arrhythmics indicated Full anticoagulation Steroids per Olegario Sharma MD Jun 17, 2020 21:28
[2020-06-18] VITALS (47 sets, daily range): BP systolic 80–153; BP diastolic 45–89
[2020-06-18 05:46] LABS: HEMATOCRIT 46.6 % (37.0-47.0); MEAN CORPUSCULAR VOLUME 93 FL (80-99); PLATELET COUNT 210 K/UL (150-450); RED BLOOD COUNT 4.99 M/UL (4.20-5.40); RED CELL DISTRIBUTION WIDTH 13.9 % (11.6-14.8); WHITE BLOOD COUNT 16.3 K/UL (4.8-10.8)
[2020-06-18 06:20] LABS: ALBUMIN 2.2 G/DL (3.4-5.0); ALBUMIN/GLOBULIN RATIO 0.3 (1.0-2.7); BILIRUBIN,DIRECT 0.2 MG/DL (0.0-0.3); BILIRUBIN,TOTAL 0.4 MG/DL (0.2-1.0); CALCIUM 8.9 MG/DL (8.5-10.1); POTASSIUM 5.8 MMOL/L (3.5-5.1)
[2020-06-18] MEDS ORDERED: Sodium Polystyrene Sulfonate 15gm Powder ORAL SCH (07:00)
--- NOTE | 2020-06-18 07:04 | Pulmonolgy Critical Care Note ---
Critical Care - Asmt/Plan Assessment/Plan: Pulmonary CCM Progress Note Assessment/Plan Assessment/Plan IMPRESSION: 1. Pneumonia, COVID. 2. Elevated creatine kinase 3. Acute renal failure. 4. HIV, currently nondetectable. 5. metabolic acidosis 6. hypoxemia. 7. Acute hypoxemic respiratory failure 8. hypernatremia 9. leukocytosis 10. SVT improved RECOMMENDATION: Cardiology noted. ID follow up. IV hydration. Kayexalate PRN On Decadron. DVT prophylaxis. Monitor clinically for changes. dietary and NGT feeds supportive care sedation for now monitor lytes cannot wean at present remains critical at present try to decrease fio2 medications/laboratory data/nursing notes/ICU care reviewed in detail note reviewed and edited care discussed with RN and RT ICU time spent >40 minutes Critical Care - Subjective ROS Limited/Unobtainable: Yes Condition: critical EKG Rhythm: Sinus Tachycardia Residuals: minimal Tube Feeding Tolerated: yes Critical Care - Objective ET-Tube: 7.0 ET Position: 24 Vital Signs noted Labs: noted Objective: deferred due to COVID Micro: Microbiology Date/Time Source Procedure Growth Status 06/15/20 07:40 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 Complete 06/15/20 07:40 Nasal Nares MRSA Culture - Final NO METHICILLIN RESISTANT STAPH AUREUS... Complete Critical Care - Objective Last 24 Hour Vital Signs Date Time Temp Pulse Resp B/P (MAP) Pulse Ox O2 Delivery O2 Flow Rate FiO2 06/18/20 06:30 124 32 146/89 (108) 94 06/18/20 06:00 28 146/70 Mechanical Ventilator 40 06/18/20 06:00 30 Mechanical Ventilator 40 06/18/20 06:00 122 32 145/86 (105) 94 06/18/20 05:30 121 31 142/85 (104) 94 06/18/20 05:00 121 31 142/82 (102) 94 06/18/20 05:00 28 146/80 Mechanical Ventilator 40 06/18/20 05:00 30 Mechanical Ventilator 40 06/18/20 04:30 121 31 135/85 (102) 93 06/18/20 04:00 30 146/80 Endotracheal Tube 40 06/18/20 04:00 28 Mechanical Ventilator 40 06/18/20 04:00 123 31 142/80 (100) 94 06/18/20 03:30 121 32 150/84 (106) 95 06/18/20 03:24 122 32 40 06/18/20 03:00 45 145/75 Mechanical Ventilator 40 06/18/20 03:00 28 Mechanical Ventilator 40 06/18/20 03:00 125 31 152/83 (106) 93 06/18/20 02:30 126 31 153/87 (109) 93 06/18/20 02:00 126 30 153/86 (108) 93 06/18/20 02:00 28 136/70 Mechanical Ventilator 40 06/18/20 02:00 28 40 06/18/20 01:30 123 30 152/86 (108) 93 06/18/20 01:30 123 30 152/86 (108) 93 06/18/20 01:00 120 29 144/85 (104) 94 06/18/20 01:00 30 144/85 Mechanical Ventilator 40 06/18/20 01:00 28 Mechanical Ventilator 40 06/18/20 01:00 120 29 144/85 (104) 94 06/18/20 00:30 113 28 137/83 (101) 94 06/18/20 00:30 113 28 137/83 (101) 94 06/18/20 00:00 28 144/86 Mechanical Ventilator 40 06/18/20 00:00 28 Mechanical Ventilator 40 06/18/20 00:00 100.0 107 26 125/81 (96) 95 06/18/20 00:00 107 26 125/81 (96) 95 06/18/20 00:00 Mechanical Ventilator Mechanical Ventilator 06/17/20 23:15 105 28 40 06/17/20 23:00 109 28 126/79 (95) 96 06/17/20 23:00 28 126/80 Mechanical Ventilator 40 06/17/20 23:00 30 Mechanical Ventilator 40 06/17/20 22:30 111 28 130/79 (96) 96 06/17/20 22:00 114 28 135/80 (98) 96 06/17/20 22:00 20 126/80 Mechanical Ventilator 40 06/17/20 22:00 30 Mechanical Ventilator 40 06/17/20 21:00 28 134/81 Mechanical Ventilator 40 06/17/20 21:00 28 Mechanical Ventilator 40 06/17/20 21:00 112 27 134/81 (98) 96 06/17/20 20:39 113 120/80 12/20/20 20:00 97.1 106 28 114/77 (89) 97 20 20:00 113 20 20:00 28 114/76 Mechanical Ventilator 40 06/17/20 20:00 28 Mechanical Ventilator 40 20 20:00 45 20 20:00 Mechanical Ventilator Mechanical Ventilator 06/17/20 19:00 106 28 118/75 (89) 97 20 19:00 28 118/75 Endotracheal Tube 45 06/17/20 19:00 28 Endotracheal Tube 45 06/17/20 18:54 106 28 45 06/17/20 18:00 108 28 122/76 (91) 96 20 18:00 28 120/80 Endotracheal Tube 45 06/17/20 18:00 28 Endotracheal Tube 45 06/17/20 17:40 30 Endotracheal Tube 45 06/17/20 17:00 28 133/78 Endotracheal Tube 45 06/17/20 17:00 28 45 06/17/20 17:00 101.6 120 29 133/78 (96) 99 06/17/20 16:44 101.4 20 16:12 135 159/84 06/17/20 16:00 100.5 141 28 159/84 (109) 100 06/17/20 16:00 113 06/17/20 16:00 45 06/17/20 16:00 30 159/84 Endotracheal Tube 45 06/17/20 16:00 30 Endotracheal Tube 45 20 16:00 Mechanical Ventilator Mechanical Ventilator 06/17/20 15:54 140 31 60 06/17/20 15:38 140 31 167/91 99 06/17/20 15:08 137 28 176/95 95 20 15:00 31 176/95 Endotracheal Tube 45 06/17/20 15:00 31 Endotracheal Tube 45 06/17/20 15:00 135 31 176/95 (122) 100 06/17/20 14:00 29 161/98 Endotracheal Tube 45 06/17/20 14:00 29 45 20 14:00 116 28 161/98 (119) 100 20 13:54 117 144/91 06/17/20 13:00 118 28 147/88 (107) 98 06/17/20 13:00 28 147/88 Endotracheal Tube 45 06/17/20 13:00 28 Endotracheal Tube 45 06/17/20 12:00 29 163/89 Endotracheal Tube 45 06/17/20 12:00 29 Endotracheal Tube 45 06/17/20 12:00 99.5 129 29 163/89 (113) 100 06/17/20 12:00 45 06/17/20 12:00 Mechanical Ventilator Mechanical Ventilator 06/17/20 12:00 132 06/17/20 11:57 126 41 60 06/17/20 11:00 30 164/88 Endotracheal Tube 45 06/17/20 11:00 30 Endotracheal Tube 45 06/17/20 11:00 132 31 164/88 (113) 98 06/17/20 10:00 101.3 140 29 161/85 (110) 100 06/17/20 10:00 28 161/85 Endotracheal Tube 45 06/17/20 10:00 28 Endotracheal Tube 45 06/17/20 09:30 29 166/84 Endotracheal Tube 45 06/17/20 09:27 45 06/17/20 09:15 28 160/85 Endotracheal Tube 45 06/17/20 09:00 145 27 153/81 (105) 100 06/17/20 09:00 28 153/81 Endotracheal Tube 45 06/17/20 09:00 28 Endotracheal Tube 45 06/17/20 08:45 28 150/80 Endotracheal Tube 45 06/17/20 08:30 28 158/88 Endotracheal Tube 45 06/17/20 08:15 28 154/85 Endotracheal Tube 45 06/17/20 08:00 45 06/17/20 08:00 99.6 143 30 172/89 (116) 100 06/17/20 08:00 28 166/86 Endotracheal Tube 45 06/17/20 08:00 28 Endotracheal Tube 45 06/17/20 08:00 Mechanical Ventilator Mechanical Ventilator 06/17/20 08:00 141 06/17/20 07:58 145 30 60 06/17/20 07:45 28 172/89 Endotracheal Tube 45 06/17/20 07:31 138 29 157/85 (109) 100 06/17/20 07:30 28 160/82 Endotracheal Tube 45 06/17/20 07:15 28 157/80 Endotracheal Tube 45 Micro: Microbiology Date/Time Source Procedure Growth Status 06/15/20 07:40 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 Complete 06/15/20 07:40 Nasal Nares MRSA Culture - Final NO METHICILLIN RESISTANT STAPH AUREUS... Complete Accucheck: 157 Critical Care - Subjective ROS Limited/Unobtainable: Yes Condition: critical FI02: 40 Vent Support Breath Rate: 28 Vent Support Mode: AC Vent Tidal Volume: 500 Sputum Amount: Scant PEEP: 10.0 PIP: 38 Tube Feeding Amount: 20 I&O: Intake and Output 06/17/20 06/18/20 19:00 07:00 Intake Total 1097.75 ml 612 ml Output Total 1675 ml 2050 ml Balance -577.25 ml -1438 ml Intake Free Water 150 ml IV Total 252.75 ml 242 ml Tube Feeding 845 ml 220 ml Output Urine Total 1675 ml 2050 ml ET-Tube: 7.0 ET Position: 24 Olegario Juniro MD Jun 18, 2020 07:04
[2020-06-18] MEDS: MIDAZOLAM FOR DRIP IV SCH (08:24)
[2020-06-18] MEDS: NS IV SCH (08:24)
[2020-06-18] MEDS: fentaNYL 2500mcg/NS 250ml 250 ML IV SCH (08:25)
[2020-06-18] MEDS: Enoxaparin 40mg Inj SUBQ SCH (08:30)
[2020-06-18] MEDS ORDERED: 1/2 NS 1000ml IV ONE (09:35)
[2020-06-18] MEDS ORDERED: NS 275ml ONE (09:35)
[2020-06-18] MEDS ORDERED: Tubing IV Secondary IV ONE (09:35)
[2020-06-18] MEDS ORDERED: Lidocaine 1% Plain 30 ml INJ PRN (11:15)
[2020-06-18] MEDS ORDERED: Heparin1,000 units/500ml Premix(Conc:2 units/ml) IV PRN (11:15)
[2020-06-18] MEDS ORDERED: Levemir Flexpen SUBQ SCH (12:00)
--- NOTE | 2020-06-18 12:14 | CDS Physician Query ---
Clarification is required for compliance, coding accuracy, and to reflect severity of illness for this patient Dear Dr. Robinson Bolton Date: 06/18/2020 [employer] Admin/CDS Name: Yeni Barnes Clinical Documentation states: HNP: REASON FOR ADMISSION: Possible COVID pneumonia. HISTORY OF PRESENT ILLNESS: The patient is a 44-year-old female who presents with what appears to be atelectasis and what was described as fevers and recent pneumonia. 06/17 consult note: Covid 19 PNA...Sepsis Vitals/labs on admission: WBC 8.0, ND 115, RR 40, Temp 99.0 Clarification is needed for one (or more) of the following conditions in order to accurately assign the "present on admission' indicator. Please choose the answer that best indicates whether the associated condition was present at the time of the order for inpatient admission. Thank you. Was the Sepsis Present on admission? [] YES [] NO [] Clinically Undeterminable Physician signature Date Please also document in your Progress Notes and/or Discharge Summary and indicate if the condition was present on admission. MEDARDOD
--- NOTE | 2020-06-18 12:34 | Cardiology Progress Note ---
Subjective DATE OF SERVICE: Jun 18, 2020 Remains Critical & Guarded Still sedated, but weaning off drips. On full vent support. ABG: (06/17) 7.33/54/109 Objective Last 24 Hour Vital Signs Date Time Temp Pulse Resp B/P (MAP) Pulse Ox O2 Delivery O2 Flow Rate FiO2 06/18/20 11:45 117 25 96 06/18/20 11:30 117 25 127/75 (92) 96 06/18/20 11:15 118 25 120/73 (89) 95 06/18/20 11:00 119 26 125/79 (94) 95 06/18/20 10:45 120 26 122/70 (87) 95 06/18/20 10:30 121 26 128/72 (90) 95 06/18/20 10:15 124 28 123/71 (88) 100 06/18/20 10:00 125 29 121/71 (88) 96 06/18/20 09:45 125 31 80/60 (67) 100 06/18/20 09:30 126 28 123/78 (93) 96 06/18/20 09:15 126 28 128/72 (90) 95 06/18/20 09:00 40 06/18/20 09:00 136 29 121/69 (86) 95 06/18/20 08:56 98.9 06/18/20 08:45 134 24 143/84 (103) 100 06/18/20 08:30 134 25 142/77 (98) 96 06/18/20 08:27 133 145/87 06/18/20 08:25 30 145/82 Mechanical Ventilator 06/18/20 08:24 30 Mechanical Ventilator 06/18/20 08:15 135 23 145/82 (103) 95 06/18/20 08:00 131 28 142/77 (98) 94 06/18/20 08:00 134 06/18/20 08:00 Endotracheal Tube Mechanical Ventilator 06/18/20 07:30 130 32 144/88 (106) 94 06/18/20 07:00 101.8 127 31 150/82 (104) 94 06/18/20 06:42 126 28 40 06/18/20 06:30 124 32 146/89 (108) 94 06/18/20 06:00 28 146/70 Mechanical Ventilator 40 06/18/20 06:00 30 Mechanical Ventilator 40 06/18/20 06:00 109 64 06/18/20 06:00 122 32 145/86 (105) 94 06/18/20 05:30 121 31 142/85 (104) 94 06/18/20 05:00 121 31 142/82 (102) 94 06/18/20 05:00 28 146/80 Mechanical Ventilator 40 06/18/20 05:00 30 Mechanical Ventilator 40 06/18/20 04:30 121 31 135/85 (102) 93 06/18/20 04:00 45 06/18/20 04:00 Mechanical Ventilator Mechanical Ventilator 06/18/20 04:00 30 146/80 Endotracheal Tube 40 06/18/20 04:00 28 Mechanical Ventilator 40 06/18/20 04:00 123 31 142/80 (100) 94 06/18/20 04:00 119 06/18/20 03:30 121 32 150/84 (106) 95 06/18/20 03:24 122 32 40 06/18/20 03:00 45 145/75 Mechanical Ventilator 40 06/18/20 03:00 28 Mechanical Ventilator 40 06/18/20 03:00 125 31 152/83 (106) 93 06/18/20 02:30 126 31 153/87 (109) 93 06/18/20 02:00 126 30 153/86 (108) 93 06/18/20 02:00 28 136/70 Mechanical Ventilator 40 06/18/20 02:00 28 40 06/18/20 01:30 123 30 152/86 (108) 93 06/18/20 01:30 123 30 152/86 (108) 93 06/18/20 01:00 120 29 144/85 (104) 94 06/18/20 01:00 30 144/85 Mechanical Ventilator 40 06/18/20 01:00 28 Mechanical Ventilator 40 06/18/20 01:00 120 29 144/85 (104) 94 06/18/20 00:30 113 28 137/83 (101) 94 06/18/20 00:30 113 28 137/83 (101) 94 06/18/20 00:00 45 06/18/20 00:00 28 144/86 Mechanical Ventilator 40 06/18/20 00:00 28 Mechanical Ventilator 40 06/18/20 00:00 115 06/18/20 00:00 100.0 107 26 125/81 (96) 95 20 00:00 107 26 125/81 (96) 95 20 00:00 Mechanical Ventilator Mechanical Ventilator 06/17/20 23:15 105 28 40 06/17/20 23:00 109 28 126/79 (95) 96 20 23:00 28 126/80 Mechanical Ventilator 40 06/17/20 23:00 30 Mechanical Ventilator 40 06/17/20 22:30 111 28 130/79 (96) 96 20 22:00 114 28 135/80 (98) 96 20 22:00 20 126/80 Mechanical Ventilator 40 06/17/20 22:00 30 Mechanical Ventilator 40 06/17/20 21:00 28 134/81 Mechanical Ventilator 40 06/17/20 21:00 28 Mechanical Ventilator 40 06/17/20 21:00 112 27 134/81 (98) 96 06/17/20 20:39 113 120/80 06/17/20 20:00 97.1 106 28 114/77 (89) 97 06/17/20 20:00 113 06/17/20 20:00 28 114/76 Mechanical Ventilator 40 06/17/20 20:00 28 Mechanical Ventilator 40 06/17/20 20:00 45 06/17/20 20:00 Mechanical Ventilator Mechanical Ventilator 06/17/20 19:00 106 28 118/75 (89) 97 20 19:00 28 118/75 Endotracheal Tube 45 06/17/20 19:00 28 Endotracheal Tube 45 06/17/20 18:54 106 28 45 06/17/20 18:00 108 28 122/76 (91) 96 06/17/20 18:00 28 120/80 Endotracheal Tube 45 20 18:00 28 Endotracheal Tube 45 06/17/20 17:40 30 Endotracheal Tube 45 20 17:00 28 133/78 Endotracheal Tube 45 06/17/20 17:00 28 45 06/17/20 17:00 101.6 120 29 133/78 (96) 99 20 16:44 101.4 20 16:12 135 159/84 20 16:00 100.5 141 28 159/84 (109) 100 20 16:00 113 12/20/20 16:00 45 06/17/20 16:00 30 159/84 Endotracheal Tube 45 06/17/20 16:00 30 Endotracheal Tube 45 06/17/20 16:00 Mechanical Ventilator Mechanical Ventilator 06/17/20 15:54 140 31 60 06/17/20 15:38 140 31 167/91 99 06/17/20 15:08 137 28 176/95 95 06/17/20 15:00 31 176/95 Endotracheal Tube 45 06/17/20 15:00 31 Endotracheal Tube 45 06/17/20 15:00 135 31 176/95 (122) 100 06/17/20 14:00 29 161/98 Endotracheal Tube 45 06/17/20 14:00 29 45 06/17/20 14:00 116 28 161/98 (119) 100 06/17/20 13:54 117 144/91 06/17/20 13:00 118 28 147/88 (107) 98 06/17/20 13:00 28 147/88 Endotracheal Tube 45 06/17/20 13:00 28 Endotracheal Tube 45 ROS: unchanged from 06/16/20 HEENT: Orally intubated, Mechanically Ventilated, Thin Trach secretions RHYTHM: ST LUNGS: bilateral rhonchi ABDOMEN: non tender, soft, no organomegaly, slightly distended EXTREMITIES: normal range of motion, non-tender, trace edema Laboratory Tests Test 06/18/20 04:19 White Blood Count 16.3 K/UL (4.8-10.8) H Red Blood Count 4.99 M/UL (4.20-5.40) Hemoglobin 15.0 G/DL (12.0-16.0) Hematocrit 46.6 % (37.0-47.0) Mean Corpuscular Volume 93 FL (80-99) Mean Corpuscular Hemoglobin 30.2 PG (27.0-31.0) Mean Corpuscular Hemoglobin Concent 32.3 G/DL (32.0-36.0) Red Cell Distribution Width 13.9 % (11.6-14.8) Platelet Count 210 K/UL (150-450) Mean Platelet Volume 8.6 FL (6.5-10.1) Neutrophils (%) (Auto) % (45.0-75.0) Lymphocytes (%) (Auto) % (20.0-45.0) Monocytes (%) (Auto) % (1.0-10.0) Eosinophils (%) (Auto) % (0.0-3.0) Basophils (%) (Auto) % (0.0-2.0) Differential Total Cells Counted 100 Neutrophils % (Manual) 93 % (45-75) H Lymphocytes % (Manual) 4 % (20-45) L Monocytes % (Manual) 3 % (1-10) Eosinophils % (Manual) 0 % (0-3) Basophils % (Manual) 0 % (0-2) Band Neutrophils 0 % (0-8) Platelet Estimate Adequate Platelet Morphology Normal Red Blood Cell Morphology Normal Sodium Level 154 MMOL/L (136-145) H Potassium Level 5.8 MMOL/L (3.5-5.1) H Chloride Level 116 MMOL/L (98-107) H Carbon Dioxide Level 32 MMOL/L (21-32) Anion Gap 6 mmol/L (5-15) Blood Urea Nitrogen 66 mg/dL (7-18) H Creatinine 2.0 MG/DL (0.55-1.30) H Estimat Glomerular Filtration Rate 32.8 mL/min (>60) Glucose Level 480 MG/DL (74-106) #H Calcium Level 8.9 MG/DL (8.5-10.1) Total Bilirubin 0.4 MG/DL (0.2-1.0) Direct Bilirubin 0.2 MG/DL (0.0-0.3) Aspartate Amino Transf (AST/SGOT) 55 U/L (15-37) H Alanine Aminotransferase (ALT/SGPT) 61 U/L (12-78) Alkaline Phosphatase 113 U/L (46-116) Total Protein 8.6 G/DL (6.4-8.2) H Albumin 2.2 G/DL (3.4-5.0) L Globulin 6.4 g/dL Albumin/Globulin Ratio 0.3 (1.0-2.7) L Assessment/Plan Assessment/Plan Covid 19 PNA Respiratory failure Secondary sinus tachycardia Rhabdomyolysis Dehydration/hypernatremia Acute renal failure Acute myocardial ischemia Sepsis HIV + Paroxysmal SVT Metabolic acidosis Dehydration/hypernatremia Vent support IVF hydration - changed to hypotonic fluids F/U labs Anti-viral rx per ID No anti-arrhythmics indicated Full anticoagulation Steroids per pulmonary Olegario Olguin MD Jun 18, 2020 12:34
--- NOTE | 2020-06-18 12:39 | Infectious Diseases Prog Note ---
Assessment/Plan Assessment/Plan antibiotics : remdesivir A 1. COVID 19 pneumonia on 40 percent Fi O2, saturation 96 percent s/p remdesivir 2. HIV, T-cell count of 326, viral load undetectable 3. prediabetes 4. respiratory failure P 1. continue dexamethasone day 8 2. will follow up cultures 3. continue isolation Subjective ROS Limited/Unobtainable: Yes Allergies: Coded Allergies: No Known Allergies (Unverified , 06/11/20) Objective Last 24 Hour Vital Signs Date Time Temp Pulse Resp B/P (MAP) Pulse Ox O2 Delivery O2 Flow Rate FiO2 06/18/20 12:00 Endotracheal Tube Mechanical Ventilator 06/18/20 12:00 118 06/18/20 12:00 40 06/18/20 11:45 117 25 96 06/18/20 11:30 117 25 127/75 (92) 96 06/18/20 11:15 118 25 120/73 (89) 95 06/18/20 11:00 119 26 125/79 (94) 95 06/18/20 10:45 120 26 122/70 (87) 95 06/18/20 10:30 121 26 128/72 (90) 95 06/18/20 10:15 124 28 123/71 (88) 100 06/18/20 10:00 125 29 121/71 (88) 96 06/18/20 09:45 125 31 80/60 (67) 100 06/18/20 09:30 126 28 123/78 (93) 96 06/18/20 09:15 126 28 128/72 (90) 95 06/18/20 09:00 40 06/18/20 09:00 136 29 121/69 (86) 95 06/18/20 08:56 98.9 06/18/20 08:45 134 24 143/84 (103) 100 06/18/20 08:30 134 25 142/77 (98) 96 06/18/20 08:27 133 145/87 06/18/20 08:25 30 145/82 Mechanical Ventilator 06/18/20 08:24 30 Mechanical Ventilator 06/18/20 08:15 135 23 145/82 (103) 95 06/18/20 08:00 131 28 142/77 (98) 94 06/18/20 08:00 134 06/18/20 08:00 Endotracheal Tube Mechanical Ventilator 06/18/20 07:30 130 32 144/88 (106) 94 06/18/20 07:00 101.8 127 31 150/82 (104) 94 06/18/20 06:42 126 28 40 06/18/20 06:30 124 32 146/89 (108) 94 06/18/20 06:00 28 146/70 Mechanical Ventilator 40 06/18/20 06:00 30 Mechanical Ventilator 40 06/18/20 06:00 109 64 06/18/20 06:00 122 32 145/86 (105) 94 06/18/20 05:30 121 31 142/85 (104) 94 06/18/20 05:00 121 31 142/82 (102) 94 06/18/20 05:00 28 146/80 Mechanical Ventilator 40 06/18/20 05:00 30 Mechanical Ventilator 40 06/18/20 04:30 121 31 135/85 (102) 93 06/18/20 04:00 45 06/18/20 04:00 Mechanical Ventilator Mechanical Ventilator 06/18/20 04:00 30 146/80 Endotracheal Tube 40 06/18/20 04:00 28 Mechanical Ventilator 40 06/18/20 04:00 123 31 142/80 (100) 94 06/18/20 04:00 119 06/18/20 03:30 121 32 150/84 (106) 95 06/18/20 03:24 122 32 40 06/18/20 03:00 45 145/75 Mechanical Ventilator 40 06/18/20 03:00 28 Mechanical Ventilator 40 06/18/20 03:00 125 31 152/83 (106) 93 06/18/20 02:30 126 31 153/87 (109) 93 06/18/20 02:00 126 30 153/86 (108) 93 06/18/20 02:00 28 136/70 Mechanical Ventilator 40 06/18/20 02:00 28 40 06/18/20 01:30 123 30 152/86 (108) 93 06/18/20 01:30 123 30 152/86 (108) 93 06/18/20 01:00 120 29 144/85 (104) 94 06/18/20 01:00 30 144/85 Mechanical Ventilator 40 06/18/20 01:00 28 Mechanical Ventilator 40 06/18/20 01:00 120 29 144/85 (104) 94 06/18/20 00:30 113 28 137/83 (101) 94 06/18/20 00:30 113 28 137/83 (101) 94 06/18/20 00:00 45 06/18/20 00:00 28 144/86 Mechanical Ventilator 40 06/18/20 00:00 28 Mechanical Ventilator 40 06/18/20 00:00 115 06/18/20 00:00 100.0 107 26 125/81 (96) 95 06/18/20 00:00 107 26 125/81 (96) 95 06/18/20 00:00 Mechanical Ventilator Mechanical Ventilator 06/17/20 23:15 105 28 40 06/17/20 23:00 109 28 126/79 (95) 96 06/17/20 23:00 28 126/80 Mechanical Ventilator 40 06/17/20 23:00 30 Mechanical Ventilator 40 06/17/20 22:30 111 28 130/79 (96) 96 06/17/20 22:00 114 28 135/80 (98) 96 06/17/20 22:00 20 126/80 Mechanical Ventilator 40 06/17/20 22:00 30 Mechanical Ventilator 40 06/17/20 21:00 28 134/81 Mechanical Ventilator 40 06/17/20 21:00 28 Mechanical Ventilator 40 06/17/20 21:00 112 27 134/81 (98) 96 06/17/20 20:39 113 120/80 06/17/20 20:00 97.1 106 28 114/77 (89) 97 06/17/20 20:00 113 06/17/20 20:00 28 114/76 Mechanical Ventilator 40 06/17/20 20:00 28 Mechanical Ventilator 40 06/17/20 20:00 45 06/17/20 20:00 Mechanical Ventilator Mechanical Ventilator 06/17/20 19:00 106 28 118/75 (89) 97 06/17/20 19:00 28 118/75 Endotracheal Tube 45 06/17/20 19:00 28 Endotracheal Tube 45 06/17/20 18:54 106 28 45 06/17/20 18:00 108 28 122/76 (91) 96 20 18:00 28 120/80 Endotracheal Tube 45 20 18:00 28 Endotracheal Tube 45 06/17/20 17:40 30 Endotracheal Tube 45 06/17/20 17:00 28 133/78 Endotracheal Tube 45 06/17/20 17:00 28 45 06/17/20 17:00 101.6 120 29 133/78 (96) 99 06/17/20 16:44 101.4 06/17/20 16:12 135 159/84 06/17/20 16:00 100.5 141 28 159/84 (109) 100 06/17/20 16:00 113 06/17/20 16:00 45 06/17/20 16:00 30 159/84 Endotracheal Tube 45 06/17/20 16:00 30 Endotracheal Tube 45 06/17/20 16:00 Mechanical Ventilator Mechanical Ventilator 06/17/20 15:54 140 31 60 06/17/20 15:38 140 31 167/91 99 06/17/20 15:08 137 28 176/95 95 06/17/20 15:00 31 176/95 Endotracheal Tube 45 06/17/20 15:00 31 Endotracheal Tube 45 06/17/20 15:00 135 31 176/95 (122) 100 06/17/20 14:00 29 161/98 Endotracheal Tube 45 06/17/20 14:00 29 45 06/17/20 14:00 116 28 161/98 (119) 100 06/17/20 13:54 117 144/91 06/17/20 13:00 118 28 147/88 (107) 98 06/17/20 13:00 28 147/88 Endotracheal Tube 45 06/17/20 13:00 28 Endotracheal Tube 45 Height (Feet): 5 Height (Inches): 6.00 Weight (Pounds): 160 HEENT: other - intubated Laboratory Tests Test 06/18/20 04:19 White Blood Count 16.3 K/UL (4.8-10.8) H Red Blood Count 4.99 M/UL (4.20-5.40) Hemoglobin 15.0 G/DL (12.0-16.0) Hematocrit 46.6 % (37.0-47.0) Mean Corpuscular Volume 93 FL (80-99) Mean Corpuscular Hemoglobin 30.2 PG (27.0-31.0) Mean Corpuscular Hemoglobin Concent 32.3 G/DL (32.0-36.0) Red Cell Distribution Width 13.9 % (11.6-14.8) Platelet Count 210 K/UL (150-450) Mean Platelet Volume 8.6 FL (6.5-10.1) Neutrophils (%) (Auto) % (45.0-75.0) Lymphocytes (%) (Auto) % (20.0-45.0) Monocytes (%) (Auto) % (1.0-10.0) Eosinophils (%) (Auto) % (0.0-3.0) Basophils (%) (Auto) % (0.0-2.0) Differential Total Cells Counted 100 Neutrophils % (Manual) 93 % (45-75) H Lymphocytes % (Manual) 4 % (20-45) L Monocytes % (Manual) 3 % (1-10) Eosinophils % (Manual) 0 % (0-3) Basophils % (Manual) 0 % (0-2) Band Neutrophils 0 % (0-8) Platelet Estimate Adequate Platelet Morphology Normal Red Blood Cell Morphology Normal Sodium Level 154 MMOL/L (136-145) H Potassium Level 5.8 MMOL/L (3.5-5.1) H Chloride Level 116 MMOL/L (98-107) H Carbon Dioxide Level 32 MMOL/L (21-32) Anion Gap 6 mmol/L (5-15) Blood Urea Nitrogen 66 mg/dL (7-18) H Creatinine 2.0 MG/DL (0.55-1.30) H Estimat Glomerular Filtration Rate 32.8 mL/min (>60) Glucose Level 480 MG/DL (74-106) #H Calcium Level 8.9 MG/DL (8.5-10.1) Total Bilirubin 0.4 MG/DL (0.2-1.0) Direct Bilirubin 0.2 MG/DL (0.0-0.3) Aspartate Amino Transf (AST/SGOT) 55 U/L (15-37) H Alanine Aminotransferase (ALT/SGPT) 61 U/L (12-78) Alkaline Phosphatase 113 U/L (46-116) Total Protein 8.6 G/DL (6.4-8.2) H Albumin 2.2 G/DL (3.4-5.0) L Globulin 6.4 g/dL Albumin/Globulin Ratio 0.3 (1.0-2.7) L Current Medications Medications (Trade) Dose Ordered Sig/Candis Route PRN Reason Start Time Stop Time Status Last Admin Dose Admin Acetaminophen (Tylenol) 650 mg Q4H PRN ORAL fever 06/11/20 19:30 07/11/20 19:29 06/18/20 08:26 Chlorhexidine Gluconate (Hortencia-Hex 2%) 1 applic DAILY@2000 TOPIC 06/18/20 20:00 09/16/20 19:59 Dexamethasone Sodium Phosphate (Decadron 4mg/ml vial) 6 mg DAILY IVP 06/12/20 09:00 06/20/20 09:01 06/18/20 08:26 Dextrose (Dextrose 50%) 25 ml Q30M PRN IV HYPOGLYCEMIA 06/18/20 11:15 09/16/20 11:14 Dextrose (Dextrose 50%) 50 ml Q30M PRN IV HYPOGLYCEMIA 06/18/20 11:15 09/16/20 11:14 Enoxaparin Sodium (Lovenox) 40 mg DAILY SUBQ 06/12/20 09:00 09/10/20 08:59 06/18/20 08:30 Fentanyl Citrate 250 ml @ 1 mls/hr Q24H IV 06/16/20 18:30 06/18/20 18:29 06/18/20 08:25 Heparin Sodium/ Sodium Chloride (Heparin 1000 units/500ml Premix) 1,000 unit ONCE PRN IV PICC LINE 06/18/20 11:15 06/20/20 23:59 Insulin Aspart (NovoLOG) BEFORE MEALS AND HS SUBQ 06/18/20 12:00 09/16/20 11:59 Insulin Detemir (Levemir) 10 units DAILY SUBQ 06/18/20 12:00 09/16/20 11:59 Lidocaine HCl (Xylocaine 1% 30ml) 30 ml ONCE PRN INJ PICC LINE 06/18/20 11:15 06/20/20 11:14 Lorazepam (Ativan 2mg/ml 1ml) 1 mg Q2H PRN IV For Anxiety 06/17/20 13:45 06/24/20 13:44 06/17/20 15:08 Metoprolol Tartrate (Lopressor) 25 mg Q12HR ORAL 06/17/20 13:00 09/15/20 12:59 06/18/20 08:27 Midazolam HCl 100 mg/Sodium Chloride 200 ml @ 0 mls/hr Q24H IV 06/13/20 14:00 06/18/20 13:59 06/18/20 08:24 Sodium Chloride 1,000 ml @ 100 mls/hr Q10H IV 06/18/20 12:30 07/18/20 12:29 Kyle Calderon MD Jun 18, 2020 12:39
[2020-06-18] MEDS ORDERED: Etomidate 40mg/20ml Inj IV ONE (12:41)
[2020-06-18] MEDS ORDERED: Rocuronium Bromide 50mg/5ml Inj IV ONE (12:41)
[2020-06-18] MEDS: NovoLOG Insulin Flexpen SUBQ SCH ×2 (13:14→18:14)
[2020-06-18] MEDS ORDERED: Midazolam for drip 50 MG in NS 90 ML IV PRN (15:35)
--- NOTE | 2020-06-18 15:41 | Brief Operative Note ---
Immediate Post Operative Note Operative Note Pre-op Diagnosis: needs IV access Procedure: PICC Post-op Diagnosis: same as pre-op Surgeon: Antonio Lazo Anesthesia: local Specimen: none Complications: none Fluids: none Implant(s) used?: No Sergio Lazo MD Jun 18, 2020 15:41
--- NOTE | 2020-06-18 15:45 | Consultation ---
DATE OF CONSULTATION: 06/18/2020 NEPHROLOGY CONSULTATION CONSULTING PHYSICIAN: Yasmin Riley MD. ATTENDING PHYSICIAN: Robinson Bolton MD. REASON FOR CONSULTATION: Elevated BUN and creatinine and abnormal electrolytes. HISTORY OF PRESENT ILLNESS: This is a 44-year-old lady admitted to the hospital with multiple medical problems including COVID-19 pneumonia, HIV, and lymphopenia. I am asked to see the patient for elevation of BUN and creatinine, and electrolyte abnormalities. PAST MEDICAL HISTORY: 1. HIV. 2. Type 2 diabetes. CURRENT MEDICATIONS: IV fluids half normal saline and fentanyl drip, midazolam drip, remdesivir, Tylenol as needed, dexamethasone, Lovenox, insulin sliding scale, Levemir, lorazepam as needed, Lopressor as needed. ALLERGIES: No known allergies. FAMILY HISTORY: Unable to obtain due to mental status. SOCIAL HISTORY: Unable to obtain due to mental status. REVIEW OF SYSTEMS: Unable to obtain due to mental status. PHYSICAL EXAMINATION: GENERAL: This is a middle-aged female who is in no acute distress. VITAL SIGNS: Blood pressure is 114/70, pulse 90 and regular, respirations 22. HEENT: The head is normocephalic and atraumatic. Pupils are equal, round and reactive to light and accommodation. The patient is intubated. NECK: Supple. Trachea midline. There was no lymphadenopathy or thyromegaly. LUNGS: Bilateral wheezes. HEART: Regular rate and rhythm without rubs, murmurs, or gallops. ABDOMEN: Soft and nontender. Bowel sounds were active. EXTREMITIES: No clubbing, cyanosis, or edema. NEUROLOGIC: She is sedated. LABORATORY AND ANCILLARY DATA: CBC shows white count of 16,300, hematocrit is 46.6, and platelet count is 210,000. Chemistry, sodium 154, potassium 5.8, BUN 66, creatinine 2. Urinalysis - 3+ protein, 4+ blood. Chest x-ray shows bilateral mid and lower lung infiltrates. ASSESSMENT: 1. Acute kidney injury, multifactorial, most likely due to COVID-19 and HIV. 2. HIV. 3. Type 2 diabetes. PLAN: 1. Change IV fluids to hypotonic. 2. Treat hyperkalemia if needed. Thank you, Dr. Junior and Dr. Bolton, for letting me to participate in the care of this patient. Yasmin Riley M.D. DR: STARLA JOB#: [id number] CC: ESTRELLA
--- NOTE | 2020-06-18 18:26 | Diagnostic Imaging Report ---
Indications: Needs long-term IV access Technique: Procedure performed at bedside. Procedural timeout performed. Ultrasound confirms patent compressible left basilic vein. Total sterile technique, including sterile probe cover and sterile gel, sterile gloves, hand hygiene, hat, mask,, sterile gown, large sterile drape, and preparation with 2% chlorhexidine utilized. Local anesthesia with 1% lidocaine. Under real-time ultrasound guidance, puncture basilic vein using 21-gauge needle, passage 0.018 guidewire, exchange for 4 Faroese peel-away sheath. 4 Faroese Bard dual-lumen power PICC cut to 46 cm. It was inserted through the peel-away sheath. Peel-away sheath and guidewire removed. Catheter fixed to the skin. Both catheter ports aspirated and flushed. Patient tolerated procedure well, without immediate complication. Followup chest x-ray obtained, documents catheter tip position at the cavoatrial junction Impression: Successful bedside placement of left arm PICC under sonographic guidance, as described above.
--- NOTE | 2020-06-18 18:39 | Diagnostic Imaging Report ---
Indication: Abnormal renal function tests Technique: Grayscale and duplex images of the kidneys, retroperitoneum, and bladder were obtained. Comparison: none Findings: Right kidney measures 10.7 cm in length. Left kidney measures 11.2 cm in length. Both kidneys demonstrate normal echogenicity. No hydronephrosis. No focal abnormality. Normal inferior vena cava. Bladder contains a Ryan catheter. Calculated bladder volume is 43 mL despite the Ryan catheter. Impression: Normal kidneys. No hydronephrosis Ryan catheter in place. Small amount of retained urine despite Ryan catheter.
[2020-06-18] MEDS ORDERED: Insulin Reg 100 units Premix 100 ML IV SCH (19:00)
[2020-06-18] MEDS ORDERED: Insulin Human Regular 100units/ml 3ml IV PRN ×2 (19:00)
[2020-06-18] MEDS ORDERED: Insulin Rate Change 1 Each MISC PRN (19:00)
[2020-06-18] MEDS ORDERED: Norepinephrine 4mg/NS Premix 250 ML IV SCH (19:35)
[2020-06-18] MEDS ORDERED: D5 1/2NS 1,000 ML IV SCH (19:42)
[2020-06-18] MEDS ORDERED: Dyna-Hex 2% Top Sol 2oz TOPIC SCH (20:00)
[2020-06-18] MEDS ORDERED: Calcium Chloride 10% 10ml carpuject IVP ONE (20:06)
[2020-06-18] MEDS ORDERED: Sodium Bicarbonate 50ml Carp ONE (20:06)
[2020-06-18] MEDS ORDERED: NovoLOG Insulin Flexpen SUBQ SCH (21:00)
--- NOTE | 2020-06-18 22:15 | Emergency Room Report ---
History of Present Illness General Chief Complaint: Dyspnea/Respdistress Source: Patient, EMS Present Illness Allergies: Coded Allergies: No Known Allergies (Unverified , 06/11/20) COVID-19 Screening Contact w/high risk pt: No Experienced COVID-19 symptoms?: Yes COVID-19 Testing performed CAR PILOT: No COVID-19 Screening: Positive COVID-19 COVID-19 Testing Source: 06/09/20 Nursing Documentation-[facility] Hx Asthma: Yes Hx Diabetes: Yes Physical Exam Vital Signs Date Time Temp Pulse Resp B/P (MAP) Pulse Ox O2 Delivery O2 Flow Rate FiO2 06/14/20 07:00 24 156/79 Mechanical Ventilator 90 06/14/20 07:00 111 92 06/14/20 08:00 101.0 06/16/20 23:00 15.0 Procedures CPR/Code Blue CPR/Code Blue Narrative See CODE BLUE sheet for full narrative Medical Decision Making Diagnostic Impression: Primary Impression: Pneumonia Additional Impressions: Elevated d-dimer Suspected COVID-19 virus infection Hypoxia JIMENA (acute kidney injury) ER Course I was called to this CODE BLUE in the ICU. Covid positive. Intubated. Patient became bradycardic and then went into asystole. After multiple rounds of medication patient regained pulses. Shortly after patient coded again. After multiple rounds of medication patient remains in asystole. Prognosis is poor. Resuscitative efforts terminated. Patient expires Last Vital Signs Date Time Temp Pulse Resp B/P (MAP) Pulse Ox O2 Delivery O2 Flow Rate FiO2 06/18/20 18:30 128 33 91/48 (62) 93 06/18/20 17:24 Mechanical Ventilator 40 06/18/20 16:05 102.2 06/16/20 23:02 15.0 Status: worsened Disposition: Condition: Referrals: NOT CHOSEN IPA/,REFERRING (PCP) Sheldon Meeks MD Jun 18, 2020 22:15
== END 2020-06-18 20:07 | disposition expired | DRG 207 ==
LOC: EDUNIT# 05:25 → EDBD 05:25 → EMR 06:31 → ICU 07:09 → EDBEDREQSVC 21:19 → EDBEDREQ 21:19
PROC: 5A1955Z Respiratory Ventilation, Greater than 96 Consecutive Hours (ICD-10-PCS; principal; 2020-06-11)
PROC: 0BH17EZ Insertion of Endotracheal Airway into Trachea, Via Natural or Artificial Opening (ICD-10-PCS; principal; 2020-06-11)
PROC: XW033E5 Introduction of Remdesivir Anti-infective into Peripheral Vein, Percutaneous Approach, New Technology Group 5 (ICD-10-PCS; 2020-06-13)
PROC: B548ZZA Ultrasonography of Superior Vena Cava, Guidance (ICD-10-PCS; 2020-06-18)
PROC: 02HV33Z Insertion of Infusion Device into Superior Vena Cava, Percutaneous Approach (ICD-10-PCS; 2020-06-18)
DX: U07.1 COVID-19 (principal); A41.9 Sepsis, unspecified organism; J12.89 Other viral pneumonia; J96.01 Acute respiratory failure with hypoxia; N17.9 Acute kidney failure, unspecified; M62.82 Rhabdomyolysis; I47.1 Supraventricular tachycardia; E87.0 Hyperosmolality and hypernatremia; E86.0 Dehydration; I25.9 Chronic ischemic heart disease, unspecified; R00.1 Bradycardia, unspecified
CPT/HCPCS: 36415; 36569; 71045; 74018; 76770; 76937; 80048; 80053; 80076; 81003; 82248; 82550; 82553; 82728; 82803; 82962; 83605; 83615; 83690; 83735; 83880; 84100; 84478; 84484; 85007; 85025; 85379; 85610; 85730; 86140; 87040; 87081; 92950; 93005; 93970; 94002; 94003; 94640; 96361; 96365; 96367; 96375; 99291; J0171; J1815; J2250; J3490; J7030; J7620; S5561